=== PATIENT | male | born 1955 | race Caucasian/White ===

== ENCOUNTER → 2019-09-23 07:41 | Outpatient (BNVA) | payer BC, SELFPAY | PROVIDERS: Family Provider Family Medicine; PCP Family Medicine; Visit Provider Urology | DX: Z12.5 Encounter for screening for malignant neoplasm of prostate (principal); N41.9 Inflammatory disease of prostate, unspecified; N41.1 Chronic prostatitis | CPT/HCPCS: 81001 ==

== ENCOUNTER 2020-03-15 07:51 | Outpatient (CLI) | payer OTHER, SELFPAY ==
[2020-03-15 08:30] VITALS: BMI 25.0
--- NOTE | 2020-03-15 08:30 | ECG_ITS ---
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 Interpretive Statements NAME OF STUDY: EXERCISE SESTAMIBI STRESS TEST INDICATION: [Chest Pain, ] Procedure:At the baseline, the blood pressure was 150/76 mmHg with a heart rate of 91 Bpm. The electrocardiogram showed sinus rhythm with . Normal axis. Patient exercised for a total of 7 minutes and 26 seconds. Maximum heart rate was 138 which is 87% of maximum predicted heart rate ,with a blood pressure 199/64 mmHg. The EKG at the peak infusion revealed sinus rhythm with no significant ST-T wave changes. Right bundle branch block was noted at the end of the recovery.. Blood pressure at the end of the recovery phase was 161/70 mmHg with a heart rate of 96 beats per minute. CONCLUSION: 1. No significant EKG changes with the LexiScan infusion. 2. No LexiScan induced chest pain or cardiac arrhythmia. 3. Hypertensive blood pressure response. Normal heart rate response. 4. Myocardial perfusion images will be interpreted separately. Electronically Signed On 03-17-2020 9:35:32 CDT by Anders Dietrich M.D. [id number]
--- NOTE | 2020-03-15 08:30 | NMCV_ITS ---
NM rosales perf SPECT r/s* [id number] Tom Peguero Age: 64 Gender: M : 1955 Exam Date: 03/15/2020 08:30 Ordering Phys: Sony Swift MD Technologist: SHIRLEY Ludwig Exam Location: [facility] Indications: CAD STRESS TEST Please see separate stress test report in [facility] for full findings IMAGE PROTOCOL Rest/Stress 1 Exercise Day Radiopharmaceutical Dose (mCi) Administration Site Administered by Rest: Tc-99m 10.9 IV SHIRLEY Ludwig Sestamibi Stress:Tc-99m 32.7 IV SHIRLEY Turner Sestamibi Rest: 15-Mar-2020 60 Discovery 630 Stress: 15-Mar-2020 30 Discovery 630 Radiopharmaceutical was injected at 85 % maximum heart rate. Images obtained in supine and prone position. SPECT RESULTS Technical Quality: Excellent Raw Data Analysis: Normal Image Corrections: No attenuation or motion correction applied Summed Stress Score: 0 Summed Rest Score: 0 Summed Difference Score: 0 PERFUSION FINDINGS Fairly uniform myocardial tracer uptake with no significant perfusion abnormalities FUNCTIONAL RESULTS (calculated via Gated SPECT) Stress Image LV EF (%): 57 Stress EDV (mL):54 TID: 0.97 Stress ESV (mL):23 FUNCTIONAL FINDINGS: Segmental wall motion analysis revealing no gross wall motion normalities IMPRESSIONS 1. Unremarkable myocardial perfusion imaging 2. Normal LV ejection fraction 57%. 3. LV wall motion analysis revealing no gross wall motion normalities. 4. Normal LV volume. No significant coronary ischemia, based on the above finding Dr Spencer Blakely MD FACC (Electronically Signed) Final Date: 15 March 2020 12:40 S
[2020-03-15 10:09] VITALS: BP 172/75; PULSE 96
== END 2020-03-15 07:52 | disposition home or self-care (01) ==
PROVIDERS: PCP Family Medicine; Visit Provider Family Medicine
DX: I25.10 Atherosclerotic heart disease of native coronary artery without angina pectoris (principal); R07.9 Chest pain, unspecified
CPT/HCPCS: 78452; 93017; A9500

== ENCOUNTER 2020-06-02 20:02 | Observation (INO) | payer OTHER, SELFPAY ==
[2020-06-02] VITALS (11 sets, daily range): BP systolic 146–182; BP diastolic 85–106; PULSE 64–79; RESP 12–22; TEMP 36.6–36.9; O2SAT 22–98; BMI 25.8
--- NOTE | 2020-06-02 20:05 | ECG_ITS ---
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 Measurements Intervals [place] Rate: 72 P: 51 [place]: 154 QRS: 48 QRSD: 144 T: 42 QT: 404 QTc: 443 Interpretive Statements SINUS RHYTHM RIGHT BUNDLE BRANCH BLOCK [120+ ms QRS DURATION, UPRIGHT V1, 40+ ms S IN I/aVL/V4/V5/V6] Compared to ECG 02/02/2019 21:18:35 Right bundle-branch block now present Sinus bradycardia no longer present Electronically Signed On 06-02-2020 22:33:33 SECOND GRADE TEACHER by Jenny Marie M.D. [id number]
--- NOTE | 2020-06-02 20:05 | XR_ITS ---
WS: [id number] XR chest 1V portable [id number] REASON FOR EXAM: cp FINDINGS: The chest is unchanged compared to previous examination of 02/02/2019. The heart and mediastinum are within normal limits. No active pulmonary parenchymal or pleural disease identified. Calcified granulomatous changes in bot h lungs. No significant abnormality of the bony thorax. XR/XR chest 1V portable [id number] IMPRESSION: No acute chest abnormality.
--- NOTE | 2020-06-02 20:26 | ED_ITS ---
HPI - Chest Pain General: Chief Complaint: Chest Pain Stated Complaint: cp Time Seen by Provider: 06/02/20 20:17 Source: patient Mode of arrival: ambulatory Limitations: no limitations History of Present Illness: HPI narrative: Mr. Peguero is a nice 64-year-old male who comes in complaining of intermittent chest pain for the past 3 days. He describes the pain is severe in the upper center of his chest. Radiates through sometimes to his back. He denies any associated shortness of breath, nausea vomiting or diaphoresis. He does claim even the most minimal exertion will bring his pain on. Currently at this time he is resting and he states he has no pain. Rest does make the pain better he did not try any nitroglycerin as what he has at home has . Patient states that the symptoms feel exactly like when he had a heart attack in the past. Patient had 2 stents placed at that time. Associated symptoms: Deny abdominal pain, diaphoresis, dyspnea, fever(s), nausea, palpitations, syncope or vomiting Review of Systems Const: Denies: fever(s), chills, body aches, fatigue, malaise or diaphoresis Eyes: Denies: change in vision, blurry vision, photophobia, eye discomfort, eye discharge, eye redness or yellow eyes ENMT: Denies: throat pain, odynophagia, hoarseness, swelling of lips/tongue, ear or mastoid pain, ear discharge, change in hearing or nasal discharge Card: Reports: chest pain; Denies: palpitations, irregular heart rhythm, edema, lightheadedness, syncope, pre-syncope, dyspnea on exertion or orthopnea Resp: Denies: dyspnea, productive cough, non-productive cough, wheezing, hemoptysis or chest congestion GI: Denies: abdominal pain, nausea, vomiting, hematemesis, coffee ground emesis, heartburn, diarrhea, constipation, GI cramping, hematochezia or melena : Denies: flank pain, dysuria, urinary frequency, urinary urgency or hematuria Musc: Denies: neck pain, back pain, extremity pain, extremity swelling, joint pain, joint swelling, joint redness, joint warmth or joint stiffness Skin/Breast: Denies: rash, pruritus, erythema, skin pain or skin tenderness Neuro: Denies: headache(s), numbness in extremities, weakness in extremities, sensory changes, lack of coordination, difficulty walking, dizziness, vertigo, confusion, Slurred speech present or seizure-like activity Guilherme/Lymph: Denies: easy bruising, easy bleeding, petechiae, purpura or enlarged lymph nodes All/Imm: Denies: urticaria, throat swelling, tongue swelling, facial swelling or acute wheezing PFSH ED PFSH: Medical History (Updated 06/02/20 @ 23:34 by Saurabh Cuevas MD) Anxiety Arrhythmia CAD (coronary artery disease) Chronic prostatitis GERD (gastroesophageal reflux disease) Hyperlipidemia Hypertension Urinary calculus, unspecified Surgical History H/O heart artery stent H/O laminectomy H/O shoulder surgery Family History Mother , 62 CAD (coronary artery disease) Social History Smoking and tobacco status: never smoked Alcohol intake: never Adopted: No Caregiver/support person: No Lives independently: No Household members: spouse Marital status: Current occupational status: employed History of recent travel: No Current gender identity: Male Physical Exam Const: COMMON NORMALS: no acute distress, patient oriented x3, no limitations and alert GENERAL APPEARANCE: cooperative HENMT: COMMON NORMALS: normocephalic, atraumatic, external ears normal, EAC's normal and Normal external nose present HEAD & SCALP: normal to inspection, normocephalic and atraumatic FACE & SINUS: normal facial exam and face symmetric NOSE: Normal external nose present and Normal nares present EXTERNAL EAR: Yes external ears normal EXTERNAL AUDITORY CANAL: EAC's normal MOUTH: Normal oral and palatal mucosa present, lip normal and tongue normal Eye: COMMON NORMALS: Equal, round and reactive pupils present and conjunctivae normal GENERAL EYE: appearance normal, both eyes and all related structures ALIGNMENT: Yes alignment normal PERIORBITAL: periorbital findings normal EYELID: eyelids normal CONJUNCTIVA: Yes conjunctivae normal SCLERA: sclerae normal PUPIL: Yes Equal, round and reactive pupils present Neck/C-Spine: COMMON NORMALS: full ROM, no lymphadenopathy, supple, no meningeal signs and no JVD GENERAL: Yes normal visual inspection and Yes trachea midline Chest: COMMONS NORMALS: normal inspection of the chest and normal palpation of entire chest wall Resp: COMMON NORMALS: normal respiratory effort, No retractions, No use of accessory muscles and clear to auscultation bilaterally EFFORT & INSPECTION: Yes able to speak in complete sentences and Yes symmetric chest movement AUSCULTATION: clear to auscultation bilaterally, no crackles, no rales, no rhonchi and no wheezes Cardio: COMMON NORMALS: no JVD, regular rate, regular rhythm, S1 normal heart sound present and S2 normal heart sound present RATE: regular rate RHYTHM: regular rhythm HEART SOUNDS: S1 normal heart sound present, S2 normal heart sound present, no click, no gallops, no murmurs and no rubs GI: COMMON NORMALS: Soft to palpation and No hepatosplenomegaly present PALPATION: Yes Soft to palpation, No Tenderness to palpation present (GI), No Guarding due to palpation present (GI), No Rigid due to palpation, Yes No hepatosplenomegaly present, No Hernia present, No Palpable mass present and No Pulsatile mass present : COMMON NORMALS: Yes no CVA tenderness BLADDER/KIDNEY EXAM: Yes no CVA tenderness Back/Pelvis: COMMON NORMALS: no CVA tenderness, thoracic and lumbar spine normal to inspection, no thoracic nor lumbar tenderness and thoraco-lumbar ROM normal Extremity: COMMON NORMALS: normal to inspection, full ROM, capillary refill normal, no joint enlargement, no clubbing, cyanosis or edema and no calf tenderness Neuro: COMMON NORMALS: patient oriented x3, CN's II-XII intact bilaterally, moves all extremities, no focal motor deficits and no sensory deficits noted SENSORIUM/ORIENTATION: Yes alert MENINGEAL SIGNS: Yes no meningeal signs SPEECH: speech normal Psych: COMMON NORMALS: mental status grossly normal, Normal thought process present, cooperative, normal affect, speech normal and activity/motor behavior normal SPEECH: Yes normal speech THOUGHT PROCESS: Normal thought process present Skin: COMMON NORMALS: no rashes or lesions noted, turgor normal, no jaundice, no petechiae and no mottling GENERAL SKIN EXAM: no rashes or lesions noted and turgor normal Course Vital Signs: Vital signs: Vital Signs Temperature 97.9 F 06/02/20 23:45 Pulse Rate 72 06/02/20 23:52 Respiratory Rate 20 H 06/02/20 23:54 Blood Pressure 149/92 06/02/20 23:54 Pulse Oximetry 97 06/02/20 23:24 MDM - Chest Pain MDM Narrative: Medical decision making narrative: Mr. Peguero is a nice 64-year-old male who comes in complaining of chest pain. The chest pain that he has is similar to when he had a heart attack in the past. So far his cardiac enzymes have been negative x2 and his EKG shows a stable right bundle branch block. Patient is pain-free after half a milligram of Dilaudid. He had declined nitroglycerin as he had adverse reaction to it in the past. CTA is negative. I have reviewed the case in full with Dr. Cuevas who agrees to come and evaluate the patient and admit for further cardiac evaluation. Lab Data: Attestation: I reviewed the patient's lab results. Labs: Lab Results 06/02/20 06/02/20 06/02/20 Range/Units 20:35 20:35 20:35 WBC 5.5 (4.0-10.0) 10^3/ uL RBC 5.21 (4.1-5.3) 10^6/u L Hgb 15.3 (11.7-16.6) g/dL Hct 46.0 (42.0-52.0) % MCV 88.3 (80-94) fL MCH 29.4 (28.0-34.0) pg MCHC 33.3 (30.0-36.0) g/dL RDW 13.5 (12.1-15.1) % Plt Count 140 (130-400) 10^3/c mm MPV 9.2 (7.4-10.4) fL Neut % (Auto) 66.9 % Lymph % (Auto) 23.0 % Weakley % (Auto) 7.3 % Eos % (Auto) 2.0 % Baso % (Auto) 0.4 % Neut # (Auto) 3.67 (1.8-7.7) 10^3/u L Lymph # (Auto) 1.3 (0.8-4.8) 10^3/u L Weakley # (Auto) 0.4 (0.2-0.9) 10^3/u L Eos # (Auto) 0.1 (0.0-0.8) 10^3/u L Baso # (Auto) 0.0 (0.0-0.1) 10^3/u L Nucleated RBC % (a uto) 0 % Nucleated RBCs # 0.0 /100WBC PT 13.10 (12.1-14.9) SECO NDS INR 0.96 (0.8-1.2) Sodium 139 (136-145) mmol/L Potassium 3.5 (3.5-5.1) mmol/L Chloride 104 (98-107) mmol/L Carbon Dioxide 25 (22-29) mmol/L Anion Gap 13.5 (5-19) BUN 20 (8-23) mg/dL Creatinine 0.9 (0.7-1.2) mg/dL GFR Calculation 85.5 L (90-130) mL/min Glucose 152 H (65-115) mg/dL Calculated Osmolal ity 294 (285-295) mOsm/k g Calcium 9.6 (8.5-10.5) mg/dL Total Bilirubin 1.4 H (0.15-1.2) mg/dL AST 21 (0-40) U/L ALT 26 (0-41) U/L Alkaline Phosphata se 87 (40-130) IU/L Troponin T Baselin e (0-15) ng/L Troponin T 120 Min fabian (0-15) ng/L Delta Troponin T (0-10) ABS# Total Protein 6.8 (6.6-8.7) g/dL Albumin 4.6 (3.5-5.2) g/dL Globulin 2.2 (1.3-4.6) g/dL 06/02/20 06/02/20 Range/Units 20:35 22:00 WBC (4.0-10.0) 10^3/ uL RBC (4.1-5.3) 10^6/u L Hgb (11.7-16.6) g/dL Hct (42.0-52.0) % MCV (80-94) fL MCH (28.0-34.0) pg MCHC (30.0-36.0) g/dL RDW (12.1-15.1) % Plt Count (130-400) 10^3/c mm MPV (7.4-10.4) fL Neut % (Auto) % Lymph % (Auto) % Weakley % (Auto) % Eos % (Auto) % Baso % (Auto) % Neut # (Auto) (1.8-7.7) 10^3/u L Lymph # (Auto) (0.8-4.8) 10^3/u L Weakley # (Auto) (0.2-0.9) 10^3/u L Eos # (Auto) (0.0-0.8) 10^3/u L Baso # (Auto) (0.0-0.1) 10^3/u L Nucleated RBC % (a uto) % Nucleated RBCs # /100WBC PT (12.1-14.9) SECO NDS INR (0.8-1.2) Sodium (136-145) mmol/L Potassium (3.5-5.1) mmol/L Chloride (98-107) mmol/L Carbon Dioxide (22-29) mmol/L Anion Gap (5-19) BUN (8-23) mg/dL Creatinine (0.7-1.2) mg/dL GFR Calculation (90-130) mL/min Glucose (65-115) mg/dL Calculated Osmolal ity (285-295) mOsm/k g Calcium (8.5-10.5) mg/dL Total Bilirubin (0.15-1.2) mg/dL AST (0-40) U/L ALT (0-41) U/L Alkaline Phosphata se (40-130) IU/L Troponin T Baselin e 6 (0-15) ng/L Troponin T 120 Min fabian 6.61 (0-15) ng/L Delta Troponin T 0.61 (0-10) ABS# Total Protein (6.6-8.7) g/dL Albumin (3.5-5.2) g/dL Globulin (1.3-4.6) g/dL Imaging Data^: CXR: Attestation: I personally reviewed and interpreted this imaging study as follows: My impression: No acute cardiopulmonary findings. CT Chest: Radiologist's impression: [address] [address] [address] Scan Report Signed Patient: Tom Peguero Unit #: [id number] : 1955 Age/Sex: 64 / M ADM Date: 06/02/20 Loc: ER Room/Bed: Attending Dr: Ordering Provider/Ordering MD: Kat Wakefield DO Date of Service: 06/02/20 Procedure(s): CT angio chest PE protcl [id number] Accession Number(s): [id number] Report Number: [id number] PROCEDURE INFORMATION: Exam: CT Angiography Chest With Contrast Exam date and time: 06/02/2020 10:03 PM Age: 64 years old Clinical indication: Pain; Shortness of breath; Chest pressure; Prior surgery; Surgery type: Stents; Additional info: Chest pain TECHNIQUE: Imaging protocol: Computed tomographic angiography of the chest with intravenous contrast. 3D rendering (Not supervised by radiologist): MIP and/or 3D reconstructed images were created by the technologist. Radiation optimization: All CT scans at this facility use at least one of these dose optimization techniques: automated exposure control; mA and/or kV adjustment per patient size (includes targeted exams where dose is matched to clinical indication); or iterative reconstruction. Contrast material: OMNI 350; Contrast volume: 93 ml; Contrast route: INTRAVENOUS (IV); COMPARISON: CT chest w con* [id number] 09/20/2018 10:22 AM RADIATION DOSE METRICS: Total DLP (mGy-cm): 667.36 FINDINGS: Pulmonary arteries: Pulmonary arteries are well opacified. Pulmonary arteries are normal in caliber. No filling defects are demonstrated. No evidence of pulmonary embolism. Aorta: Atherosclerosis of the thoracic aorta. No aneurysm or dissection. Lungs: Mild dependent atelectasis at the lung bases. Additional atelectasis noted in the lingula and left lower lobe. No consolidative pulmonary infiltrate noted. Pleural space: No pneumothorax. No pleural effusion. Heart: Mild cardiomegaly is noted. No pericardial effusion. Lymph nodes: No pathologically enlarged lymph nodes are demonstrated. Liver: Calcified granulomas are seen in the liver. Spleen: Calcified granulomas are noted in the spleen. Kidneys and ureters: Bilateral simple appearing renal cysts measuring up to 8 cm in diameter noted. Bones/joints: Unremarkable. No acute fracture. Soft tissues: Unremarkable. CT/CT angio chest PE protcl [id number] IMPRESSION: 1. No evidence of pulmonary embolism. 2. No evidence of aortic dissection. 3. Mild cardiomegaly is noted. 4. Mild dependent atelectasis at the lung bases. Additional atelectasis noted in the lingula and left lower lobe. No consolidative pulmonary infiltrate noted. 5. Changes of old granulomatous disease are identified. COMMENTS: Consistent with the [place] [employer]'s Incidental Findings Committee white paper (J Am Kirk Radiol 2018): Any incidental renal lesion less than 1 cm or classified as too small to characterize, or any incidental cystic renal lesion characterized as simple-appearing, is likely benign. No follow-up imaging is recommended for these lesions per consensus recommendations based on imaging criteria. Radiation Dose CTDIVOL = (mGy): DLP = 667.36 (mGy-cm) Dictated By: Link Buckner MD Signed By: Link Buckner MD Signed Date/Time: 06/02/202240 DD/ 39 EKG Data^: EKG 1: Attestation: I personally reviewed and interpreted this EKG as follows: EKG interpretation date: 06/02/20 EKG interpretation time: 20:20 Interpretation: Normal sinus rhythm at 72 beats a minute, right bundle branch block, normal axis, nonspecific ST and T wave changes. EKG 2: Attestation: I personally reviewed and interpreted this EKG as follows: EKG interpretation date: 06/02/20 EKG interpretation time: 21:49 Discharge Plan Discharge Patient Disposition: Placed in Observation Admit Provider: Saurabh Cuevas Clinical Impression: Chest pain Qualifiers: Chest pain type: precordial pain Qualified Code(s): R07.2 - Precordial pain Condition: Stable Referrals: Sony Swift MD [Primary Care Provider] - Discharge Date/Time: 06/02/20 23:30 Coding Level of Care Code ED Renewable Energy Project Manager for Chg Fwd Exam Comprehensive
[2020-06-02] MEDS: aspirin 81 mg Chew Tablet 324 MG PO (20:50)
[2020-06-02 21:06] LABS: Basophils % 0.4 %; Eosinophils # 0.1 10^3/uL (0.0-0.8); Hemoglobin 15.3 g/dL (11.7-16.6); Lymphocytes # 1.3 10^3/uL (0.8-4.8); Mean Corpuscular HGB Conc 33.3 g/dL (30.0-36.0); Mean Corpuscular Hemoglobin 29.4 pg (28.0-34.0); Mean Corpuscular Volume 88.3 fL (80-94); Mean Platelet Volume 9.2 fL (7.4-10.4); Monocytes # 0.4 10^3/uL (0.2-0.9); Monocytes % 7.3 %; Neutrophils # 3.67 10^3/uL (1.8-7.7); Neutrophils % 66.9 %; Nucleated Red Blood Cells % 0 %; Platelet Count 140 10^3/cmm (130-400); Red Blood Count 5.21 10^6/uL (4.1-5.3); Red Cell Distribution Width 13.5 % (12.1-15.1); White Blood Count 5.5 10^3/uL (4.0-10.0)
[2020-06-02] MEDS: ondansetron 2 mg/ML SDV 2 mL 4 MG IVP (21:17)
[2020-06-02] MEDS: HYDROmorphone 1 mg/mL INJ 1 mL 0.5 MG IVP (21:18)
[2020-06-02 21:28] LABS: Alanine Aminotransferase 26 U/L (0-41); Albumin Level 4.6 g/dL (3.5-5.2); Alkaline Phosphatase 87 IU/L (40-130); Anion Gap 13.5 (5-19); Aspartate Amino Transferase 21 U/L (0-40); Blood Urea Nitrogen 20 mg/dL (8-23); Calcium 9.6 mg/dL (8.5-10.5); Carbon Dioxide 25 mmol/L (22-29); Chloride 104 mmol/L (98-107); Globulin 2.2 g/dL (1.3-4.6); Glomerular Filtration Rate 85.5 mL/min (90-130); Glucose 152 mg/dL (65-115); Osmolality Calculated 294 mOsm/kg (285-295); Potassium 3.5 mmol/L (3.5-5.1); Sodium 139 mmol/L (136-145); Total Bilirubin 1.4 mg/dL (0.15-1.2); Total Protein 6.8 g/dL (6.6-8.7); Troponin(5th) Baseline 6 ng/L (0-15)
[2020-06-02 21:35] LABS: INR 0.96 (0.8-1.2)
--- NOTE | 2020-06-02 21:45 | CTR_ITS ---
PROCEDURE INFORMATION: Exam: CT Angiography Chest With Contrast Exam date and time: 06/02/2020 10:03 PM Age: 64 years old Clinical indication: Pain; Shortness of breath; Chest pressure; Prior surgery; Surgery type: Stents; Additional info: Chest pain TECHNIQUE: Imaging protocol: Computed tomographic angiography of the chest with intravenous contrast. 3D rendering (Not supervised by radiologist): MIP and/or 3D reconstructed images were created by the technologist. Radiation optimization: All CT scans at this facility use at least one of these dose optimization techniques: automated exposure control; mA and/or kV adjustment per patient size (includes targeted exams where dose is matched to clinical indication); or iterative reconstruction. Contrast material: OMNI 350; Contrast volume: 93 ml; Contrast route: INTRAVENOUS (IV); COMPARISON: CT chest w con* [id number] 09/20/2018 10:22 AM RADIATION DOSE METRICS: Total DLP (mGy-cm): 667.36 FINDINGS: Pulmonary arteries: Pulmonary arteries are well opacified. Pulmonary arteries are normal in caliber. No filling defects are demonstrated. No evidence of pulmonary embolism. Aorta: Atherosclerosis of the thoracic aorta. No aneurysm or dissection. Lungs: Mild dependent atelectasis at the lung bases. Additional atelectasis noted in the lingula and left lower lobe. No consolidative pulmonary infiltrate noted. Pleural space: No pneumothorax. No pleural effusion. Heart: Mild cardiomegaly is noted. No pericardial effusion. Lymph nodes: No pathologically enlarged lymph nodes are demonstrated. Liver: Calcified granulomas are seen in the liver. Spleen: Calcified granulomas are noted in the spleen. Kidneys and ureters: Bilateral simple appearing renal cysts measuring up to 8 cm in diameter noted. Bones/joints: Unremarkable. No acute fracture. Soft tissues: Unremarkable. CT/CT angio chest PE protcl [id number] IMPRESSION: 1. No evidence of pulmonary embolism. 2. No evidence of aortic dissection. 3. Mild cardiomegaly is noted. 4. Mild dependent atelectasis at the lung bases. Additional atelectasis noted in the lingula and left lower lobe. No consolidative pulmonary infiltrate noted. 5. Changes of old granulomatous disease are identified. COMMENTS: Consistent with the [place] [employer]'s Incidental Findings Committee white paper (J Am Kirk Radiol 2018): Any incidental renal lesion less than 1 cm or classified as too small to characterize, or any incidental cystic renal lesion characterized as simple-appearing, is likely benign. No follow-up imaging is recommended for these lesions per consensus recommendations based on imaging criteria. Radiation Dose CTDIVOL = (mGy): DLP = 667.36 (mGy-cm)
--- NOTE | 2020-06-02 22:05 | ECG_ITS ---
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 Measurements Intervals [place] Rate: 71 P: 49 [place]: 157 QRS: 18 QRSD: 135 T: 31 QT: 404 QTc: 441 Interpretive Statements SINUS RHYTHM RIGHT BUNDLE BRANCH BLOCK [120+ ms QRS DURATION, UPRIGHT V1, 40+ ms S IN I/aVL/V4/V5/V6] Compared to ECG 06/02/2020 20:20:23 No significant changes Electronically Signed On 06-02-2020 22:39:11 SEAFOOD SPECIALIST by Jenny Marie M.D. [id number]
[2020-06-02] MEDS: iohexol 350 mg/mL 100 mL Btl IV (22:27)
[2020-06-02 22:45] LABS: Troponin 5 2HR 6.61 ng/L (0-15); Troponin 5 2HR Delta 0.61 ABS# (0-10)
--- NOTE | 2020-06-02 23:28 | PC.NURSE ---
pt reports last time he was given NITRO his BP dropped and he was coded
--- NOTE | 2020-06-02 23:33 | P.HP_ITS ---
Providers/Chief Complaint Admitting Physician: Saurabh Cuevas MD Primary Care Provider: Sony Swift MD Chief Complaint: cp History of Present Illness Tom Peguero is a 64 year old male with a past medical history of CAD status post stenting to obtuse marginal, LAD, in 2018 on aspirin, Plavix, not taking statin due to GI side effects, hypertension, hyperlipidemia, GERD who presents [facility] due to complaints of chest pain. Patient states on Sunday, he was moving a piece of light furniture, when he started to notice substernal chest pain, sharp, pressure-like, squeezing-like chest pain, some radiating to his back, associate with shortness of breath, no lightheadedness, dizziness, no nausea, no vomiting, lasting about 30 minutes, improving with rest. On Sunday, he tells me that he was walking to his truck in the morning, when he noticed similar type of chest pain, improving with rest, associated shortness of breath, Lasting a few minutes. And then again on Sunday evening, when he was walking from his truck, similar episodes of chest pain, thus he decided to come to the emergency room. He tells me that he has had similar characteristic chest pain when he had his stent placed to his obtuse marginal artery. Patient's pain resolved by the time he arrived to the emergency room, EKG right bundle branch block chronic, no acute ST-T wave weir es, baseline troponin was 6, and of 120-minute troponin was 6.61, delta of 0.6, CT angiogram of the chest did not show any pulmonary emboli or aortic dissection Review of Systems Const: Denies: fever(s), chills, fatigue or malaise Eyes: Denies: change in vision or blurry vision ENMT: Denies: nasal congestion Card: Reports: chest pain; Denies: edema, syncope or pre-syncope Resp: Reports: dyspnea; Denies: productive cough, non-productive cough or wheezing GI: Denies: abdominal pain, nausea, vomiting, hematemesis, diarrhea, constipation, hematochezia or melena : Denies: flank pain, difficulty urinating, dysuria or urinary frequency Musc: Denies: neck pain or back pain Skin/Breast: Denies: rash Neuro: Denies: headache(s), dizziness or vertigo Psych: Denies: anxiety or depression Endo: Denies: polyuria or polydipsia Medications/Allergies Home Medications Medication Instructions Recorded Confirmed Last Taken Type clopidogrel 75 mg tablet 75 mg PO DAILY #90 tab 11/07/19 06/02/20 06/02/20 Rx Metoprolol Tab 25 mg PO DAILY 06/02/20 06/02/20 Unknown History aspirin 81 mg PO DAILY 06/02/20 06/02/20 06/02/20 History ibuprofen 400 - 600 mg PO PRN 06/02/20 06/02/20 Unknown History multivitamin [Multiple Vitamins] 1 tab PO DAILY 06/02/20 06/02/20 Unknown His tory Allergies Allergy/AdvReac Type Severity Reaction Status Date / Time atorvastatin Allergy NA Verified 06/02/20 23:39 morphine Allergy NA Verified 06/02/20 23:39 nitroglycerin Allergy ADR/ALGY-Hy Verified 06/02/20 23:41 potension simvastatin Allergy NA Verified 06/02/20 23:39 PFSH Acute PFSH: Medical History Anxiety Arrhythmia CAD (coronary artery disease) Chronic prostatitis GERD (gastroesophageal reflux disease) Hyperlipidemia Hypertension Urinary calculus, unspecified Surgical History H/O heart artery stent H/O laminectomy H/O shoulder surgery Family History Mother , 62 CAD (coronary artery disease) Social History Smoking and tobacco status: never smoked Alcohol intake: never Adopted: No Caregiver/support person: No Lives independently: No Household members: spouse Marital status: Current occupational status: employed History of recent travel: No Current gender identity: Male Vitals/I&O/Wt Last Vital Signs Temp 98.5 F 06/02/20 20:15 Pulse 76 06/02/20 23:10 Resp 18 06/02/20 23:10 BP 155/85 06/02/20 23:10 Pulse Ox 98 06/02/20 23:10 Weight last 48 hrs Weight 77.111 kg Physical Exam Const: COMMON NORMALS: no acute distress and patient oriented x3 HENMT: COMMON NORMALS: normocephalic HEAD & SCALP: normocephalic Neck/C-Spine: COMMON NORMALS: no JVD Resp: COMMON NORMALS: normal respiratory effort, No retractions, No use of accessory muscles and clear to auscultation bilaterally AUSCULTATION: clear to auscultation bilaterally Cardio: COMMON NORMALS: no JVD, regular rate, regular rhythm, S1 normal heart sound present and S2 normal heart sound present RATE: regular rate RHYTHM: regular rhythm HEART SOUNDS: S1 normal heart sound present and S2 normal heart sound present GI: COMMON NORMALS: Normal to inspection, nondistended, normoactive bowel sounds present, Soft to palpation, non-tender, No hepatosplenomegaly present, no masses and no bruits PALPATION: Yes Soft to palpation and Yes No hepatosplenomegaly present Extremity: COMMON NORMALS: capillary refill normal, no clubbing, cyanosis or edema, no calf tenderness and no pedal edema Neuro: COMMON NORMALS: patient oriented x3 Psych: COMMON NORMALS: mental status grossly normal Data : 06/02/20 20:35 06/02/20 20:35 A&P Assessment and plan (1) Chest pain: -Chest pain does sound cardiac in etiology -History of CAD status post stenting to obtuse marginal and LAD -Is compliant with aspirin and Plavix -Has not been taking a statin due to GI side effects -Stress test March 15, 2020 showed EF 57%, wall motion revealing no gross wall motion abnormalities, no significant coronary ischemia on the stress test PLAN: -Admit to cardiac stepdown unit -Aspirin, statin, nitro, Plavix, beta-connor -Serial EKGs, serial troponins -Monitor for chest pain -Telemetry monitoring -Nitro as needed, monitor blood pressures and evaluate with nitroglycerin as patient tells me that he went into cardiac arrest when he was given too much nitroglycerin -Order cardiac echocardiogram Status: Acute Qualifiers: Chest pain type: precordial pain Qualified Code(s): R07.2 - Precordial pain (2) CAD (coronary artery disease): Status: Acute Qualifiers: Coronary Disease-Associated Artery/Lesion type: [place] artery [place] vs. transplanted heart: [place] heart Associated angina: with stable angina Qualified Code(s): I25.118 - Atherosclerotic heart disease of [place] coronary artery with other forms of angina pectoris (3) Hypertension: Status: Acute Qualifiers: Hypertension type: essential hypertension Qualified Code(s): I10 - Essential (primary) hypertension (4) Hyperlipidemia: Status: Acute Qualifiers: Hyperlipidemia type: mixed hyperlipidemia Qualified Code(s): E78.2 - Mixed hyperlipidemia (5) GERD (gastroesophageal reflux disease): Status: Acute Attestations Medical Necessity Statement*: Patient requires hospitalization, outpatient with observation, for chest pain Coding Level of Care Code Acute 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 transplanted heart: [place] heart Associated angina: with stable angina Hypertension I10 Hypertension type: essential hypertension Hyperlipidemia E78.2 Hyperlipidemia type: mixed hyperlipidemia GERD (gastroesophageal reflux disease) K21.9
[2020-06-03] VITALS (18 sets, daily range): BP systolic 99–158; BP diastolic 43–101; PULSE 64–85; RESP 11–19; TEMP 36.5–37; O2SAT 94–99
[2020-06-03] MEDS: sodium chloride 0.9% 1,000 ML 100 ML IV (00:34)
[2020-06-03] MEDS: enoxaparin 40 mg/0.4 mL Syringe SUBCUT (00:38)
--- NOTE | 2020-06-03 01:01 | PC.NURSE ---
Patient arrived to the floor from the ED after report was received via phone. Patient is alert and oriented and ambulatory. Patient denies pain or any other complaints. VSS on room air. SR on monitor. Patient has been oriented to his room and has call light within reach. Will monitor.
--- NOTE | 2020-06-03 02:05 | ECG_ITS ---
[facility] Test Date: 2020-06-03 Pat Name: Tom Peguero Department: Room: 107 Gender: Male Ear Specialist: : 1955 Requested By: Jessica Morrison Order Number: [id number] Reading MD: FOREST BROWN Measurements Intervals [place] Rate: 63 P: 48 RI: 161 QRS: 46 QRSD: 89 T: 34 QT: 386 QTc: 396 Interpretive Statements SINUS RHYTHM NONSPECIFIC T-WAVE ABNORMALITY Compared to ECG 06/02/2020 21:49:25 T-wave abnormality now present Right bundle-branch block no longer present Electronically Signed On 06-04-2020 19:35:19 GLASS PROCESSING WORKER by FOREST BROWN [id number]
[2020-06-03 03:00] LABS: Basophils % 0.5 %; Eosinophils # 0.1 10^3/uL (0.0-0.8); Eosinophils % 2.1 %; Hematocrit 44.8 % (42.0-52.0); Hemoglobin 14.7 g/dL (11.7-16.6); Lymphocytes # 1.7 10^3/uL (0.8-4.8); Lymphocytes % 27.6 %; Mean Corpuscular HGB Conc 32.8 g/dL (30.0-36.0); Mean Corpuscular Hemoglobin 29.3 pg (28.0-34.0); Mean Corpuscular Volume 89.2 fL (80-94); Mean Platelet Volume 9.3 fL (7.4-10.4); Monocytes # 0.5 10^3/uL (0.2-0.9); Monocytes % 8.2 %; Neutrophils # 3.73 10^3/uL (1.8-7.7); Neutrophils % 61.3 %; Nucleated Red Blood Cells % 0 %; Platelet Count 139 10^3/cmm (130-400); Red Blood Count 5.02 10^6/uL (4.1-5.3); Red Cell Distribution Width 13.4 % (12.1-15.1); White Blood Count 6.1 10^3/uL (4.0-10.0)
[2020-06-03 03:22] LABS: Alanine Aminotransferase 23 U/L (0-41); Albumin Level 4.3 g/dL (3.5-5.2); Alkaline Phosphatase 79 IU/L (40-130); Anion Gap 12.7 (5-19); Aspartate Amino Transferase 18 U/L (0-40); Blood Urea Nitrogen 18 mg/dL (8-23); Calcium 9.1 mg/dL (8.5-10.5); Carbon Dioxide 26 mmol/L (22-29); Chloride 104 mmol/L (98-107); Globulin 2.2 g/dL (1.3-4.6); Glomerular Filtration Rate 75.7 mL/min (90-130); Glucose 94 mg/dL (65-115); Osmolality Calculated 290 mOsm/kg (285-295); Potassium 3.7 mmol/L (3.5-5.1); Sodium 139 mmol/L (136-145); Total Bilirubin 1.2 mg/dL (0.15-1.2); Total Protein 6.5 g/dL (6.6-8.7)
[2020-06-03 03:23] LABS: Troponin 5 6HR 8.13 ng/L (0-15); Troponin 5 6HR Delta 2.13 ng/L (0-12)
[2020-06-03 05:50] LABS: Cholesterol 195 mg/dL (0-200); HDL Cholesterol 30 mg/dL (60-100); LDL Cholesterol Calculated 135 mg/dL (50-129); Triglycerides 151 mg/dL (0-150)
[2020-06-03 05:59] LABS: Magnesium 2.3 mg/dL (1.7-2.3); Phosphorus 3.6 mg/dL (2.5-4.5); Thyroid Stimulating Hormone 4.42 uIU/mL (0.27-4.20)
[2020-06-03 06:31] LABS: Estmated Average Glucose 111; Hemoglobin A1C 5.5 % (4.0-6.0)
--- NOTE | 2020-06-03 07:46 | PM.CONSULT ---
Providers/Reason For Consult Consulting Physican/Specialty*: Anders Dietrich MD/cardiology Reason for Consult*: Chest pain Requesting Physcian: Dr Cuevas Attending Physician: Saurabh Cuevas MD Primary Care Provider: Sony Swift MD History of Present Illness History of Present Illness Tom Peguero is a 64 year old male who sees Dr. Blakely in the office with past medical history of coronary artery disease status post PCI of LAD and OM in 2018, hypertension and hyperlipidemia presented to the hospital with chest pain. According to patient he had first episode of chest pain on Sunday(3 days ago) when he was moving light furniture. This was substernal, pressure-like burning and was severe. It lasted for about 15 to 20 minutes. He did not seek medical attention at that time. Over the subsequent 2 days he had at least 6-7 more episodes of chest pain. He does not notice radiation. He takes Plavix. No bleeding problems. Of note patient had a stress test done in February 2020 that showed no ischemia and EF was normal on that. His troponin was negative without significant delta. EKG does not show acute ischemic changes. Review of Systems Narrative: CONSTITUTIONAL: No fever chills weight loss or gain or night sweats. [] HEENT: Normocephalic, atraumatic.[] RESPIRATORY: No cough, sputum, hemoptysis or wheezing.[] CARDIOVASCULAR: No shortness of breath, reports chest pain, no PND, orthopnea, lower extremity edema, presyncope or syncope. [] GI: no nausea vomiting diarrhea. [] TRACK EQUIPMENT OPERATOR: No numbness, tingling, weakness or loss of function in any part of the body. [] MUSCULOSKELETAL: No knee or joint pain or rashes. [] Meds/Allergies Home Medications and Allergies Home Medications Medication Instructions Recorded Confirmed Last Taken Type clopidogrel 75 mg tablet 75 mg PO DAILY #90 tab 11/07/19 06/02/20 06/02/20 Rx Metoprolol Tab 25 mg PO DAILY 06/02/20 06/02/20 Unknown History aspirin 81 mg PO DAILY 06/02/20 06/02/20 06/02/20 History ibuprofen 400 - 600 mg PO PRN 06/02/20 06/02/20 Unknown History multivitamin [Multiple Vitamins] 1 tab PO DAILY 06/02/20 06/02/20 Unknown History Allergies Allergy/AdvReac Type Severity Reaction Status Date / Time atorvastatin Allergy NA Verified 06/02/20 23:39 morphine Allergy NA Verified 06/02/20 23:39 nitroglycerin Allergy ADR/ALGY-Hy Verified 06/02/20 23:41 potension simvastatin Allergy NA Verified 06/02/20 23:39 Current Medications Current Medications Generic Name Dose Route Start Last Admin Trade Name Freq PRN Reason Stop Dose Admin Enoxaparin Sodium 40 mg 06/03/20 00:30 06/03/20 00:38 Lovenox SUBCUT 40 mg Q24H ALEJANDRA Administration Sodium Chloride 1,000 mls @ 100 mls/hr 06/02/20 23:24 06/03/20 00:34 Sodium Chloride 0.9% IV 100 mls/hr .Q10H ALEJANDRA Administration PFSH Acute PFSH: Medical History Anxiety Arrhythmia CAD (coronary artery disease) Chronic prostatitis GERD (gastroesophageal reflux disease) Hyperlipidemia Hypertension Urinary calculus, unspecified Surgical History H/O heart artery stent H/O laminectomy H/O shoulder surgery Family History Mother , 62 CAD (coronary artery disease) Social History Smoking and tobacco status: never smoked Alcohol intake: never Adopted: No Caregiver/support person: No Lives independently: No Household members: spouse Marital status: Current occupational status: employed History of recent travel: No Current gender identity: Male Vitals/I&O/Wt Last Vital Signs Temp 98.6 F 06/03/20 04:00 Pulse 85 06/03/20 04:00 Resp 16 06/03/20 04:00 BP 129/72 06/03/20 04:00 Pulse Ox 94 06/03/20 04:00 06/02/20 06/03/20 06/03/20 22:59 06:59 14:59 Intake Total 200 / 200 Balance 200 / 200 Weight last 48 hrs Weight 170 lb Physical Exam Narrative: EXAM NARRATIVE: GENERAL: Patient is alert, awake and oriented x3. [] NECK: No jugular vein distension. [] HEENT: No cyanosis. No icterus. No pallor. [] HEART: Regular S1 and S2. No murmur, rub or gallop. [] LUNGS: Clear to auscultate bilaterally. [] ABDOMEN: Soft, nontender and nondistended. Positive bowel sounds. No guarding, rebound or tenderness. [] CENTRAL NERVOUS SYSTEM: Grossly nonfocal. [] EXTREMITIES: Lower extremities with no edema bilaterally. Pulses palpable in the lower extremities, both dorsalis pedis and posterior tibial. [] A&P Assessment and plan (1) Unstable angina: Status: Acute (2) CAD (coronary artery disease): Status: Acute Qualifiers: Coronary Disease-Associated Artery/Lesion type: [place] artery [place] vs. transplanted heart: [place] heart Associated angina: with stable angina Qualified Code(s): I25.118 - Atherosclerotic heart disease of [place] coronary artery with other forms of angina pectoris (3) Hypertension: Status: Acute Qualifiers: Hypertension type: essential hypertension Qualified Code(s): I10 - Essential (primary) hypertension (4) Hyperlipidemia: Status: Acute Qualifiers: Hyperlipidemia type: mixed hyperlipidemia Qualified Code(s): E78.2 - Mixed hyperlipidemia Patient symptoms are concerning for unstable angina. Given his significant coronary artery disease with PCI's in the past, we will proceed with coronary angiography. I have discussed in detail the risks and benefits of the procedure. Risks including bleeding, infection, abnormal heart rhythm, kidney function worsening, heart attack, stroke or have been described. Patient understands the risks and benefits and wants to proceed with the procedure. Continue aspirin and Plavix. Order echocardiogram. Thank you for involving us with the care of this patient. Please call with questions Coding Level of Care Code Acute Relief Charge Nurse for [facility] Diagnoses Unstable angina I20.0 CAD (coronary artery disease) I25.118 Coronary Disease-Associated Artery/Lesion type: [place] artery [place] vs. transplanted heart: [place] heart Associated angina: with stable angina Hypertension I10 Hypertension type: essential hypertension Hyperlipidemia E78.2 Hyperlipidemia type: mixed hyperlipidemia
--- NOTE | 2020-06-03 08:12 | XACV_ITS ---
Exam Room: [facility] Ht: 173 cm Wt: 77 kg BSA: 1.94 m2 Gender: Male : 1955 Any Known Allergies: Other Exam Priority: Routine Procedure(s): Procedure Description: Diagnostic procedure Procedure Description: Left Heart Catheterization Procedure Description: Coronary angiography Procedure Description: Percutaneous coronary intervention of proximal LAD. Diagnostic Cath Status: Urgent Diagnostic Findings * LM has luminal irregularities. * CX has luminal irregularities. Gives rise to an OM branch which has a prior stent which is patent.. * RCA has a proximal stent which is patent. It has 10 to 20% in-stent restenosis in proximal segment. RCA has diffuse luminal irregularities however no significant stenosis is present.. * Proximal Left Anterior Descending Coronary Artery: Severe 90% stenosis, DENILSON: 3 flow. There is a patent stent in mid LAD. LAD gives rise to the medium sized diagonal branch which is free of significant disease.. * Coronary angiography shows right dominance. PCI Status: Urgent PCI Indication: New Onset Angina <= 2 months Interventional Findings * We engaged left main artery with XB 3.0 guide catheter. A run-through guidewire was used to cross the lesion and was placed in distal LAD. We used a 2.5 x 12 mm semicompliant balloon to predilate the proximal LAD stenosis. This was followed by placement of a 3.0 x 15 mm resolute Aida drug-eluting stent. At this time final angiogram was performed that showed excellent stent expansion, DENILSON-3 flow and no residual stenosis. Guidewire and guide catheter was removed. Radial sheath was removed and TR band was placed. Patient left the Target Developer in a stable condition. * Proximal Left Anterior Descending Coronary Artery: 90% stenosis treated with AB TREK 2.50X12 RX BALLOON and MDT R AIDA 3.0X15 REYMUNDO. 0% residual stenosis, DENILSON: 3 flow. Conclusions 1. There is severe coronary artery disease with one vessel disease. 2. Proximal Left Anterior Descending Coronary Artery was treated with Balloon and Drug Eluting Stent. Recommendations * Continue aspirin and Plavix for at least 1 year. * High intensity statin therapy. * Beta-connor. * Follow-up with cardiology clinic in 4 weeks. Interventional RX Recommendation: PCI w/o planned CABG Diagnostic RX Recommendation: PCI w/o planned CABG Anticoagulation: Heparin Clinical Evaluation EBL: 5mL-10mL Procedural Details Procedure Consent Obtained. Admit Source: Out Patient. Pre-Procedure Time Out. Identified patient by full name and date of as verbalized by the patient/guarantor. Does the consent match the physician's order: Yes. Accurate & Complete Informed Consent: Yes. Inpatient/Outpatient History & Physical on Chart: Yes. If H&P is completed, is and addenduem needed: Yes; If yes, is the addendum complete: Yes. Visualize and Verify Site with Patient/Guarantor: N/A. Relevant Radiology Images available: N/A. Pre-op teaching completed and patient verbalized understanding. The risks, benefits, and alternatives of sedation and/or procedure were discussed by physician. The patient agrees to continue. Procedure started. Correct patient, site and procedure confirmed by cath team. PERRLA. Strong, equal hand continuous improvement manager bilaterally. Lungs clear x 5 lobes. IV Site on Arrival: 20 gauge in the right anticubital. Oxygen started at 2liters/min via nasal canula. bilateral groins was prepped with chloroprep then draped in the usual sterile fashion. right radial was prepped with chloroprep then draped in the usual sterile fashion. Physician notified. Baseline sample Acquired. HR: 77 BPM. Physician arrived. Physician scrubbed in. Immediate Pre-Procedure Time Out. Correct Patient: Yes; Correct Procedure: Yes; Correct Site: Yes; Correct Patient Position: Yes; Correct Supplies: Yes; Dried Flammable Prep: No; Blood Products Available: N/A;. Lidocaine 1% infiltrated to the right radial. Arterial access obtained. A 5 [place] TIG catheter in over wire. Multiple views taken of left coronary artery. Catheter redirected to the RCA. Multiple views taken of right coronary artery. Catheter out. 6 [place] XB 3.5 guide catheter was inserted over the wire. guide out. 6 [place] XB 3 guide catheter was inserted over the wire. ACT drawn. Results 365 seconds. Therapeutic limits - pre-heparin administration 90-150 seconds and monitoring heparin during a vascular procedure >250 seconds. Runthrough guidewire was advanced through the guide catheter to lesion in the mid LAD. Inflation number : 1 A AB TREK 2.50X12 RX BALLOON was prepped and advanced across the Prox LAD , then inflated to 12 MAKAYLA for 0:24 seconds. Balloon out. Inflation Number : 2 A MANDIE Landers AIDA 3.0X15 REYMUNDO -Lot Number# [id number] exp: 02-10-2022 was prepped and advanced across the Prox LAD. The stent was deployed at 14 MAKAYLA for 0:25 seconds. Stent balloon out over wire. checking results. Guide catheter out. Wire out. ACT drawn. Results 225 seconds. Therapeutic limits - pre-heparin administration 90-150 seconds and monitoring heparin during a vascular procedure >250 seconds. TR band placed. Hemostasis obtained. Post Procedure: Pulses reassessed and unchanged. PERRLA. Strong, equal hand continuous improvement manager bilaterally. No VTE prophylaxis required. Medication's Wasted: Lidocaine 1% = 18 mL. Medication's Wasted: Nitro = 49.8 mg. Medication's Wasted: Other = versed 1 mg. Medication's Wasted: Heparin = 1000 units. Total IV fluids: 75 mL. Contrast type used: Omnipaque 300 mgI/mL, 500 mL bottle. Contrast Material : Omnipaque 145 ml. Complications: none. Estimated blood loss: 5mL-10mL. A TR Band was successful obtaining hemostatsis at the Right Radial artery insertion site. [facility] Clinical Fraility Score: 3: Managing Well. Target Developer Indications: unstable angina. Chest Pain Symptom Assessment: Typical Angina Symptoms. Cardiovascular Instability: No,. PCI Indication: UnStable Angina. Post-op diagnosis: severe Prox LAD stenosis. Procedure completed. Patient transferred by wheelchair to 1st floor. Vital chart was stopped. Access Site Site: Right Radial artery Sheath Size: 6 Fr Hemostasis Method: TR Band Hemostasis Success: Successful Procedure Medications Start: 10:02 AM Stop: 10:02 AM Medication: Versed Amount: 1 mg Start: 10:02 AM Stop: 10:02 AM Medication: Fentanyl Amount: 50 mcg Route: I.V. Start: 10:06 AM Stop: 10:06 AM Medication: Versed Amount: 1 mg Route: I.V. Start: 10:06 AM Stop: 10:06 AM Medication: Fentanyl Amount: 50 mcg Route: I.V. Start: 10:09 AM Stop: 10:09 AM Medication: Heparin Amount: 5000 units Route: I.V. Start: 10:21 AM Stop: 10:21 AM Medication: Heparin Amount: 3000 units Route: I.V. Start: 10:23 AM Stop: 10:23 AM Medication: Versed Amount: 1 mg Route: I.V. Start: 10:47 AM Stop: 10:47 AM Medication: Nitrogylcerin Amount: 200 mcg Route: I.A. Start: 10:03 AM Stop: 10:03 AM Medication: Nitrogylcerin Amount: 200 mcg Route: I.A. Start: 10:50 AM Stop: 10:50 AM Medication: Plavix Amount: 300 mg Route: P.O. Start: 10:54 AM Stop: 10:54 AM Medication: Heparin Amount: 2000 units Route: I.V. I, the attending physician, have reviewed and verified all procedure medications. Yes, all medications given per verbal order History/Risk Factors Hypertension: Yes Dyslipidemia: Yes Myocardial Infarction ([place]): Yes Tobacco Use: Never Report Signatures Finalized by Anders Dietrich MD on 06/06/2020 05:38 PM
--- NOTE | 2020-06-03 08:33 | ECG_ITS ---
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: : 1955 Requested By: Anders Dietrich Order Number: [id number] Kiley MD: FOREST BROWN Measurements Intervals [place] Rate: 76 P: 38 PA: 152 QRS: 9 QRSD: 137 T: 3 QT: 399 QTc: 450 Interpretive Statements SINUS RHYTHM RIGHT BUNDLE BRANCH BLOCK [120+ ms QRS DURATION, UPRIGHT V1, 40+ ms S IN I/aVL/V4/V5/V6] Compared to ECG 06/03/2020 03:32:22 Right bundle-branch block now present T-wave abnormality no longer present Electronically Signed On 06-04-2020 19:35:07 BUSINESS ASSISTANT by FOREST BROWN [id number]
[2020-06-03] MEDS: pantoprazole DR 40 mg Tablet PO (08:34)
[2020-06-03] MEDS: diphenhydrAMINE 50 mg Capsule PO (08:34)
[2020-06-03] MEDS: sodium chloride 0.9% 1,000 ML 50 ML IV (08:34)
[2020-06-03] MEDS: multivitamin therapeutic Tablet 1 TAB PO (08:34)
[2020-06-03] MEDS: clopidogrel 75 mg Tablet PO (08:34)
[2020-06-03] MEDS: aspirin 81 mg EC Tablet PO (08:34)
--- NOTE | 2020-06-03 09:59 | W.PM.OPSUD ---
Surgery/Procedure H&P Update DATE OF PROCEDURE: June 03, 2020 DATE H&P PERFORMED: 06/03/20 H&P UPDATE INFORMATION: I have reviewed H&P completed within last 30 days, I have examined patient prior to procedure and No changes to prior documentation PREOP DIAGNOSIS: Unstable angina PRIMARY INDICATION FOR PROCEDURE: Unstable angina PLANNED PROCEDURE: Operation Date: 06/07/20 10:30 Proposed Procedures p Left Cardiac Catheterization 83554 R07.9(Left) - Anders Diertich M.D PATIENT REASSESSED PRIOR TO SEDATION, WITH NO CHANGE NOTED: Yes PHYSICAL EXAM: alert, oriented x 3 and clear to auscultation bilaterally AIRWAY EVAL/ANESTHESIA PLAN: normal airway, see other exam findings, ASA II, Risks, benefits & alternatives of sedation and/or procedure discussed and Patient agrees to continue as planned
--- NOTE | 2020-06-03 11:10 | PC.CHAP ---
Pastoral Care Encounter/Spiritual Assessment Type of Contact [] Declined clearance diver visit [] Patient/Family/Request visit [] Outpatient visit [] Follow-up visit [] Physician referral [] Code/Alert [x] Routine visit [] Staff referral [] Actively dying [] Patient sleeping [] Family support [] [] Out of room [] Palliative care [] [xx] Receiving care in room [] Pre-surgical visit [] Trauma [] Long length of stay [] ICU visit [] Other: Relational/Emotional Strength [] Patient feels connected with others/family/visitors/staff [] Distress [] Loneliness/isolation [] Abandonment Spirituality of Patient [x] Person of Christin [] Attends Yazidism of their Christin [x] Believes in Prayer [] Reads Bible or Zoroastrianism materials [] There are Spiritual issues to be addressed [employer] Safety Program Coordinator Interventions [x] Prayer [x] Active listening [x] Non-anxious presence [x] Spiritual/emotional support [] Crisis/trauma care [x] Spiritual counseling [] Bereavement support [] Provided bereavement packet [] Provided Bible/devotional materials [] Provided toy/stuffed animal, coloring book to patient or family member [] Provided Communion [] Anointing/Jackson [] Salvation [x] Completed spiritual assessment [] Other: Impact on Illness or Injury [] Angry [] Fearful [x] Anxious [] Often cries [] Exhaustion [] Unable to work [] Unable to attend buddhism [] Unable to walk/stand [] Unable to read [] Unable to drive [] Unable to eat/drink [] Unable to sleep [] Unable to be with family [] Patient intubated [] Other: Summary He is doing fine has a good attitude doesn't know he will go home Time spent with patient 10 mins
--- NOTE | 2020-06-03 11:18 | PC.NURSE ---
pt back from cardiac cath lab technologist via wheelchair. transferred to bed. right wrist no hematoma noted, slight displacement above tr band. vitals set up. pt stated that wrist was hurting. will continue to monitor.
--- NOTE | 2020-06-03 11:52 | PC.NURSE ---
dr notified at this time about right fore arm swelling and being hard.
[2020-06-03] MEDS: fentaNYL 50 mcg/mL INJ 2mL 25 MCG IVP ×4 (12:18→14:27)
--- NOTE | 2020-06-03 12:50 | P.EN_ITS ---
Event Note Event Note: I was called by nursing staff an hour post procedure (PCI of proximal LAD) that patient's forearm is swelling and is hard with sensation changes in the hand. I assessed the patient. He has a large hematoma in the forearm. He has significant pain the forearm and hand has started to get numb. He can wiggle the fingers. Pulse ox on the hand is normal. There is concern for compartment syndrome. I have discussed with the orthopedic oncall team but because of concern of arterial injury they donot feel comfortable performing the procedure if needed. I also discussed with Dr Oglesby from [facility], he thinks that he can help with arterial procedure but because need for evacuation of hematoma and possible compartment syndrome, orthopedic team will be best equipped to perform the procedure, however he can assist if needed. We have spoken with the hand surgery team at [facility] team and they are on diversion because hospital is full. I am trying to reach our othropedic team again.
--- NOTE | 2020-06-03 13:33 | PM.TDS ---
Transfer Summary Providers Date of Admission: 06/02/20 22:52 Date of Discharge: 06/03/20 Attending Provider at Admission: Saurabh Cuevas MD Attending Provider at Transfer: Zhane Alexander MD Primary Care Provider: Sony Swift MD Anticipated Date of Transfer: Anticipated date of transfer: 06/03/20 Receiving Facility & Provider: Receiving Provider: [Dr. Pete, orthopedic surgery] Receiving facility: [[facility]] Diagnoses at Discharge Discharge Diagnosis (1) Unstable angina: Status: Acute (2) CAD (coronary artery disease): Status: Acute Qualifiers: Coronary Disease-Associated Artery/Lesion type: [place] artery [place] vs. transplanted heart: northern che[place] heart Associated angina: with stable angina Qualified Code(s): I25.118 - Atherosclerotic heart disease of northern che[place] coronary artery with other forms of angina pectoris (3) Hypertension: Status: Acute Qualifiers: Hypertension type: essential hypertension Qualified Code(s): I10 - Essential (primary) hypertension (4) Hyperlipidemia: Status: Acute Qualifiers: Hyperlipidemia type: mixed hyperlipidemia Qualified Code(s): E78.2 - Mixed hyperlipidemia (5) Compartment syndrome of right hand: Status: Acute Reason for Visit Reason for Visit: cp Hospital Course Discharge Summary: Tom Peguero is a 64 year old male who sees Dr. Blakely in the office with past medical history of coronary artery disease status post PCI of LAD and OM in 2017, hypertension and hyperlipidemia presented to the hospital with chest pain. According to patient he had first episode of chest pain on Sunday(3 days ago) when he was moving light furniture. This was substernal, pressure-like burning and was severe. It lasted for about 15 to 20 minutes. Over the subsequent 2 days he had at least 6-7 more episodes of chest pain. He does not notice radiation. He takes Plavix. No bleeding problems. Of note, patient had a stress test done in February 2020 that showed no ischemia and EF was normal on that. Due to symptoms concerning for unstable angina, he was taken for an angiogram this morning and underwent PCI of proximal LAD for 90% stenosis via radial approach. He was loaded with 300mg Plavix and ASA prior to procedure. previously placed RCA stent and distal LAD stent was patent. Approximately an hour after the procedure patient's forearm started to swell, was noted to be hard, he has been unable to move his fingers and currently has loss of sensation in the right hand. Overall concern for acute compartment syndrome. Per discussion with basketball referee Dr. Dietrich, patient would need to be transferred urgently at this time under specialty care of hand surgery for compartment syndrome, evacuation of hematoma and possible vascular repair. They have discussed the case with hand surgeon Dr. Pete at [facility] in [place] and patient will be transferred there urgently. Physical Exam Narrative: EXAM NARRATIVE: GENERAL: Awake, alert, oriented, in pain at this time HEENT: Normocephalic, atraumatic, PERRLA. [] CHEST: Clear to auscultation bilaterally. [] CVS: S1, S2 normal. No murmur, rubs, gallops. Peripheral pulses palpable. [] ABDOMEN: Soft, nontender. Nondistended. Bowel sounds heard. [] NEUROVASCULAR: Awake, alert. Power 5/5 all extremities. Unable to feel sensation over right hand, minimal finger movement EXTREMITIES: Edema over right forearm, pressure bandage in place [] TS Data Data Completed and Pending: Completed Studies During Hospitalization Category Date Time Status CT angio chest PE protcl [id number] Stat Cat Scan 06/02/20 21:45 Completed XR chest 1V susan ble [id number] Stat Exams 06/02/20 20:05 Completed Pending at discharge Category Date Time Status MARKET DEVELOPMENT DIRECTOR request for service Routin e Exams 06/03/20 08:12 Ordered D Dimer Stat Lab 06/02/20 20:35 Results Magnesium AM LABS Lab 06/04/20 04:00 Ordered Magnesium AM LABS Lab 06/05/20 04:00 Ordered Phosphorus AM LAB S Lab 06/04/20 04:00 Ordered Phosphorus AM LAB S Lab 06/05/20 04:00 Ordered Prothrombin Time INR Stat Lab 06/02/20 20:35 Results Labs from last 24 hours 06/03/20 06/03/20 06/03/20 01:56 01:56 01:56 WBC RBC Hgb Hct MCV MCH MCHC RDW Plt Count MPV Neut % (Auto) Lymph % (Auto) [place] % (Auto) Eos % (Auto) Baso % (Auto) Neut # (Auto) Lymph # (Auto) [place] # (Auto) Eos # (Auto) Baso # (Auto) Nucleated RBC % (a uto) Nucleated RBCs # PT INR D-Dimer Sodium Potassium Chloride Carbon Dioxide Anion Gap BUN Creatinine GFR Calculation Glucose Estimat Average Gl ucose 111 Hemoglobin A1c 5.5 Calculated Osmolal ity Calcium Phosphorus 3.6 Magnesium 2.3 Total Bilirubin AST ALT Alkaline Phosphata se Troponin T Baselin e Troponin T 120 Min fabian Delta Troponin T Troponin T Hi Sens 6Hr Troponin T Hi Sens 6Hr Delta Total Protein Albumin Globulin Triglycerides 151 H Cholesterol 195 LDL Cholesterol, C alc 135 H HDL Cholesterol 30 L LDL/HDL Ratio 4.50 H Cholesterol/HDL Ra kem 6.50 H TSH 4.42 H 06/03/20 06/03/20 06/03/20 01:56 01:56 01:56 WBC 6.1 RBC 5.02 Hgb 14.7 Hct 44.8 MCV 89.2 MCH 29.3 MCHC 32.8 RDW 13.4 Plt Count 139 MPV 9.3 Neut % (Auto) 61.3 Lymph % (Auto) 27.6 [place] % (Auto) 8.2 Eos % (Auto) 2.1 Baso % (Auto) 0.5 Neut # (Auto) 3.73 Lymph # (Auto) 1.7 [place] # (Auto) 0.5 Eos # (Auto) 0.1 Baso # (Auto) 0.0 Nucleated RBC % (a uto) 0 Nucleated RBCs # 0.0 PT INR D-Dimer Sodium 139 Potassium 3.7 Chloride 104 Carbon Dioxide 26 Anion Gap 12.7 BUN 18 Creatinine 1.0 GFR Calculation 75.7 L Glucose 94 Estimat Average Gl ucose Hemoglobin A1c Calculated Osmolal ity 290 Calcium 9.1 Phosphorus Magnesium Total Bilirubin 1.2 AST 18 ALT 23 Alkaline Phosphata se 79 Troponin T Baselin e Troponin T 120 Min fabian Delta Troponin T Troponin T Hi Sens 6Hr 8.13 Troponin T Hi Sens 6Hr Delta 2.13 Total Protein 6.5 L Albumin 4.3 Globulin 2.2 Triglycerides Cholesterol LDL Cholesterol, C alc HDL Cholesterol LDL/HDL Ratio Cholesterol/HDL Ra kem TSH 06/02/20 06/02/20 06/02/20 22:00 20:35 20:35 WBC RBC Hgb Hct MCV MCH MCHC RDW Plt Count MPV Neut % (Auto) Lymph % (Auto) [place] % (Auto) Eos % (Auto) Baso % (Auto) Neut # (Auto) Lymph # (Auto) [place] # (Auto) Eos # (Auto) Baso # (Auto) Nucleated RBC % (a uto) Nucleated RBCs # PT INR D-Dimer Sodium 139 Potassium 3.5 Chloride 104 Carbon Dioxide 25 Anion Gap 13.5 BUN 20 Creatinine 0.9 GFR Calculation 85.5 L Glucose 152 H Estimat Average Gl ucose Hemoglobin A1c Calculated Osmolal ity 294 Calcium 9.6 Phosphorus Magnesium Total Bilirubin 1.4 H AST 21 ALT 26 Alkaline Phosphata se 87 Troponin T Baselin e 6 Troponin T 120 Min fabian 6.61 Delta Troponin T 0.61 Troponin T Hi Sens 6Hr Troponin T Hi Sens 6Hr Delta Total Protein 6.8 Albumin 4.6 Globulin 2.2 Triglycerides Cholesterol LDL Cholesterol, C alc HDL Cholesterol LDL/HDL Ratio Cholesterol/HDL Ra kem TSH 06/02/20 06/02/20 20:35 20:35 WBC 5.5 RBC 5.21 Hgb 15.3 Hct 46.0 MCV 88.3 MCH 29.4 MCHC 33.3 RDW 13.5 Plt Count 140 MPV 9.2 Neut % (Auto) 66.9 Lymph % (Auto) 23.0 [place] % (Auto) 7.3 Eos % (Auto) 2.0 Baso % (Auto) 0.4 Neut # (Auto) 3.67 Lymph # (Auto) 1.3 [place] # (Auto) 0.4 Eos # (Auto) 0.1 Baso # (Auto) 0.0 Nucleated RBC % (a uto) 0 Nucleated RBCs # 0.0 PT 13.10 INR 0.96 D-Dimer Pending Sodium Potassium Chloride Carbon Dioxide Anion Gap BUN Creatinine GFR Calculation Glucose Estimat Average Gl ucose Hemoglobin A1c Calculated Osmolal ity Calcium Phosphorus Magnesium Total Bilirubin AST ALT Alkaline Phosphata se Troponin T Baselin e Troponin T 120 Min fabian Delta Troponin T Troponin T Hi Sens 6Hr Troponin T Hi Sens 6Hr Delta Total Protein Albumin Globulin Triglycerides Cholesterol LDL Cholesterol, C alc HDL Cholesterol LDL/HDL Ratio Cholesterol/HDL Ra kem TSH Vitals: Last Vital Signs Temp 97.7 F 06/03/20 11:06 Pulse 81 06/03/20 11:06 Resp 11 L 06/03/20 13:12 BP 120/76 06/03/20 11:06 Pulse Ox 96 06/03/20 12:18 TS Medications Medications Home Medications clopidogrel 75 mg tablet 75 mg PO DAILY #90 tab 11/07/19 [Rx Confirmed 06/02/20] aspirin 81 mg PO DAILY 06/02/20 [History Confirmed 06/02/20] ibuprofen 400 - 600 mg PO PRN 06/02/20 [History Confirmed 06/02/20] multivitamin [Multiple Vitamins] 1 tab PO DAILY 06/02/20 [History Confirmed 06/02/20] isosorbide mononitrate 30 mg PO DAILY 06/03/20 [History Confirmed 06/03/20] lisinopril 10 mg PO BID 06/03/20 [History Confirmed 06/03/20] Active Medications Acetaminophen (Tylenol) 650 mg PO Q6H PRN PRN Reason: Mild/Mod Pain Or Temp >/= 101 Al Hydrox/Mg Hydrox/Simethicone (Maalox) 30 ml PO Q15M PRN PRN Reason: INDIGESTION Alprazolam (Xanax) 0.25 mg PO TID PRN PRN Reason: ANXIETY Aspirin (Aspirin Ec) 81 mg PO DAILY [facility] Last Admin: 06/03/20 08:34 Dose: 81 mg Documented by: Atorvastatin Calcium (Lipitor) 40 mg PO BEDTIME [facility] Atropine Sulfate (Atropine) 0.5 mg IVP PRN PRN PRN Reason: Symptomatic bradycardia Clopidogrel Bisulfate (Plavix) 75 mg PO DAILY [facility] Last Admin: 06/03/20 08:34 Dose: 75 mg Documented by: Enoxaparin Sodium (Lovenox) 40 mg SUBCUT Q24H [facility] Last Admin: 06/03/20 00:38 Dose: 40 mg Documented by: Fentanyl (Sublimaze) 50 mcg IVP PRN PRN PRN Reason: Prior to sheath removal Fentanyl (Sublimaze) 25 mcg IVP Q2H PRN PRN Reason: SEVERE PAIN Last Admin: 06/03/20 13:12 Dose: 25 mcg Documented by: Sodium Chloride (Sodium Chloride 0.9%) 1,000 mls @ 100 mls/hr IV .Q10H [facility] Last Infusion: 06/03/20 08:35 Dose: 0 mls/hr Documented by: Sodium Chloride (Sodium Chloride 0.9%) 1,000 mls @ 50 mls/hr IV .Q20H ONE Stop: 06/04/20 03:56 Last Admin: 06/03/20 08:34 Dose: 50 mls/hr Documented by: Lisinopril (Prinivil) 10 mg PO BID [facility] Magnesium Hydroxide (Milk Of Magnesia) 30 ml PO DAILY PRN PRN Reason: CONSTIPATION Morphine Sulfate (Morphine) 2 mg IVP Q4H PRN PRN Reason: SEVERE PAIN Multivitamins Therapeutic (Multivitamin Tab) 1 tab PO DAILY [facility] Last Admin: 06/03/20 08:34 Dose: 1 tab Documented by: Naloxone HCl (Narcan) 0.1 mg IVP Q2M PRN PRN Reason: RESPIRATORY RATE < 8/MIN Nitroglycerin (Nitrostat) 0.4 mg SUBLINGUAL Q5M PRN PRN Reason: CHEST PAIN Ondansetron HCl (Zofran) 4 mg IVP Q6H PRN PRN Reason: NAUSEA AND VOMITING Pantoprazole Sodium (Protonix) 40 mg PO DAILY [facility] Last Admin: 06/03/20 08:34 Dose: 40 mg Documented by: Temazepam (Restoril) 15 mg PO BEDTIME PRN PRN Reason: INSOMNIA Discharge Plan Discharge Patient Disposition: Xfer Other Condition: Stable Prescriptions: No Action clopidogrel [Plavix] 75 mg tablet 75 mg PO DAILY Qty: 90 RF: 3 Multiple Vitamins Tablet 1 tab PO DAILY RF: 0 aspirin 81 mg Tablet,Delayed Release (Dr/Ec) 81 mg PO DAILY RF: 0 ibuprofen 200 mg Tablet 400 - 600 mg PO PRN RF: 0 lisinopril 10 mg Tablet 10 mg PO BID RF: 0 isosorbide mononitrate 30 mg Tablet Extended Release 24 Hr 30 mg PO DAILY RF: 0 Referrals: Sony Swift MD [Primary Care Provider] - Patient Instructions: Left Heart Catheterization (DC) Transfer Attestations Time Spent in Transfer Care*: greater than 30 min Status at Transfer: Cognitive status at transfer: cognitively intact, Behavioral status at transfer: cooperative, Overall status at transfer: patient is not back to baseline Quality Metrics Clinical Quality Measures: During this hospital stay, did patient experience: None Coding Level of Care Code Acute Fagoter for g Fwd Diagnoses Unstable angina I20.0 CAD (coronary artery disease) I25.118 Coronary Disease-Associated Artery/Lesion type: [place] artery [place] vs. transplanted heart: [place] heart Associated angina: with stable angina Hypertension I10 Hypertension type: essential hypertension Hyperlipidemia E78.2 Hyperlipidemia type: mixed hyperlipidemia Compartment syndrome of right hand T79.A11A
--- NOTE | 2020-06-03 13:42 | PC.NURSE ---
pt belongings r in a bag wallet is in one of his shoes witch is in the bag
[2020-06-03] MEDS: ondansetron 2 mg/ML SDV 2 mL 4 MG IVP (14:11)
[2020-06-03 14:42] LABS: Glucose Point of Care 108 mg/dL (70-110)
[2020-06-03 14:46] LABS: SARS Covid-2 Antigen Negative (Negative)
--- NOTE | 2020-06-03 15:00 | PC.NURSE ---
DISCHARGE QUESTIONS ANSWERED NO DUE TO PT BEING TRANSFERRED TO ANOTHER FACILITY.
[2020-06-03 15:09] LABS: D Dimer 0.39 ug/mIFEU (0-0.59)
--- NOTE | 2020-06-03 15:14 | PC.NURSE ---
this nurse called to bedside to look at patient IV. Patient reports pain to right forearm. Right forearm is hard to palpitation. Radial pulse palpable 2+. Right forearm measures 31 cm, left 28 cm. Patient reports tingling to thumb and first digit of right hand. Dr. Dietrich called to bedside by this nurse at 1152. Karlo reported to bedside. Placed SAPNA wrap to right forearm, leave TR band at this time. Radial pulse palpable. Patient fist is contracted unable to move fingers at this time 1200. Verbal order received to administer 25 mcg fentanyl one time, IVP. RBVO. Verbal order to continue monitoring neurovascular status closely, notify provider for loss of pulse or worsening of symptoms. Pain uncontrolled, additional doses of fentanyl administered per order from Dr. Dietrich, see MAR. Dr. Dietrich to consult traffic control specialist for possible fasciotomy, keep patient NPO at this time. RBVO. Lunch tray removed from room untouched. Dr. Pete at [facility] [place] accepted patient, waiting for bed assignment. Family notified. Dr. Dietrich notified by telephone at 1354 that patient had become diaphoretic and pale. BP 90s systolic, bradycardic HR 40s-50s. Radial pulse no longer dopplerable. Physician reported to bedside, SAPNA wrap and TR band removed by physician. Physician could then doppler radial pulse. 1417 Patient nauseas, telephone order received from Dr. Dietrich for TONI barcenas, see MAR. Hot Cell Technician at [facility] [place] notified nurse, rapid covid has to be performed prior to transportation. Swab obtained at 1419. Nurse to call Clerk [employer] with results. Patient loaded in air evac along with personal belongings at 1500. Stable at this time. Report called to nurse at [facility] [place].
== END 2020-06-03 15:00 | disposition other institution (70) ==
LOC: ER 22:59 → CSU 23:03
PROVIDERS: Emergency Medicine; Internal Medicine; Admitting Provider Family Medicine; Emergency Provider Emergency Medicine; PCP Family Medicine; Visit Provider Student in an Organized Health Care Education/Training Program
DX: I25.118 Atherosclerotic heart disease of native coronary artery with other forms of angina pectoris (principal); I10 Essential (primary) hypertension; E78.2 Mixed hyperlipidemia; K21.9 Gastro-esophageal reflux disease without esophagitis; T79.A11A Traumatic compartment syndrome of right upper extremity, initial encounter; Z79.82 Long term (current) use of aspirin; F41.9 Anxiety disorder, unspecified; Z95.5 Presence of coronary angioplasty implant and graft
CPT/HCPCS: 12345; 36415; 36416; 71045; 71275; 80053; 80061; 82962; 83036; 83735; 84100; 84443; 84484; 85025; 85347; 85378; 85610; 87426; 93005; 93454; 96360; 96361; 96372; 96374; 96375; 99283; 99285; C1725; C1769; C1874; C1887; C1894; C9600; G0378; J1170; J1644; J1650; J2250; J2405; J3010; J3490; J7030; Q0163; Q9967

== ENCOUNTER → 2020-06-11 11:44 | Outpatient (BNVA) | payer OTHER, SELFPAY | PROVIDERS: PCP Family Medicine; Visit Provider Internal Medicine Cardiovascular Disease | DX: I25.118 Atherosclerotic heart disease of native coronary artery with other forms of angina pectoris (principal) | CPT/HCPCS: 80048 ==

== ENCOUNTER → 2020-09-23 08:04 | Outpatient (BNVA) | payer MEDICARE, SELFPAY | PROVIDERS: PCP Family Medicine; Visit Provider Urology | DX: N41.1 Chronic prostatitis (principal) | CPT/HCPCS: 81003 ==

== ENCOUNTER 2020-11-17 08:01 | Outpatient (CLI) | payer MEDICARE, SELFPAY ==
--- NOTE | 2020-11-17 08:19 | FL_ITS ---
WS: [id number] ESOPHAGRAM WITH FLUOROSCOPY HISTORY: OTHER MUSCLE SPASM, PAIN IN THROAT COMPARISON: 08/08/2017 FLUOROSCOPY TIME: 2.3 minutes. Esophagus and swallowing function: Patient swallowed the barium mixture without difficulty. No strict ures or mucosal abnormalities are identified. Mild intermittent cricopharyngeal spasm noted. Osteophy salvador from C6-7 encroachment upon the posterior cervical esophagus but did not appear to be causing any significant delay in swallowing. Mild distal esophageal narrowing. Barium tablet was mildly delayed at the GE junction for several minutes. There is mild distal esophageal narrowing which is new since 2018. Gastroesophageal reflux: None. Hiatal hernia: Small reducible hiatal hernia. FL/FL barium swallow [id number] IMPRESSION: 1. Very mild cricopharyngeal spasm. 2. Small cervical osteophytes at C6-7 causing mild encroachment upon the poste rior cervical esophagus. 3. Mild narrowing of the distal esophagus. Mild esophageal stricture is new si nce 2018 and did cause a slight delay of the barium tablet emptying into the st omach.
== END 2020-11-17 08:02 | disposition home or self-care (01) ==
PROVIDERS: PCP Family Medicine; Visit Provider Otolaryngology
DX: M62.838 Other muscle spasm (principal); R07.0 Pain in throat; M25.78 Osteophyte, vertebrae
CPT/HCPCS: 74220

== ENCOUNTER 2021-03-25 10:43 | Outpatient (CLI) | payer OTHER, SELFPAY ==
--- NOTE | 2021-03-25 10:45 | XR_ITS ---
WS: [id number] Exam: XR KUB [id number] Date/Time of Exam: 03/25/2021 10:45 AM Reason For Exam: stones No bowel obstruction or free air. No calcifications noted in the region of the kidneys. A soft tissue mass superimposes the lateral left kidney and apparently represents a known large left renal cyst. O rgan margins are otherwise normal in appearance. Nonspecific pelvic calcifications. Regional bony str uctures are intact. XR/XR KUB [id number] IMPRESSION: 1. No calcifications noted in the region of the kidneys. 2. Prominent soft tissue mass superimposes the left renal silhouette and appare ntly represents a known large left renal cyst.
== END 2021-03-25 10:44 | disposition home or self-care (01) ==
LOC: RAD 10:47
PROVIDERS: PCP Family Medicine; Visit Provider Urology
DX: N20.9 Urinary calculus, unspecified (principal)
CPT/HCPCS: 74018; 81003

== ENCOUNTER 2021-03-29 20:52 | Emergency (ER) | payer OTHER, SELFPAY ==
[2021-03-29 21:00] VITALS: BP 121/77; PULSE 82; RESP 18; TEMP 36.7; O2SAT 99; BMI 24.3
--- NOTE | 2021-03-29 21:16 | ED_ITS ---
HPI - Animal Bite General: Chief Complaint: Animal Bite Stated Complaint: Multi Dog Bites Time Seen by Provider: 03/29/21 21:08 History of Present Illness: HPI narrative: Mr. Peguero is a 65-year-old gentleman without pertinent past medical history presents to the emergency department due to dog bite. He was reportedly walking when he had 2 unknown dogs attacked him. He was bit on the right buttock and left calf. He immediately had pain and the dog's ran off. They did not appear to have collars and he does not know where they went. Law enforcement is currently searching for them. He is up-to-date on his tetanus. He currently has moderate intensity pain at the bite sites. He otherwise denies significant changes in health. Pain is worse with palpation but does not go with rest. As he came right to the emergency department there are no other specific exacerbating, provoking, alleviating factors that he identifies. Review of Systems General: Reports: 10 or more systems reviewed and unremarkable except in HPI and below Narrative: CONSTITUTIONAL: denies fever, fatigue, weakness EYES - denies pain, denies loss of vision NOSE - denies congestion or rhinorrhea. THROAT - denies sore throat or di fficulty swallowing. CARDIOVASCULAR - denies chest pain and palpitations RESPIRATORY - denies shortness of breath and cough GASTROINTESTINAL - denies abdominal pain, no nausea vomiting, no changes in bowel habits GENITOURINARY - denies dysuria or urinary frequency MUSCULOSKELETAL-see HPI SKIN - denies rashes. See HPI NEUROLOGIC - denies focal weakness or sensory changes HEMATOLOGIC/LYMPHATIC - denies easy bruising or lymphadenopathy. [facility] ED PFSH: Medical History Anxiety Arrhythmia Atherosclerotic heart disease of [place] coronary artery with other forms of angina pectoris EKG from 07/05/2020 EKG revealed bradycardia with a rate of [address]-T change Atherosclerotic heart disease of [place] coronary artery with unstable angina pectoris Atypical chest pain CAD (coronary artery disease) Chronic prostatitis GERD (gastroesophageal reflux disease) Hyperlipidemia Hypertension Urinary calculus, unspecified Surgical History H/O heart artery stent H/O laminectomy H/O shoulder surgery Family History Mother , 62 CAD (coronary artery disease) Social History Smoking and tobacco status: never smoked Alcohol intake: never Adopted: No Caregiver/support person: No Lives independently: No Household members: spouse Marital status: Current occupational status: retired History of recent travel: No Current gender identity: Male Physical Exam Narrative: EXAM NARRATIVE: GENERAL/CONSTITUTIONAL - well-appearing. No acute distress. Discomfort due to pain Eyes - PERRL, no conjunctival injection ENMT - Atraumatic external nose and ears. Moist mucous membranes NECK - supple. trachea midline CARDIOVASCULAR - regular rate and rhythm. Peripheral pulses 2+ and equal RESPIRATORY -clear to auscultation bilaterally. No retractions or accessory muscle use. ABDOMEN/GI - Nontender/Nondistended. No tenderness to percussion or evidence of peritonitis MSK?see images SKIN - Warm, Dry NEURO - alert and appropriately oriented. strength and sensation intact. Moves all extremities equally. PSYCH - Appropriate mood and affect Back/Pelvis: BACK IMAGE (MALE): 1. 2 linear lacerations with mild puncture component Extremity: EXTREMITY IMAGE (BACK): 1. Area of skin abrasion and laceration without definite deep puncture Course ED course: - Patient was seen and evaluated by me at bedside -Vital signs obtained. Wounds clean - Initial evaluation notable for 2 bite sites as noted - Imaging notable for no retained radiopaque foreign body or underlying bony abnormality -Discussed risks and benefits of rabies vaccine. Patient wishes to proceed with vaccine and immunoglobulin - Upon serial reexamination after treatment the patient was improved - Based on patient history, evaluation, labs, and imaging as interpreted the most likely cause of the patient's condition is dog bite - The results of ED evaluation were discussed with the patient including prescriptions and/or symptomatic cares (if applicable) including appropriate and responsible use, followup plan, and return precautions. The patient verbalized understanding and felt safe for discharge. - Patient discharged in satisfactory condition. Vital Signs: Vital signs: Vital Signs Temperature 98.1 F 03/29/21 21:00 Pulse Rate 82 03/29/21 21:00 Respiratory Rate 18 03/29/21 21:00 Blood Pressure 121/77 03/29/21 21:00 Pulse Oximetry 99 03/29/21 21:00 MDM - Animal Bite Medical Records: Attestation: I reviewed the patient's medical records. Lab Data: Attestation: I reviewed the patient's lab results. Discharge Plan Discharge Patient Disposition: Home Clinical Impression: Dog bite of calf, Dog bite of buttock Condition: Stable Prescriptions: New Augmentin 875-125 mg tablet 1 tab PO BID Qty: 20 RF: 0 No Action metoprolol succinate 25 mg tablet extended release 24 hr 25 mg PO DAILY RF: 0 clopidogrel [Plavix] 75 mg tablet 75 mg PO DAILY Qty: 90 RF: 3 nitroglycerin 0.4 mg tablet, sublingual 0.4 mg sublingual Q5M PRN (Reason: chest pain) 30 Days Qty: 30 RF: 3 Multiple Vitamins Tablet 1 tab PO DAILY RF: 0 Discharge Orders: Discharge ED (Routine); Ordered 03/29/21 Ordered By: Nino Paz Referrals: Sony Swift MD [Primary Care Provider] - Discharge Diet: Usual diet Discharge Activity: Resume usual activity Patient Instructions: Rabies Vaccine (Injection), Rabies Immune Globulin (Injection), Animal Bite (ED) Activity Restrictions/Additional Instructions: Thank you for visiting the emergency department. You were seen and evaluated for dog bites. These were cleaned at bedside. You will be given a prescription for antibiotics. Day of exposure is considered day 0. You need to return to the ED for repeat vaccines on day 3, 7, and 14. Please return to the emergency department for signs of infection, uncontrolled pain, or anything else that you are concerned about and feel needs emergency department evaluation. Coding Level of Care Code ED Radio Engineer for Levi Daniel
--- NOTE | 2021-03-29 21:27 | XRR_ITS ---
PROCEDURE INFORMATION: Exam: XR Left Tibia and Fibula Exam date and time: 03/29/2021 9:27 PM Age: 65 years old Clinical indication: Injury or trauma; Other: Dog bite to left calf; Puncture; Lower leg; Foreign body involvement not specified; Additional info: Dog bite, ? foreign body TECHNIQUE: Imaging protocol: XR Left tibia and fibula. Views: 2 views. COMPARISON: No relevant prior studies available. FINDINGS: Bones/joints: Normal. Soft tissues: Normal. XR/XR tibia fibula LT 2V [id number] IMPRESSION: No acute findings.
--- NOTE | 2021-03-29 21:27 | XRR_ITS ---
PROCEDURE INFORMATION: Exam: XR Pelvis Exam date and time: 03/29/2021 9:27 PM Age: 65 years old Clinical indication: Injury or trauma; Other: Dog bite to right buttock; Blunt trauma (contusions or hematomas); Pelvic region; Additional info: Ap and lateral, dog bite R buttock, ? foreign body TECHNIQUE: Imaging protocol: XR pelvis. Views: 1 or 2 view. COMPARISON: CT abdomen pelvis w con* [id number] 02/05/2017 10:07 AM FINDINGS: Bones/joints: Unremarkable. No acute fracture. Soft tissues: Unremarkable. No opaque foreign body is identified XR/XR pelvis 1-2V* [id number] IMPRESSION: No acute findings.
[2021-03-29] MEDS: rabies vaccine 2.5 unit SDV IM (23:27)
[2021-03-29] MEDS: amoxicillin-clav 875-125 mg Tablet 1 TAB PO (23:27)
[2021-03-29] MEDS: rabies IG 300 unit/mL SDV 1 mL 725.75 UNIT INFILTRATI (23:37)
== END 2021-03-30 00:01 | disposition home or self-care (01) ==
PROVIDERS: Emergency Provider Emergency Medicine; PCP Family Medicine
DX: S31.815A Open bite of right buttock, initial encounter (principal); S81.852A Open bite, left lower leg, initial encounter; W54.0XXA Bitten by dog, initial encounter; Z79.02 Long term (current) use of antithrombotics/antiplatelets; I25.10 Atherosclerotic heart disease of native coronary artery without angina pectoris; E78.5 Hyperlipidemia, unspecified; I10 Essential (primary) hypertension; Z23 Encounter for immunization; Z29.14 Encounter for prophylactic rabies immune globulin; Z20.3 Contact with and (suspected) exposure to rabies
CPT/HCPCS: 72170; 73590; 90375; 90471; 90675; 96372; 99283

== ENCOUNTER 2021-04-15 02:19 | Emergency (ER) | payer OTHER, SELFPAY ==
[2021-04-15 02:25] VITALS: BP 162/97; PULSE 79; RESP 16; TEMP 36.3; O2SAT 98; BMI 25.0
--- NOTE | 2021-04-15 02:34 | USCV_ITS ---
Tom Peguero Age: 65 Gender: M : 1955 Exam Date: 04/15/2021 03:16 Ordering Phys: Jessica Morrison MD Technologist: Exam Location: [facility] [place]_ Indication: LT LEG PAIN BEHIND THE KNEE HISTORY: Lower extremity pain. PROCEDURES: Venous duplex imaging was performed in only the left lower extremity. The following venous structures were evaluated: common femoral vein, profunda vein, proximal portion of the greater saphenous vein, superficial femoral vein, and the popliteal vein. In addition, the posterior tibial and peroneal trunk were evaluated. FINDINGS: Normal 2-D Doppler and augmentation and compressibility throughout the lower extremity venous structures. Additional imaging through the proximal calf veins also reveals no thrombus. Limited evaluation of the greater saphenous vein is patent with no thrombus. Complex ovoid mass measuring 3.4 X 1.4 in the left popliteal fossa. CONCLUSIONS No DVT left lower extremity. Left popliteal fossa Cleveland's cyst. Dr. Darya Horta DO (Electronically Signed) Final Date: 15 April 2021 08:03 S
--- NOTE | 2021-04-15 02:36 | ED_ITS ---
HPI - Extremity Problem General: Chief complaint: Extremity Problem,Nontraumatic Stated complaint: L Knot on back of Knee- Painfull Time Seen by Provider: 04/15/21 02:23 Source: patient Mode of arrival: ambulatory Limitations: no limitations History of Present Illness: HPI Narrative: -year-old male states he has been having pain in his left lower leg over the last week. He states that he started having some increased pain behind the back of his knee to the popliteal region states that tonight he noticed a lump back there. He is concerned of a possible DVT. He denies any chest pain or shortness of breath. He states that he did have an injury from a dog bite 2 weeks ago to the left lower leg. Associated symptoms: Deny chest pain, fever(s) or rash Review of Systems Const: Denies: fever(s), chills, body aches or change in appetite Eyes: Denies: blurry vision or eye discomfort ENMT: Denies: throat pain or dental pain Card: Denies: chest pain Resp: Denies: dyspnea GI: Denies: abdominal pain, nausea, vomiting or diarrhea : Denies: dysuria Musc: Reports: extremity pain Skin/Breast: Denies: rash Neuro: Denies: headache(s) Psych: Denies: depression Guilherme/Lymph: Denies: easy bruising All/Imm: Denies: urticaria PFSH ED PFSH: Medical History Anxiety Arrhythmia Atherosclerotic heart disease of [place] coronary artery with other forms of angina pectoris EKG from 07/05/2020 EKG revealed bradycardia with a rate of [address]. [address]-T change Atherosclerotic heart disease of [place] coronary artery with unstable angina pectoris Atypical chest pain CAD (coronary artery disease) Chronic prostatitis GERD (gastroesophageal reflux disease) Hyperlipidemia Hypertension Urinary calculus, unspecified Surgical History H/O heart artery stent H/O laminectomy H/O shoulder surgery Family History Mother , 62 CAD (coronary artery disease) Social History Alcohol intake: never Adopted: No Caregiver/support person: No Lives independently: No Household members: spouse Marital status: Current occupational status: retired History of recent travel: No Current gender identity: Male Physical Exam Const: COMMON NORMALS: no acute distress, patient oriented x3 and healthy appearing HENMT: COMMON NORMALS: normocephalic and atraumatic HEAD & SCALP: normocephalic and atraumatic Eye: COMMON NORMALS: Equal, round and reactive pupils present and EOMs intact bilaterally PUPIL: Yes Equal, round and reactive pupils present Neck/C-Spine: COMMON NORMALS: full ROM and supple Chest: COMMONS NORMALS: normal inspection of the chest and normal palpation of entire chest wall Resp: COMMON NORMALS: normal respiratory effort, No retractions, No use of accessory muscles and clear to auscultation bilaterally AUSCULTATION: clear to auscultation bilaterally Cardio: COMMON NORMALS: regular rate, regular rhythm and No murmurs present (Cardio) RATE: regular rate RHYTHM: regular rhythm GI: COMMON NORMALS: Normal to inspection, nondistended, normoactive bowel sounds present, Soft to palpation, non-tender and no masses PALPATION: Yes Soft to palpation Extremity: COMMON NORMALS: normal to inspection and full ROM NARRATIVE EXTREMITY EXAM: Healing dog bite to left lower calf tenderness to posterior knee. Neuro: COMMON NORMALS: patient oriented x3, moves all extremities and no focal motor deficits Psych: COMMON NORMALS: mental status grossly normal, Normal thought process present and cooperative THOUGHT PROCESS: Normal thought process present Skin: COMMON NORMALS: no rashes or lesions noted and no wounds GENERAL SKIN EXAM: no rashes or lesions noted Course Vital Signs: Vital signs: Vital Signs Temperature 97.3 F L 04/15/21 02:25 Pulse Rate 79 04/15/21 02:25 Respiratory Rate 16 04/15/21 02:25 Blood Pressure 162/97 04/15/21 02:25 Pulse Oximetry 98 04/15/21 02:25 MDM - Extremity (Nontraumatic) MDM Narrative: Medical decision making narrative: Presents with a Cleveland's cyst. Ultrasound was otherwise negative. He is well-appearing here and stable for discharge. He is to follow-up with PCP and return if worsening. Imaging Data^: US Vascular: Attestation: I personally reviewed and interpreted this imaging study as follows: Radiologist's impression: bakers cyst Discharge Plan Discharge Patient Disposition: Home Clinical Impression: Cleveland's cyst of knee Qualifiers: Laterality: left Qualified Code(s): M71.22 - Synovial cyst of popliteal space [Cleveland], left knee Condition: Stable Prescriptions: No Action metoprolol succinate 25 mg tablet extended release 24 hr 25 mg PO DAILY RF: 0 clopidogrel [Plavix] 75 mg tablet 75 mg PO DAILY Qty: 90 RF: 3 nitroglycerin 0.4 mg tablet, sublingual 0.4 mg sublingual Q5M PRN (Reason: chest pain) 30 Days Qty: 30 RF: 3 Multiple Vitamins Tablet 1 tab PO DAILY RF: 0 Discharge Orders: Discharge ED (Routine); Ordered 04/15/21 Ordered By: Jessica Morrison Referrals: Sony Swift MD [Primary Care Provider] - 1-3 days Discharge Diet: Advance as tolerated Discharge Activity: Resume usual activity Patient Instructions: Cleveland's Cyst (ED) Coding Level of Care Code ED Director Pharmacology for Chg Fwd Exam Comprehensive
[2021-04-15 03:34] VITALS: BP 136/70; PULSE 74; RESP 20; O2SAT 97
== END 2021-04-15 03:30 | disposition home or self-care (01) ==
PROVIDERS: Emergency Provider Emergency Medicine; PCP Family Medicine
DX: M71.22 Synovial cyst of popliteal space [Baker], left knee (principal); Z79.02 Long term (current) use of antithrombotics/antiplatelets; I25.10 Atherosclerotic heart disease of native coronary artery without angina pectoris; E78.5 Hyperlipidemia, unspecified; I10 Essential (primary) hypertension
CPT/HCPCS: 93971; 99282

== ENCOUNTER 2021-05-05 12:49 | Emergency (ER) | payer OTHER, SELFPAY ==
[2021-05-05 13:12] VITALS: BP 158/80; PULSE 61; RESP 16; TEMP 36.6; O2SAT 100
--- NOTE | 2021-05-05 13:39 | ED_ITS ---
HPI - Back Pain/Injury General: Chief Complaint: Back Pain/Injury Stated Complaint: Lower back pain Time Seen by Provider: 05/05/21 13:21 Source: patient Mode of arrival: ambulatory Limitations: no limitations History of Present Illness: HPI Narrative: Patient is a 65-year-old male who presents to ED today with a complaint of bilateral flank/back pain that began approximately 2 weeks ago. Patient tells me he has a history of kidney stones and states he initially was concerned his pain could be secondary to this. He states he has seen Dr. Casarez previously for similar discomfort. He states he had had an x-ray which did not visualize any stones. Patient does not have any alleviating or worsening factors to his discomfort. He is not complaining of any urinary symptoms. No fevers/chills. He states he sometimes has pain to the midline of his back as well. No radicular symptoms. Associated symptoms: Deny abdominal pain, chills, difficulty walking, dysuria, fatigue, fever(s), hematuria or urinary urgency Review of Systems Const: Denies: fever(s), chills, body aches, fatigue or malaise Card: Denies: chest pain Resp: Denies: dyspnea GI: Denies: abdominal pain : Reports: flank pain; Denies: difficulty urinating, dysuria, urinary frequency, urinary urgency, urina ry hesitancy, hematuria, genital pain, testicular pain, testicular mass or scrotal swelling Musc: Reports: back pain; Denies: neck pain, extremity pain or joint pain Skin/Breast: Denies: rash Neuro: Denies: headache(s), numbness in extremities, weakness in extremities, sensory changes, difficulty walking or dizziness [facility] ED PFSH: Medical History Anxiety Arrhythmia Atherosclerotic heart disease of [place] coronary artery with other forms of angina pectoris EKG from 07/05/2020 EKG revealed bradycardia with a rate of [address]. 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 pectoris Atypical chest pain CAD (coronary artery disease) Chronic prostatitis GERD (gastroesophageal reflux disease) Hyperlipidemia Hypertension Urinary calculus, unspecified Surgical History H/O heart artery stent H/O laminectomy H/O shoulder surgery Family History Mother , 62 CAD (coronary artery disease) Social History Alcohol intake: never Adopted: No Caregiver/support person: No Lives independently: No Household members: spouse Marital status: Current occupational status: retired History of recent travel: No Current gender identity: Male Physical Exam Const: COMMON NORMALS: no acute distress, average body habitus, patient oriented x3, no limitations, healthy appearing, alert and well nourished GENERAL APPEARANCE: cooperative ORIENTATION/CONSCIOUSNESS: Yes awake, Yes oriented to person, Yes oriented to place and Yes oriented to time GI: COMMON NORMALS: Normal to inspection, nondistended, normoactive bowel sounds present, Soft to palpation, non-tender, No hepatosplenomegaly present and no masses PALPATION: Yes Soft to palpation and Yes No hepatosplenomegaly present Back/Pelvis: BACK IMAGE (MALE): 1. 2. complains of pain but is not reproducible on exam at this time Extremity: COMMON NORMALS: normal to inspection and full ROM GENERAL: Yes normal exam except as noted Neuro: COMMON NORMALS: patient oriented x3, moves all extremities, no focal motor deficits, no sensory deficits noted and gait normal SENSORIUM/ORIENTATION: Yes alert, Yes oriented to person, Yes oriented to place and Yes oriented to time Skin: COMMON NORMALS: no rashes or lesions noted GENERAL SKIN EXAM: no rashes or lesions noted TRAUMA: no lacerations or abrasions Course Vital Signs: Vital signs: Vital Signs Temperature 97.9 F 05/05/21 13:12 Pulse Rate 78 05/05/21 14:29 Respiratory Rate 15 05/05/21 14:29 Blood Pressure 117/56 05/05/21 14:29 Pulse Oximetry 98 05/05/21 14:29 MDM - Back Pain/Injury MDM Narrative: Medical decision making narrative: Patient clinically appears in no acute distress. His vital signs are stable. He has minor bilateral flank pain that is not easily producible on exam. He has had this similar pain approximately 2 months ago when he saw Dr. Casarez. His labs at this time are unremarkable. His urine is completely normal. I have a low suspicion that this would be secondary to nephro/ureterolithiasis. I suspect this is secondary to musculoskeletal. Recommend treatment with anti-inflammatories and ice/heat and follow-up with PCP Dr. Swift. Lab Data: Attestation: I reviewed the patient's lab results. Labs: Lab Results 05/05/21 05/05/21 05/05/21 14:25 14:48 14:48 WBC 8.1 10^3/uL 10^3/ uL (4.0-10.0) RBC 5.71 10^6/uL H 10 ^6/uL (4.1-5.3) Hgb 16.7 g/dL H g/dL (11.7-16.6) Hct 51.4 % % (42.0-52.0) MCV 90.0 fl fl (80-94) MCH 29.2 pg pg (28.0-34.0) MCHC 32.5 g/dL g/dL (30.0-36.0) RDW 13.2 % % (12.1-15.1) Plt Count 155 10^3/cmm 10^3 /cmm (130-400) MPV 9.3 fL fL (7.4-10.4) Neut % (Auto) 81.2 % % Lymph % (Auto) 12.3 % % [place] % (Auto) 5.4 % % Eos % (Auto) 0.5 % % Baso % (Auto) 0.2 % % Neut # (Auto) 6.59 10^3/uL 10^3 /uL (1.8-7.7) Lymph # (Auto) 1.0 10^3/uL 10^3/ uL (0.8-4.8) [place] # (Auto) 0.4 10^3/uL 10^3/ uL (0.2-0.9) Eos # (Auto) 0.0 10^3/uL 10^3/ uL (0.0-0.8) Baso # (Auto) 0.0 10^3/uL 10^3/ uL (0.0-0.1) Nucleated RBC % (a uto) 0 % % Nucleated RBCs # 0.0 /100WBC /100W BC Sodium 137 mmol/L mmol/L (136-145) Potassium 4.5 mmol/L mmol/L (3.5-5.1) Chloride 101 mmol/L mmol/L (98-107) Carbon Dioxide 26 mmol/L mmol/L (22-29) Anion Gap 14.5 (5-19) BUN 19 mg/dL mg/dL (8-23) Creatinine 1.0 mg/dL mg/dL (0.7-1.2) GFR Calculation 75.5 mL/min L mL/ min (90-130) Glucose 74 mg/dL mg/dL (65-115) Calculated Osmolal ity 285 mOsm/kg mOsm/ kg (285-295) Calcium 10.2 mg/dL mg/dL (8.5-10.5) Total Bilirubin 2.4 mg/dL H mg/dL (0.15-1.2) AST 20 U/L U/L (0-40) ALT 20 U/L U/L (0-41) Alkaline Phosphata se 66 IU/L IU/L (40-130) Total Protein 8.1 g/dL g/dL (6.6-8.7) Albumin 5.0 g/dL g/dL (3.5-5.2) Globulin 3.1 g/dL g/dL (1.3-4.6) Urine Color Straw (Yellow) Urine Appearance Clear (CLEAR) Urine pH 6.5 (5-7) Ur Specific Gravit y 1.010 (1.005-1.030) Urine Protein Neg (Negative) Urine Glucose (UA) Norm (Normal) Urine Ketones Negative (Negative) Urine Blood Neg (Negative) Urine Nitrate Negative (Negative) Urine Bilirubin Neg (Negative) Urine Urobilinogen Norm mg/dL mg/dL (Negative) Ur Leukocyte Vicki ase Negative (Negative) Discharge Plan Discharge Patient Disposition: Home Clinical Impression: Back pain of thoracolumbar region Condition: Stable Prescriptions: No Action nitroglycerin 0.4 mg tablet, sublingual 0.4 mg sublingual Q5M PRN (Reason: chest pain) 30 Days Qty: 30 RF: 3 alprazolam 0.25 mg tablet 0.25 mg PO TID PRN (Reason: Anxiety) RF: 0 ibuprofen 200 mg Tablet 600 mg PO Q4H PRN (Reason: Pain) RF: 0 metoprolol tartrate 25 mg tablet 25 mg PO QAM RF: 0 Plavix 75 mg tablet 75 mg PO QAM RF: 0 multivitamin [Daily Multi-Vitamin] Tablet 1 tab PO QAM RF: 0 Discharge Orders: Discharge ED (Routine); Ordered 05/05/21 Ordered By: Ira Corado Referrals: Sony Swift MD [Primary Care Provider] - Coding Level of Care Code ED Supervisor Cigar Making Machine for Chg Fwd Exam Detailed
--- NOTE | 2021-05-05 13:57 | PC.PHAR ---
pt states he takes care of his own medications-pt states he takes metoprolol tartrate 25mg qam ext med history shows last filled on 02/04/21 90d/s for 25 mg bid-notes are made in the pharmacy comments
[2021-05-05 14:29] VITALS: BP 117/56; PULSE 78; RESP 15; O2SAT 98
[2021-05-05 14:38] LABS: Add Urine Microscopic? NO; Charge for UA Resulting for Rev
[2021-05-05 14:40] LABS: Bilirubin Urine Neg (Negative); Blood Urine Neg (Negative); Glucose Urine UA Norm (Normal); Ketones Urine Negative (Negative); Nitrate Urine Negative (Negative); Protein Urine Neg (Negative); Urine Appearance Clear (CLEAR); Urine Color Straw (Yellow); pH Urine 6.5 (5-7)
[2021-05-05 14:41] LABS: Leukocyte Esterase Urine Negative (Negative); Urobilinogen Urine Norm (Negative)
[2021-05-05 14:55] LABS: Basophils % 0.2 %; Eosinophils % 0.5 %; Hematocrit 51.4 % (42.0-52.0); Hemoglobin 16.7 g/dL (11.7-16.6); Lymphocytes % 12.3 %; Mean Corpuscular HGB Conc 32.5 g/dL (30.0-36.0); Mean Corpuscular Hemoglobin 29.2 pg (28.0-34.0); Mean Platelet Volume 9.3 fL (7.4-10.4); Monocytes # 0.4 10^3/uL (0.2-0.9); Monocytes % 5.4 %; Neutrophils # 6.59 10^3/uL (1.8-7.7); Neutrophils % 81.2 %; Nucleated Red Blood Cells % 0 %; Platelet Count 155 10^3/cmm (130-400); Red Blood Count 5.71 10^6/uL (4.1-5.3); Red Cell Distribution Width 13.2 % (12.1-15.1); White Blood Count 8.1 10^3/uL (4.0-10.0)
[2021-05-05 15:25] LABS: Alanine Aminotransferase 20 U/L (0-41); Alkaline Phosphatase 66 IU/L (40-130); Anion Gap 14.5 (5-19); Aspartate Amino Transferase 20 U/L (0-40); Blood Urea Nitrogen 19 mg/dL (8-23); Calcium 10.2 mg/dL (8.5-10.5); Carbon Dioxide 26 mmol/L (22-29); Chloride 101 mmol/L (98-107); Globulin 3.1 g/dL (1.3-4.6); Glomerular Filtration Rate 75.5 mL/min (90-130); Glucose 74 mg/dL (65-115); Osmolality Calculated 285 mOsm/kg (285-295); Potassium 4.5 mmol/L (3.5-5.1); Sodium 137 mmol/L (136-145); Total Bilirubin 2.4 mg/dL (0.15-1.2); Total Protein 8.1 g/dL (6.6-8.7)
== END 2021-05-05 16:12 | disposition home or self-care (01) ==
PROVIDERS: Emergency Provider Physician Assistant; PCP Family Medicine
DX: M54.6 Pain in thoracic spine (principal); Z79.02 Long term (current) use of antithrombotics/antiplatelets; I25.10 Atherosclerotic heart disease of native coronary artery without angina pectoris; E78.5 Hyperlipidemia, unspecified; I10 Essential (primary) hypertension
CPT/HCPCS: 80053; 81003; 85025; 99282

== ENCOUNTER 2021-05-23 09:27 | Outpatient (CLI) | payer OTHER, SELFPAY ==
--- NOTE | 2021-05-23 09:30 | CT_ITS ---
WS: [id number] CT ABDOMEN AND PELVIS NONCONTRAST HISTORY: BILATERAL FLANK PAIN TECHNIQUE: Imaging performed through the abdomen and pelvis. Coronal and sagittal reformats are submi tted. All CT scans at [facility] use at least one of these dose optimization techniques: auto mated exposure control; mA and/or kV adjustment per patient size (includes targeted exams where dose is matched to clinical indication); or iterative reconstruction. DLP: 815.32 mGy.cm COMPARISON: 02/05/2017 Lower thorax: Lung bases are clear. Visualized heart is normal. No hiatal hernia. Liver: Normal size liver. There are a few scattered low-attenuation lesions which are too small to ch aracterize but stable and probably representing cysts. Granuloma noted throughout the liver. No bile duct dilatation. Gallbladder: Normal gallbladder. Pancreas: Normal size and attenuation. Normal pancreatic duct. No pancreatitis or mass. Spleen: Normal size spleen with granulomata. Adrenal glands: Normal. No mass. Right kidney: No hydronephrosis. Multiple low-attenuation masses are present within the kidney. The l argest is a cyst in the upper pole measuring 6.3 x 6.8 cm. Additional cortical masses which are too s mall to characterize. Additional perinephric stranding with no obstruction. Left kidney: Perinephric stranding with no obstruction. Large cyst in the upper pole measures 6.8 x 8 .3 cm. Aorta: Mild atherosclerosis abdominal aorta with no aneurysm. No free fluid, intraperitoneal air or significant lymphadenopathy. GI tract: Normal appendix. Moderate fecal retention. No obstruction. Abdominal wall: Negative. No hernia. Pelvis: Minimally distended urinary bladder. There is mild bladder wall thickening. Prostate gland is enlarged with central calcifications. Prostate measures 6.1 cm in length x 6.1 x 4.3 cm. No adjacent fat stranding or adenopathy. Osseous structures: Unremarkable. CT/CT kidney stone [id number] IMPRESSION: 1. No renal obstruction or ureteral calcifications. 2. Enlarged prostate gland with central calcifications. Prostate measures 6.1 x 6.1 x 4.3 cm. 3. Bilateral renal cysts. Additional indeterminate lesions within the RIGHT ki dney. 4. Hepatic and splenic granulomata. 5. No ascites. 6. Normal appendix.
== END 2021-05-23 09:28 | disposition home or self-care (01) ==
LOC: RAD 09:29
PROVIDERS: PCP Family Medicine; Visit Provider Urology
DX: N40.0 Benign prostatic hyperplasia without lower urinary tract symptoms (principal); N28.1 Cyst of kidney, acquired; K75.3 Granulomatous hepatitis, not elsewhere classified; L92.8 Other granulomatous disorders of the skin and subcutaneous tissue; R10.9 Unspecified abdominal pain
CPT/HCPCS: 74176; 81003

== ENCOUNTER 2021-10-19 19:38 | Emergency (ER) | payer OTHER, SELFPAY ==
[2021-10-19] VITALS (9 sets, daily range): BP systolic 113–142; BP diastolic 66–84; PULSE 69–93; RESP 14–18; TEMP 36.8; O2SAT 93–97; BMI 24.3
--- NOTE | 2021-10-19 20:02 | W.ED.FEVER ---
HPI - Fever General: Chief Complaint: Fever Stated Complaint: Fever\Kidneys Hurt\Dark Urine Time Seen by Provider: 10/19/21 19:57 History of Present Illness: 66-year-old male patient comes in today with complaints of bilateral flank pain, and fever with chills starting last night. Patient has a history of renal stones, atherosclerotic heart disease, chronic back pain, GERD, hypertension, hyperlipidemia, and chronic prostatitis. Patient reports some nausea and some mild diarrhea. Patient denies any cough or exposure to COVID-19. Patient appears mildly unwell. Patient appears in mild pain. Patient's had surgery on his back and has had stents placed. Stent placement occurred about 1 month ago. Associated symptoms: Reports abdominal pain and flank pain; Deny chest pain Review of Systems General: Reports: 10 or more systems reviewed and unremarkable except in HPI and below Const: Reports: fever(s) Card: Denies: chest pain Resp: Denies: dyspnea, productive cough or non-productive cough GI: Reports: abdominal pain : Reports: flank pain Musc: Reports: back pain PFSH ED PFSH: Medical History Anxiety Arrhythmia Atherosclerotic heart disease of [place] coronary artery with other forms of angina pectoris EKG from 07/05/2020 EKG revealed bradycardia with a rate of [address]. [address]-T change Atherosclerotic heart disease of [place] coronary artery with unstable angina pectoris Atypical chest pain CAD (coronary artery disease) Chronic back pain Chronic prostatitis GERD (gastroesophageal reflux disease) Hyperlipidemia Hypertension Urolithiasis Surgical History H/O heart artery stent H/O laminectomy H/O shoulder surgery Family History Mother , 62 CAD (coronary artery disease) Father No problems noted. Social History Alcohol intake: never Adopted: No Caregiver/support person: No Lives independently: No Household members: spouse Marital status: Current occupational status: retired History of recent travel: No Current gender identity: Male Physical Exam Const: COMMON NORMALS: alert HENMT: COMMON NORMALS: normocephalic HEAD & SCALP: normocephalic Neck/C-Spine: COMMON NORMALS: full ROM and no meningeal signs Resp: COMMON NORMALS: normal respiratory effort and clear to auscultation bilaterally AUSCULTATION: clear to auscultation bilaterally Cardio: COMMON NORMALS: regular rate and regular rhythm RATE: regular rate RHYTHM: regular rhythm GI: AUSCULTATION: Yes normoactive bowel sounds PALPATION: Yes Firmness to palpation present (GI), Yes Tenderness to palpation present (GI) (Mild general), No Guarding due to palpation present (GI) and No Rebound tenderness present : COMMON NORMALS: Yes no CVA tenderness BLADDER/KIDNEY EXAM: Yes no CVA tenderness Back/Pelvis: COMMON NORMALS: no CVA tenderness Extremity: COMMON NORMALS: no pedal edema Neuro: SENSORIUM/ORIENTATION: Yes alert MENINGEAL SIGNS: Yes no meningeal signs Psych: COMMON NORMALS: cooperative Skin: COMMON NORMALS: turgor normal GENERAL SKIN EXAM: turgor normal Course Vital Signs: Vital signs: Vital Signs Temperature 98.3 F 10/19/21 19:47 Pulse Rate 69 10/19/21 23:30 Respiratory Rate 18 10/19/21 23:30 Blood Pressure 117/66 10/19/21 23:30 Pulse Oximetry 95 10/19/21 23:30 MDM - Fever Medical Decision Making 66-year-old male patient comes in today with some abdominal pain radiating to bilateral flanks. Patient reports symptoms started last night with a fever. Patient thought he might have a urinary tract infection. On exam abdomen was tender and slightly firm. Bilateral CVA was negative for tenderness. Bowel sounds are hyperactive. Vital signs were normal. Differential diagnosis includes enteritis, bowel obstruction, renal calculi, urinary tract infection. Laboratory values were unremarkable. Urinalysis was clear. Patient does have a elevation in bilirubin which is chronic for him. CT of the abdomen and pelvis noted enteritis without any signs of obstruction. Reviewed exam with patient recommended treatment with clear fluids until pain improves, patient was given 1 L of IV normal saline, fentanyl and Zofran for pain and nausea. Patient will be continued on some hydrocodone and Zofran to help with pain and nausea. Patient reported understanding of care plan and need for follow-up or return to the ER. Lab Data : 10/19/21 21:03 10/19/21 21:03 Radiology Impressions Abdomen/Pelvis CT 10/19/21 20:06 IMPRESSION: Cannot exclude nonspecific enteritis changes of small bowel with mildly distended fluid-filled appearance. Otherwise, no distinct focal acute inflammatory disease process within abdomen or pelvis identified. COMMENTS: Consistent with the [employer]'s Incidental Findings Committee white paper (J Am Kirk Radiol 2018): Any incidental renal lesion less than 1 cm or classified as too small to characterize, or any incidental cystic renal lesion characterized as simple-appearing, is likely benign. No follow-up imaging is recommended for these lesions per consensus recommendations based on imaging criteria. Laboratory Results WBC 6.9 10^3/uL (4.0-10.0) 10/19/21 21:03 RBC 4.95 10^6/uL (4.1-5.3) 10/19/21 21:03 Hgb 14.9 g/dL (11.7-16.6) 10/19/21 21:03 Hct 43.7 % (42.0-52.0) 10/19/21 21:03 MCV 88.3 fl (80-94) 10/19/21 21:03 MCH 30.1 pg (28.0-34.0) 10/19/21 21:03 MCHC 34.1 g/dL (30.0-36.0) 10/19/21 21:03 RDW 14.3 % (12.1-15.1) 10/19/21 21:03 Plt Count 125 10^3/cmm (130-400) L 10/19/21 21:03 MPV 9.3 fL (7.4-10.4) 10/19/21 21:03 Neut % (Auto) 83.7 % 10/19/21 21:03 Lymph % (Auto) 7.5 % 10/19/21 21:03 [place] % (Auto) 7.8 % 10/19/21 21:03 Eos % (Auto) 0.6 % 10/19/21 21:03 Baso % (Auto) 0.3 % 10/19/21 21:03 Neut # (Auto) 5.80 10^3/uL (1.8-7.7) 10/19/21 21:03 Lymph # (Auto) 0.5 10^3/uL (0.8-4.8) L 10/19/21 21:03 [place] # (Auto) 0.5 10^3/uL (0.2-0.9) 10/19/21 21:03 Eos # (Auto) 0.0 10^3/uL (0.0-0.8) 10/19/21 21:03 Baso # (Auto) 0.0 10^3/uL (0.0-0.1) 10/19/21 21:03 Nucleated RBC % (auto) 0 % 10/19/21 21:03 Nucleated RBCs # 0.0 /100WBC 10/19/21 21:03 Sodium 139 mmol/L (136-145) 10/19/21 21:03 Potassium 3.8 mmol/L (3.5-5.1) 10/19/21 21:03 Chloride 103 mmol/L (98-107) 10/19/21 21:03 Carbon Dioxide 24 mmol/L (22-29) 10/19/21 21:03 Anion Gap 15.8 (5-19) 10/19/21 21:03 BUN 18 mg/dL (8-23) 10/19/21 21:03 Creatinine 1.0 mg/dL (0.7-1.2) 10/19/21 21:03 GFR Calculation 75.2 mL/min (90-130) L 10/19/21 21:03 Glucose 101 mg/dL (65-115) 10/19/21 21:03 Calculated Osmolality 290 mOsm/kg (285-295) 10/19/21 21:03 Lactic Acid 1.0 mmol/L (0.5-2.2) 10/19/21 21:03 Calcium 9.6 mg/dL (8.5-10.5) 10/19/21 21:03 Total Bilirubin 3.6 mg/dL (0.15-1.2) H 10/19/21 21:03 AST 21 U/L (0-40) 10/19/21 21:03 ALT 26 U/L (0-41) 10/19/21 21:03 Alkaline Phosphatase 64 IU/L (40-130) 10/19/21 21:03 Total Protein 7.3 g/dL (6.6-8.7) 10/19/21 21:03 Albumin 4.9 g/dL (3.5-5.2) 10/19/21 21:03 Globulin 2.4 g/dL (1.3-4.6) 10/19/21 21:03 Lipase 20 U/L (13-60) 10/19/21 21:03 Urine Color Yellow (Yellow) 10/19/21 23:08 Urine Appearance Clear (CLEAR) 10/19/21 23:08 Urine pH 7 (5-7) 10/19/21 23:08 Ur Specific [place] 1.015 (1.005-1.030) 10/19/21 23:08 Urine Protein Neg (Negative) 10/19/21 23:08 Urine Glucose (UA) Norm (Normal) 10/19/21 23:08 Urine Ketones 1+ (Negative) H 10/19/21 23:08 Urine Blood Neg (Negative) 10/19/21 23:08 Urine Nitrate Negative (Negative) 10/19/21 23:08 Urine Bilirubin Neg (Negative) 10/19/21 23:08 Urine Urobilinogen 1 mg/dL (Negative) H 10/19/21 23:08 Ur Leukocyte Esterase Negative (Negative) 10/19/21 23:08 Discharge Plan Discharge Patient Disposition: Home Clinical Impression: Enteritis Abdominal pain Qualifiers: Abdominal location: generalized Qualified Code(s): R10.84 - Generalized abdominal pain Condition: Stable Prescriptions: New hydrocodone-acetaminophen 5-325 mg tablet 1 tab PO Q8H PRN (Reason: pain (scale score 7-10)) Qty: 6 0RF ondansetron 4 mg tablet,disintegrating 4 mg PO Q8H PRN (Reason: nausea and vomiting) Qty: 7 0RF No Action nitroglycerin 0.4 mg tablet, sublingual 0.4 mg sublingual Q5M PRN (Reason: chest pain) 30 Days Qty: 30 3RF Rx Instructions: until response; do not exceed 3 doses per episode alprazolam 0.25 mg tablet 0.25 mg PO TID PRN (Reason: Anxiety) 0RF ibuprofen 200 mg Tablet 600 mg PO Q4H PRN (Reason: Pain) 0RF metoprolol tartrate 25 mg tablet 25 mg PO BID 0RF clopidogrel [Plavix] 75 mg tablet 75 mg PO QAM 0RF multivitamin [Daily Multi-Vitamin] Tablet 1 tab PO QAM 0RF rosuvastatin 40 mg tablet 40 mg PO DAILY 0RF isosorbide mononitrate 30 mg tablet extended release 24 hr 30 mg PO DAILY PRN (Reason: Blood Pressure) 0RF aspirin 81 mg tablet,delayed release (DR/EC) 81 mg PO DAILY 0RF Discharge Orders: Discharge ED (Routine); Ordered 10/19/21 Ordered By: Niraj Vaughn Referrals: Sony Swift MD [Primary Care Provider] - Discharge Diet: Advance as tolerated Discharge Activity: Increase activity as tolerated Patient Instructions: Abdominal Pain (ED), Enteritis (ED), Opioid Safety Activity Restrictions/Additional Instructions: Home and rest. Drink plenty of water and fluids. Use ondansetron as needed for nausea or vomiting. Use acetaminophen to control pain. Use hydrocodone for severe pain. Follow-up with primary care in 2 days for recheck. Return to ER for worsening symptoms, blood in vomit or stool, or new concerns. Coding Level of Care Code ED Commercial Correspondent for Chg Fwd Exam Comprehensive
--- NOTE | 2021-10-19 20:06 | CTR_ITS ---
PROCEDURE INFORMATION: Exam: CT Abdomen And Pelvis With Contrast Exam date and time: 10/19/2021 10:10 PM Age: 66 years old Clinical indication: Fever and nausea; Abdominal pain; Prior surgery; Surgery type: Laminectomy. Coronary stent. ; Patient HX: C/O bilateral flank pain with nausea and fever. ; Additional info: Abd pain, fever TECHNIQUE: Imaging protocol: Computed tomography of the abdomen and pelvis with contrast. Radiation optimization: All CT scans at this facility use at least one of these dose optimization techniques: automated exposure control; mA and/or kV adjustment per patient size (includes targeted exams where dose is matched to clinical indication); or iterative reconstruction. Contrast material: OMNI 300; Contrast volume: 95 ml; Contrast route: INTRAVENOUS (IV); COMPARISON: CT abdomen pelvis w con* [id number] 02/05/2017 10:07 AM RADIATION DOSE METRICS: Total DLP (mGy-cm): 1557.68 FINDINGS: Liver: Scattered tiny low-attenuation liver lesions are stable from comparison imaging but otherwise too small fully characterize. Gallbladder and bile ducts: Normal. No calcified stones. No ductal dilation. Pancreas: Normal. No ductal dilation. Spleen: Calcified splenic granulomas. Adrenal glands: Normal. No mass. Kidneys and ureters: Multiple simple bilateral renal cortical cysts. No dedicated imaging follow-up recommended. Negative for hydronephrosis. Negative for perinephric inflammatory change. Negative for renal stones. Symmetric parenchyma enhancement. Stomach and bowel: Several mildly distended small bowel loops in the mid abdomen with air-fluid levels. No inflammatory wall thickening. No transition point to suggest obstruction. No mesenteric inflammation. Appendix: No evidence of appendicitis. Intraperitoneal space: See Stomach and bowel finding. Vasculature: Unremarkable. No abdominal aortic aneurysm. Lymph nodes: Unremarkable. No enlarged lymph nodes. Urinary bladder: Unremarkable as visualized. Reproductive: Moderate prostatomegaly. Bones/joints: Unremarkable. No acute fracture. Soft tissues: Small fat containing right inguinal hernia. CT/CT abdomen pelvis w con* [id number] IMPRESSION: Cannot exclude nonspecific enteritis changes of small bowel with mildly distended fluid-filled appearance. Otherwise, no distinct focal acute inflammatory disease process within abdomen or pelvis identified. COMMENTS: Consistent with the [employer]'s Incidental Findings Committee white paper (J Am Kirk Radiol 2018): Any incidental renal lesion less than 1 cm or classified as too small to characterize, or any incidental cystic renal lesion characterized as simple-appearing, is likely benign. No follow-up imaging is recommended for these lesions per consensus recommendations based on imaging criteria.
[2021-10-19 21:17] LABS: Basophils % 0.3 %; Eosinophils % 0.6 %; Hematocrit 43.7 % (42.0-52.0); Hemoglobin 14.9 g/dL (11.7-16.6); Lymphocytes # 0.5 10^3/uL (0.8-4.8); Lymphocytes % 7.5 %; Mean Corpuscular HGB Conc 34.1 g/dL (30.0-36.0); Mean Corpuscular Hemoglobin 30.1 pg (28.0-34.0); Mean Corpuscular Volume 88.3 fl (80-94); Mean Platelet Volume 9.3 fL (7.4-10.4); Monocytes # 0.5 10^3/uL (0.2-0.9); Monocytes % 7.8 %; Neutrophils % 83.7 %; Nucleated Red Blood Cells % 0 %; Platelet Count 125 10^3/cmm (130-400); Red Blood Count 4.95 10^6/uL (4.1-5.3); Red Cell Distribution Width 14.3 % (12.1-15.1); White Blood Count 6.9 10^3/uL (4.0-10.0)
[2021-10-19] MEDS: ondansetron 2 mg/ML SDV 2 mL 4 MG IVP (21:21)
[2021-10-19] MEDS: fentaNYL 50 mcg/mL INJ 2mL IVP (21:23)
[2021-10-19 21:49] LABS: Alanine Aminotransferase 26 U/L (0-41); Albumin Level 4.9 g/dL (3.5-5.2); Alkaline Phosphatase 64 IU/L (40-130); Anion Gap 15.8 (5-19); Aspartate Amino Transferase 21 U/L (0-40); Blood Urea Nitrogen 18 mg/dL (8-23); Calcium 9.6 mg/dL (8.5-10.5); Carbon Dioxide 24 mmol/L (22-29); Chloride 103 mmol/L (98-107); Globulin 2.4 g/dL (1.3-4.6); Glomerular Filtration Rate 75.2 mL/min (90-130); Glucose 101 mg/dL (65-115); Lipase 20 U/L (13-60); Osmolality Calculated 290 mOsm/kg (285-295); Potassium 3.8 mmol/L (3.5-5.1); Sodium 139 mmol/L (136-145); Total Bilirubin 3.6 mg/dL (0.15-1.2); Total Protein 7.3 g/dL (6.6-8.7)
[2021-10-19] MEDS: iohexol 300 mg/mL 100 mL Btl IV (22:10)
[2021-10-19 23:11] LABS: Add Urine Microscopic? NO; Charge for UA Resulting for Rev
[2021-10-19] MEDS: sodium chloride 0.9% 1,000 ML 999 ML IV (23:12)
[2021-10-19 23:33] LABS: Bilirubin Urine Neg (Negative); Blood Urine Neg (Negative); Glucose Urine UA Norm (Normal); Ketones Urine 1+ (Negative); Leukocyte Esterase Urine Negative (Negative); Nitrate Urine Negative (Negative); Protein Urine Neg (Negative); Specific Gravity, Urine 1.015 (1.005-1.030); Urine Appearance Clear (CLEAR); Urine Color Yellow (Yellow); Urobilinogen Urine 1 mg/dL (Negative); pH Urine 7 (5-7)
[2021-10-20 00:12] VITALS: BP 117/64; PULSE 68; RESP 18; O2SAT 98
== END 2021-10-20 00:12 | disposition home or self-care (01) ==
PROVIDERS: Emergency Provider Nurse Practitioner Family; PCP Family Medicine
DX: K52.9 Noninfective gastroenteritis and colitis, unspecified (principal); Z79.02 Long term (current) use of antithrombotics/antiplatelets; Z79.82 Long term (current) use of aspirin; I25.10 Atherosclerotic heart disease of native coronary artery without angina pectoris; E78.5 Hyperlipidemia, unspecified; I10 Essential (primary) hypertension
CPT/HCPCS: 74177; 80053; 81003; 83605; 83690; 85025; 87040; 96361; 96374; 96375; 99284; J2405; J3010; J7030; Q9967

== ENCOUNTER 2022-03-29 11:25 | Outpatient (CLI) | payer OTHER, SELFPAY ==
--- NOTE | 2022-03-29 11:30 | FL_ITS ---
WS: [id number] Exam: FL barium swallow [id number] Date/Time of Exam: 03/29/2022 11:33 AM Reason For Exam: DIFFICULTY SWALLWOING Fluoroscopy time: 2.8 minutes # of spot films: 94 Swallowing function at the level of oropharynx was normal. No sign of intrinsic esophageal mass or st ricture. There is mild extrinsic compression along the posterior margin of the cervical esophagus sec ondary to bone spurring of the lower endplate of C6 in the upper plate of C7. This causes mild narro wing. Esophageal motility was normal. No hiatal hernia or gastroesophageal reflux. No aspiration or p enetration was observed. FL/FL barium swallow [id number] IMPRESSION: 1. Mild extrinsic compression along the posterior cervical esophagus secondary to anterior bone spurs along C6 and C7 which causes mild luminal narrowing of t he esophagus. 2. No intrinsic esophageal mass or stricture noted otherwise. Normal esophageal motility.
== END 2022-03-29 11:26 | disposition home or self-care (01) ==
LOC: RAD 11:28
PROVIDERS: PCP Family Medicine; Visit Provider Family Medicine
DX: R13.10 Dysphagia, unspecified (principal)
CPT/HCPCS: 74220

== ENCOUNTER 2022-03-31 07:58 | Outpatient (CLI) | payer OTHER, SELFPAY ==
--- NOTE | 2022-03-31 08:09 | XR_ITS ---
WS: [id number] Exam: XR KUB [id number] Date/Time of Exam: 03/31/2022 8:09 AM Reason For Exam: STONES Comparison 03/25/2021. No bowel obstruction or free air. Large amount retained contrast in the colon. The appendix fills. No sign of organ enlargement. Mild lumbar scoliosis with left convexity. XR/XR KUB [id number] IMPRESSION: 1. No acute abdominal finding. Residual barium in the large bowel.
== END 2022-03-31 07:59 | disposition home or self-care (01) ==
LOC: RAD 08:01
PROVIDERS: PCP Family Medicine; Visit Provider Urology
DX: N20.9 Urinary calculus, unspecified (principal)
CPT/HCPCS: 74018; 81003

== ENCOUNTER → 2022-04-19 10:17 | Outpatient (BNVA) | payer OTHER, SELFPAY | PROVIDERS: PCP Family Medicine; Visit Provider Family Medicine | DX: E78.5 Hyperlipidemia, unspecified (principal); I10 Essential (primary) hypertension | CPT/HCPCS: 80061 ==

== ENCOUNTER 2022-08-14 14:13 | Outpatient (CLI) | payer MEDICARE, OTHER, SELFPAY | END 2022-08-14 14:14 | disposition home or self-care (01) | LOC: LAB 14:20 | PROVIDERS: PCP Family Medicine; Visit Provider Urology | DX: Z12.5 Encounter for screening for malignant neoplasm of prostate (principal) | CPT/HCPCS: 36415; 84153 ==

== ENCOUNTER 2022-08-24 09:36 | Outpatient (CLI) | payer MEDICARE, OTHER, SELFPAY ==
--- NOTE | 2022-08-24 09:52 | XR_ITS ---
WS: [id number] Exam: XR KUB [id number] Date/Time of Exam: 08/24/2022 9:58 AM Reason For Exam: STONES Comparison 03/31/2022. No bowel obstruction or free air. A large circular soft tissue mass seen in the left abdomen apparent ly represents a large known left renal cyst. No sign of organ enlargement otherwise. Mild levoscolios is of the lumbar spine. Nonspecific left pelvic calcifications. XR/XR KUB [id number] IMPRESSION: 1. No acute abdominal process noted. 2. Large circular soft tissue density noted in the left abdomen and apparently represents a large known left renal cyst.
== END 2022-08-24 09:37 | disposition home or self-care (01) ==
LOC: RAD 09:44
PROVIDERS: PCP Family Medicine; Visit Provider Urology
DX: N20.9 Urinary calculus, unspecified (principal); N41.1 Chronic prostatitis
CPT/HCPCS: 51798; 74018; 81003; 99213

== ENCOUNTER → 2022-09-20 15:07 | Outpatient (BNVA) | payer MEDICARE, OTHER, SELFPAY | PROVIDERS: PCP Family Medicine; Visit Provider Surgery | DX: K40.90 Unilateral inguinal hernia, without obstruction or gangrene, not specified as recurrent (principal) | CPT/HCPCS: 99203 ==

== ENCOUNTER 2022-10-23 06:59 | Day surgery (SDC) | payer MEDICARE, OTHER, SELFPAY ==
[2022-10-20 08:49] VITALS: BMI 25.0
[2022-10-23] VITALS (15 sets, daily range): BP systolic 120–150; BP diastolic 60–90; PULSE 55–73; RESP 12–20; TEMP 36.2–36.7; O2SAT 94–100
[2022-10-23] MEDS: sodium chloride 0.9% 1,000 ML 30 ML IV (07:18)
--- NOTE | 2022-10-23 07:58 | P.HP_ITS ---
Providers/Chief Complaint Primary Care Provider: Sony Swift MD Chief Complaint: K40.90 History of Present Illness Tom Peguero is a 67 year old male with a right inguinal hernia. Medications/Allergies Home Medications Medication Instructions Recorded Confirmed Last Taken Type multivitamin (Daily Multi-Vitamin 1 tab PO QAM 06/02/20 10/20/22 10/22/22 History tablet) nitroglycerin 0.4 mg sublingual 0.4 mg sublingual Q5M PRN chest 11/02/20 10/23/22 Unknown Rx tablet pain 30 days #30 tabs alprazolam 0.25 mg tablet 0.25 mg PO TID PRN Anxiety 05/05/21 10/23/22 10/21/22 History clopidogrel 75 mg tablet (Plavix) 75 mg PO QAM 05/05/21 10/20/22 10/17/22 History aspirin 81 mg tablet,delayed 81 mg PO DAILY 10/19/21 10/20/22 10/20/22 History release rosuvastatin 40 mg tablet 40 mg PO DAILY 10/19/21 10/20/22 10/21/22 History isosorbide mononitrate 30 mg 30 mg PO DAILY Blood Pressure #30 02/23/22 10/20/22 10/22/22 Rx tablet,extended release 24 hr tabs metoprolol tartrate 25 mg tablet 25 mg PO BID #180 tabs 06/14/22 10/20/22 10/23/22 Rx Allergies Allergy/AdvReac Type Severity Reaction Status Date / Time atorvastatin Allergy NA Verified 10/23/22 07:10 simvastatin Allergy NA Verified 10/23/22 07:10 PFSH Acute PFSH: Medical History Anxiety Arrhythmia Atherosclerotic heart disease of [place] coronary artery with other forms of angina pectoris EKG from 07/05/2020 EKG revealed bradycardia with a rate of [address]. [address]-T change Atherosclerotic heart disease of [place] coronary artery with unstable angina pec toris Atypical chest pain CAD (coronary artery disease) Chronic back pain Chronic prostatitis Depression GERD (gastroesophageal reflux disease) Hyperlipidemia Hypertension Urolithiasis Surgical History H/O heart artery stent total of 5 stents H/O laminectomy H/O shoulder surgery History of esophagogastroduodenoscopy (EGD) Hx of colonoscopy Family History Mother , 62 CAD (coronary artery disease) Father , at age 91 No problems noted. Social History Smoking and tobacco status: never smoked Alcohol intake: never Adopted: No Caregiver/support person: No Lives independently: No Household members: spouse Marital status: Current occupational status: retired Current gender identity: Male Vitals/I&O/Wt Last Vital Signs Temp 97.1 F L 10/23/22 07:12 Pulse 72 10/23/22 07:12 Resp 18 10/23/22 07:12 BP 150/90 10/23/22 07:12 Pulse Ox 97 10/23/22 07:12 O2 Del Method 10/23/22 07:19 A&P Assessment and plan (1) Right inguinal hernia: Plan Laparoscopic right inguinal hernia repair with mesh The risks and benefits of the procedure, including but not limited to, bleeding, infection, mesh infection requiring mesh excision antibiotic therapy and repeat surgery, damage surrounding structures, orchiectomy, conversion to an open procedure, scar, numbness, pain, and/or recurrence were explained to the patient.? Patient is understanding of the risks and wishes to proceed. Attestations Medical Necessity Statement*: HOME Coding Level of Care Code Acute Code for Chg Fwd Diagnoses Right inguinal hernia K40.90
[2022-10-23] MEDS: ceFAZolin 2,000 MG in sodium chloride 0.9% (plus) 50 ML 100 MG IV (08:04)
[2022-10-23] MEDS: lidocaine-epi 2% 20 mL INJ 6 ML INJECTION (08:52)
--- NOTE | 2022-10-23 09:00 | P.ANESASSM_ITS ---
Pre-Anesthetic Assessment Height/Weight: Height 1.73 m Weight 74.843 kg Temp Pulse Resp BP Pulse Ox O2 Del Method 97.1 F L 72 18 150/90 97 10/23/22 07:12 10/23/22 07:12 10/23/22 07:12 10/23/22 07:12 10/23/22 07:12 10/23/22 07:19 Preop Diagnosis: Right inguinal hernia Operation Date: 10/23/22 08:25 Proposed Procedures p lap right inguinal hernia w mesh [id number], K40.90(Right) - Maico Hinds DO Familial anesthetic complications: none Was Beta Tani taken within 24 hours: Yes Was Clonidine taken within 24 hours: N/A Last intake: Intake Last Liquid Date 10/22/22 Last Liquid Time 19:00 Last Solid Date 10/22/22 Last Solid Time 12:00 Social No alcohol and No tobacco Exam alert, oriented x 3, clear to auscultation bilaterally and regular rate & rhythm Airway Submandibular: within normal limits Cervical ROM: within normal limits Mallampati: Class II Dentition: full CV/HEM Coronary Artery Disease (stent) and Hypertension GI Gastroesophageal Reflux Disease Metabolic Hyperlipidemia Neuropsych Anxiety and Depression Anesthetic Plan ASA status: 2 Anesthesia: General Medications/Allergies Home Medications Medication Instructions Recorded Confirmed Last Taken Type multivitamin (Daily Multi-Vitamin 1 tab PO QAM 06/02/20 10/20/22 10/22/22 History tablet) nitroglycerin 0.4 mg sublingual 0.4 mg sublingual Q5M PRN chest 11/02/20 10/23/22 Unknown Rx tablet pain 30 days #30 tabs alprazolam 0.25 mg tablet 0.25 mg PO TID PRN Anxiety 05/05/21 10/23/22 10/21/22 History clopidogrel 75 mg tablet (Plavix) 75 mg PO QAM 05/05/21 10/20/22 10/17/22 History aspirin 81 mg tablet,delayed 81 mg PO DAILY 10/19/21 10/20/22 10/20/22 History release rosuvastatin 40 mg tablet 40 mg PO DAILY 10/19/21 10/20/22 10/21/22 History isosorbide mononitrate 30 mg 30 mg PO DAILY Blood Pressure #30 02/23/22 10/20/22 10/22/22 Rx tablet,extended release 24 hr tabs metoprolol tartrate 25 mg tablet 25 mg PO BID #180 tabs 06/14/22 10/20/22 10/23/22 Rx Allergies Allergy/AdvReac Type Severity Reaction Status Date / Time atorvastatin Allergy NA Verified 10/23/22 07:10 simvastatin Allergy NA Verified 10/23/22 07:10 Current Medications Generic Name Dose Route Start Last Admin Trade Name Freq PRN Reason Stop Dose Admin Sodium Chloride 1,000 mls @ 30 mls/hr 10/23/22 07:15 10/23/22 07:18 Sodium Chloride 0.9% IV 10/24/22 07:14 30 mls/hr .Q24H ALEJANDRA Administration PFSH Anesthesia Medical History Anxiety Arrhythmia Atherosclerotic heart disease of [place] coronary artery with other forms of angina pectoris EKG from 07/05/2020 EKG revealed bradycardia with a rate of [address]. [address]-T change Atherosclerotic heart disease of [place] coronary artery with unstable angina pectoris Atypical chest pain CAD (coronary artery disease) Chronic back pain Chronic prostatitis Depression GERD (gastroesophageal reflux disease) Hyperlipidemia Hypertension Urolithiasis Surgical History H/O heart artery stent total of 5 stents H/O laminectomy H/O shoulder surgery History of esophagogastroduodenoscopy (EGD) Hx of colonoscopy Family History Mother , 62 CAD (coronary artery disease) Father , at age 91 No problems noted. Social History Smoking and tobacco status: never smoked Alcohol intake: never Adopted: No Caregiver/support person: No Lives independently: No Household members: spouse Marital status: Current occupational status: retired Current gender identity: Male Data Anesthesia Cardiac Studies: Sestamibi Stress Test (Cardiology) 03/15
--- NOTE | 2022-10-23 09:01 | PM.OP ---
Operative Report Date of procedure: October 23, 2022 Pre-op diagnosis: Preop Diagnosis Right inguinal hernia Post-op diagnosis: other (Indirect right inguinal hernia) Procedure done: Laparoscopic repair of right inguinal hernia with mesh Implants: Extra-large right 3D max Bard mesh Specimens removed/disposition: None Surgeon: Dr. Maico Hinds DO Anesthesia: General Estimated blood loss (mL): 5 Complications: None apparent Brief History: This very pleasant 67-year-old gentleman who presented to my office with a right inguinal hernia. Laparoscopic repair with mesh was indicated. The risks and benefits were explained and documented. Procedure: Patient was wheeled into the operative room and placed on the OR table in a supine position. Abdomen was inspected prepped and draped in usual sterile fashion. Time-out was performed and all present were in agreement. A 15 blade scalpel was used to make 1.2 centimeter incision infraumbilically. Combination of sharp and blunt dissection was performed down to the anterior rectus sheath which was opened sharply. The dissecting balloon was then inserted into the space of Retzius and blown up. We put the camera into the port and identified that we were in the correct space. I then placed 2 5 millimeter trocars suprapubically in the midline. I then used endokitners to bluntly dissect in the space of Retzius out laterally. An indirect inguinal hernia was identified on the right. Blunt dissection was performed to dissect down the hernia sac until the vas deferens dove medially. An extra-large right inguinal mesh was then placed into the space of Retzius. The mesh was unrolled and tacked once medially at the pubic bone. The mesh laid out nicely over the spermatic cord. There was a small hole in the peritoneum of the hernia sac which was closed with the clip stencil cutter machine. I watched the hernia sac remained in place as insufflation was removed. Incisions were closed with 4-0 Monocryl in a subcuticular interrupted fashion. Skin glue was applied. Patient tolerated the procedure well.
[2022-10-23] MEDS: ondansetron 2 mg/ML SDV 2 mL 4 MG IVP ×3 (09:22→10:32)
[2022-10-23] MEDS: HYDROmorphone 1 mg/mL INJ 1 mL 0.25 MG IVP (09:32)
[2022-10-23] MEDS: fentaNYL 50 mcg/mL INJ 2mL IVP (09:47)
[2022-10-23] MEDS: scopolamine 1.5 Patch 1 PATCH TRANSDERMA (10:20)
[2022-10-23] MEDS: TRAMadol 50 mg Tablet 100 MG PO (10:31)
--- NOTE | 2022-10-23 15:50 | ANE.PACU2 ---
Inpatient post-anesthesia follow up: Airway intact: Yes Vital signs: Temperature 97.3 F Pulse Rate 65 Respiratory Rate 18 Blood Pressure 120/60 Pulse Oximetry 97 Oxygen Delivery Me thod Room Air Oxygen Flow Rate 6 Fraction of Inspir ed Oxygen Hydration adequate: Yes Nausea and vomiting: No Pain level: 3 Mental status: Baseline
== END 2022-10-23 11:45 | disposition home or self-care (01) ==
PROVIDERS: PCP Family Medicine; Visit Provider Surgery
PROC: (CPT 49650; principal; 2022-10-23 08:15)
DX: K40.90 Unilateral inguinal hernia, without obstruction or gangrene, not specified as recurrent (principal); I25.10 Atherosclerotic heart disease of native coronary artery without angina pectoris; Z95.5 Presence of coronary angioplasty implant and graft; I10 Essential (primary) hypertension; K21.9 Gastro-esophageal reflux disease without esophagitis; E78.5 Hyperlipidemia, unspecified; F41.9 Anxiety disorder, unspecified; F32.A Depression, unspecified; Z79.82 Long term (current) use of aspirin
CPT/HCPCS: 49650; 51702; 96374; 96375; 99284; A4216; C1781; J0690; J1100; J1170; J2250; J2370; J2405; J2704; J2710; J2765; J3010; J3490; J7030

== ENCOUNTER 2022-10-23 14:24 | Emergency (ER) | payer MEDICARE, OTHER, SELFPAY ==
[2022-10-23 14:35] VITALS: RESP 16
--- NOTE | 2022-10-23 15:39 | ED_ITS ---
HPI - Abdominal Pain General: Chief Complaint: Urogenital-Male Stated Complaint: surg this morn/cant urinate Time Seen by Provider: 10/23/22 15:17 Source: patient Mode of arrival: ambulatory Limitations: no limitations History of Present Illness: Patient is a 67-year-old male presents to ED today with a complaint of abdominal pain and acute urinary retention. Patient underwent right inguinal hernia repair by Dr. Hinds earlier this morning. He states he was discharged the same day. He states he never was required to urinate post surgery prior to discharge from the hospital. He states when he got home he realized he could not urinate on his own. He states last urination was somewhere around 9 AM this morning. He states he was prescribed tramadol for his pain and does not feel like this is controlling his discomfort. MD elicited complaint: abdominal pain and other (urinary retention) Pertinent past history: none Onset (ago): hour(s) Pain Consistency: constant Location: Groin Severity: severe Quality: sharp Radiation: none Migration to: no migration Exacerbating factors: movement Relieving factors: nothing Associated Symptoms: Reports nausea; Denies chills, dysuria, fever(s) and vomiting Review of Systems Const: Denies: fever(s), chills, body aches, fatigue or malaise Card: Denies: chest pain Resp: Denies: dyspnea GI: Reports: abdominal pain and nausea; Denies: vomiting : Reports: difficulty urinating (urinary retention); Denies: flank pain, dysuria, urinary frequency, urinary urgency or urinary hesitancy Musc: Denies: neck pain, back pain, extremity pain or joint pain Skin/Breast: Denies: rash Neuro: Denies: headache(s), numbness in extremities, weakness in extremities or sensory changes [facility] ED PFSH: Medical History Anxiety Arrhythmia Atherosclerotic heart disease of [place] coronary artery with other forms of angina pectoris EKG from 07/05/2020 EKG revealed bradycardia with a rate of [address]-T change Atherosclerotic heart disease of [place] coronary artery with unstable angina pectoris Atypical chest pain CAD (coronary artery disease) Chronic back pain Chronic prostatitis Depression GERD (gastroesophageal reflux disease) Hyperlipidemia Hypertension Urolithiasis Surgical History H/O heart artery stent total of 5 stents H/O laminectomy H/O shoulder surgery History of esophagogastroduodenoscopy (EGD) Hx of colonoscopy Family History Mother , 62 CAD (coronary artery disease) Father , at age 91 No problems noted. Social History Smoking and tobacco status: never smoked Alcohol intake: never Adopted: No Caregiver/support person: No Lives independently: No Household members: spouse Marital status: Current occupational status: retired Current gender identity: Male Physical Exam Const: COMMON NORMALS: no acute distress, average body habitus, patient oriented x3, no limitations, healthy appearing, alert and well nourished GENERAL APPEARANCE: cooperative ORIENTATION/CONSCIOUSNESS: Yes awake, Yes oriented to person, Yes oriented to place and Yes oriented to time Resp: COMMON NORMALS: normal respiratory effort and clear to auscultation bilaterally AUSCULTATION: clear to auscultation bilaterally Cardio: COMMON NORMALS: regular rate and regular rhythm RATE: regular rate RHYTHM: regular rhythm GI: INSPECTION: Yes incision (trocar incisions) PALPATION: Yes Other GI palpation findings present (tenderness over R inguinal hernia site) : OTHER: 800ml urine out with de souza insertion; no blood Neuro: COMMON NORMALS: patient oriented x3 SENSORIUM/ORIENTATION: Yes alert, Yes oriented to person, Yes oriented to place and Yes oriented to time Course Consultations: Consultation #1: Dr. Hinds-does not recommend any intervention/imaging from our end other than treating pain and leaving in a De Souza for the next 24-48 hours Vital Signs: Vital signs: Vital Signs Temperature 97.9 F 10/23/22 17:28 Pulse Rate 77 10/23/22 17:28 Respiratory Rate 14 10/23/22 17:28 Blood Pressure 113/67 10/23/22 17:28 Pulse Oximetry 95 10/23/22 17:28 Oxygen Delivery Me thod 10/23/22 17:28 MDM - Abdominal Pain Medical Decision Making Patient here with abdominal pain related to his recent right inguinal hernia surgery that was performed by Dr. Hinds earlier this morning as well as acute urinary retention. De Souza was placed by RN and 800 mL of urine was immediately evacuated from his bladder. Patient states he does feel better in regards to this but was still having pain around the surgical site. I spoke to patient's surgeon stated there was no need for labs/imaging at this point. I was able to treat his pain/nausea successfully here. He states he has Hydrocodone left over at home that he can take if the Tramadol does not control his discomfort. His urinary retention secondary from surgery/anesthesia/opiate use should be self- limiting and resolve over the next 24 to 48 hours. I recommend he follow-up with his primary care provider so they can remove De Souza. If they cannot do this then patient can return to the emergency department for this service. He will need voiding trial following removal. Discharge Plan Discharge Patient Disposition: Home Clinical Impression: Acute urinary retention, Postoperative abdominal pain Condition: Stable Prescriptions: New ondansetron 4 mg tablet,disintegrating 4 mg PO Q8H PRN (Reason: nausea and vomiting) Qty: 14 0RF No Action isosorbide mononitrate 30 mg tablet extended release 24 hr 30 mg PO DAILY Qty: 30 11RF nitroglycerin 0.4 mg tablet, sublingual 0.4 mg sublingual Q5M PRN (Reason: chest pain) 30 Days Qty: 30 3RF Rx Instructions: until response; do not exceed 3 doses per episode metoprolol tartrate 25 mg tablet 25 mg PO BID Qty: 180 3RF alprazolam 0.25 mg tablet 0.25 mg PO TID PRN (Reason: Anxiety) clopidogrel [Plavix] 75 mg tablet 75 mg PO QAM Hold Instructions: Resume on 10/26/22. multivitamin [Daily Multi-Vitamin] Tablet 1 tab PO QAM rosuvastatin 40 mg tablet 40 mg PO DAILY aspirin 81 mg tablet,delayed release (DR/EC) 81 mg PO DAILY DOK 100 mg capsule 100 mg PO BID Qty: 14 0RF tramadol 50 mg tablet 100 mg PO Q6H PRN (Reason: pain) Qty: 40 0RF Rx Instructions: May take one tab at a time Discharge Orders: Discharge ED (Routine); Ordered 10/23/22 Ordered By: Ira Corado Referrals: Sony Swift MD [Primary Care Provider] - Patient Instructions: Abdominal Pain (ED), Opioid Safety, Pain Management Activity Restrictions/Additional Instructions: As you have mentioned you have some leftover hydrocodone at home that you feel comfortable taking. You may take 1 tablet every 4-6 hours as needed for pain. I have given you a prescription for nausea medication. You need to follow-up with Dr. Swift's office in the next 24 to 48 hours so they can remove De Souza catheter. If they are unable to do this you may return to the emergency department for this service. After removal you will need to prove that you can void/urinate on your own. 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
[2022-10-23] MEDS: HYDROmorphone 1 mg/mL INJ 1 mL 0.4 MG IVP ×2 (16:19→17:10)
[2022-10-23] MEDS: ondansetron 2 mg/ML SDV 2 mL 4 MG IVP (16:19)
[2022-10-23] MEDS: metoclopramide 5 mg/mL SDV 2 mL 10 MG IVP (16:50)
[2022-10-23 17:10] VITALS: RESP 15
[2022-10-23 17:28] VITALS: BP 113/67; PULSE 77; RESP 14; TEMP 36.6; O2SAT 95
== END 2022-10-23 17:26 | disposition home or self-care (01) ==
PROVIDERS: Emergency Provider Physician Assistant; PCP Family Medicine
DX: R33.9 Retention of urine, unspecified (principal); G89.18 Other acute postprocedural pain; R10.9 Unspecified abdominal pain; Z79.82 Long term (current) use of aspirin; Z79.02 Long term (current) use of antithrombotics/antiplatelets; I25.10 Atherosclerotic heart disease of native coronary artery without angina pectoris; E78.5 Hyperlipidemia, unspecified; I10 Essential (primary) hypertension
CPT/HCPCS: 51702; 96374; 96375; 99284; J1170; J2405; J2765

== ENCOUNTER 2022-10-24 13:32 | Inpatient (IN) | payer MEDICARE, OTHER, SELFPAY ==
[2022-10-24 13:50] VITALS: BP 140/72; PULSE 63; RESP 16; TEMP 36.2; O2SAT 96; BMI 25.0
[2022-10-24 14:27] VITALS: BP 136/71; PULSE 66; O2SAT 98
--- NOTE | 2022-10-24 14:36 | W.ED.ABDPA2 ---
HPI - Abdominal Pain General: Chief Complaint: Abdominal Pain Stated Complaint: ABD PAIN Time Seen by Provider: 10/24/22 14:03 Source: patient and family Mode of arrival: ambulatory Limitations: no limitations History of Present Illness: Gentleman returns to the emergency department because of increasing abdominal pain over the past 12 hours. He had a outpatient laparoscopic right inguinal hernia repair yesterday. He did have postoperative urinary retention had a Dubose catheter placed last evening but today he is here because he had increasing pain abdominal distention. He states that he has not had a bowel movement today. He states his Dubose catheter appears to be working. He has had some oral intake but he is hesitant to do any significant oral intake because he thinks it will make him more distended. He denies any concomitant chest pain, shortness of breath fevers etc. He is taking his usual medications today to include his Plavix. MD elicited complaint: abdominal pain Location: Diffuse Severity: moderate Quality: cramping and fullness Context: recent surgery/procedure Associated Symptoms: Denies chills, dysuria, fever(s) and syncope Review of Systems Const: Denies: fever(s) or chills ENMT: Denies: throat pain or odynophagia Card: Denies: chest pain, palpitations, irregular heart rhythm, lightheadedness, syncope or pre-syncope Resp: Denies: dyspnea, productive cough or non-productive cough GI: Reports: abdominal pain : Reports: difficulty urinating (Dubose placed); Denies: flank pain, dysuria or urinary frequency Musc: Denies: neck pain, back pain, extremity pain or extremity swelling Skin/Breast: Denies: rash Neuro: Denies: headache(s), numbness in extremities or weakness in extremities PFSH ED PFSH: Medical History Anxiety Arrhythmia Atherosclerotic heart disease of [place] coronary artery with other forms of angina pectoris EKG from 07/05/2020 EKG revealed bradycardia with a rate of [address]. [address]-T change Atherosclerotic heart disease of [place] coronary artery with unstable angina pectoris Atypical chest pain CAD (coronary artery disease) Chronic back pain Chronic prostatitis Depression GERD (gastroesophageal reflux disease) Hyperlipidemia Hypertension Urolithiasis Surgical History H/O heart artery stent total of 5 stents H/O laminectomy H/O shoulder surgery History of esophagogastroduodenoscopy (EGD) Hx of colonoscopy Family History Mother , 62 CAD (coronary artery disease) Father , at age 91 No problems noted. Social History Smoking and tobacco status: never smoked Alcohol intake: never Adopted: No Caregiver/support person: No Lives independently: No Household members: spouse Marital status: Current occupational status: retired Current gender identity: Male Physical Exam Narrative: EXAM NARRATIVE: But appears to be slightly uncomfortable. He answers questions appropriately. Const: COMMON NORMALS: average body habitus, patient oriented x3 and alert HENMT: COMMON NORMALS: normocephalic, Normal nasal mucous membranes and turbinates present, moist oral mucous membranes and oropharynx normal HEAD & SCALP: normocephalic NOSE: Normal nasal mucous membranes and turbinates present Eye: COMMON NORMALS: Equal, round and reactive pupils present and EOMs intact bilaterally PUPIL: Yes Equal, round and reactive pupils present Neck/C-Spine: COMMON NORMALS: full ROM and no lymphadenopathy Chest: COMMONS NORMALS: normal inspection of the chest Resp: COMMON NORMALS: normal respiratory effort, No use of accessory muscles and clear to auscultation bilaterally EFFORT & INSPECTION: Yes able to speak in complete sentences AUSCULTATION: clear to auscultation bilaterally Cardio: COMMON NORMALS: regular rate, regular rhythm, No murmurs present (Cardio) and Peripheral pulses 2+ throughout RATE: regular rate RHYTHM: regular rhythm PERIPHERAL PULSES: Peripheral pulses 2+ throughout GI: OTHER: His abdominal examination reveals distention of the abdomen with generalized tenderness to touch. He has laparoscopic surgical scars in usual locations without any evidence of drainage. He has expected small amounts of ecchymosis around each of those incision sites. Bowel sounds are intermittent. Voluntary guarding but no rebound. Is a a Dubose in situ draining clear urine. : COMMON NORMALS: Yes no CVA tenderness BLADDER/KIDNEY EXAM: Yes catheter in place and Yes no CVA tenderness Back/Pelvis: COMMON NORMALS: no CVA tenderness, thoracic and lumbar spine normal to inspection and straight leg raise negative bilaterally Extremity: COMMON NORMALS: normal to inspection, full ROM, no calf tenderness and no pedal edema Neuro: COMMON NORMALS: patient oriented x3, moves all extremities and no focal motor deficits SENSORIUM/ORIENTATION: Yes alert Psych: COMMON NORMALS: mental status grossly normal Skin: COMMON NORMALS: no rashes or lesions noted GENERAL SKIN EXAM: no rashes or lesions noted Course Reevaluation(s): Reevaluation #1: Patient remained stable. I discussed current findings and recommendations for overnight observation with n.p.o., hydration etc. He voiced understanding and agreed to proceed. Time: 17:23 Consultations: Consultation #1: Discussed with Dr. Hinds informed him of the patient's presence and my plan to go ahead and work him up for possible intra-abdominal process. Time: 14:43 Consultation #2: Discussed with Dr. Hinds again and reviewed CT scan report. He agrees to place the patient in observation status and reevaluate. [facility] Time: 17:23 Vital Signs: Vital signs: Vital Signs Temperature 97.1 F L 10/24/22 13:50 Pulse Rate 78 10/24/22 17:00 Respiratory Rate 16 10/24/22 13:50 Blood Pressure 134/66 10/24/22 17:00 Pulse Oximetry 92 10/24/22 17:00 Oxygen Delivery Me thod 10/24/22 13:50 MDM - Abdominal Pain Medical Decision Making This patient 24 hours postop from a laparoscopic inguinal hernia repair with mesh placement. His initial evaluation in the emergency department was within several hours postoperative Moisés and required catheter placement because of urinary retention. Subsequently he developed increasing abdominal distention and discomfort and the feelings of fullness without fever etc. His evaluation in the emergency department revealed findings of abdominal distention and discomfort and tenderness to palpation with some voluntary guarding. Subsequent imaging also revealed proximal small bowel dilatation fluid-filled stomach and other findings suggestive of possible small bowel obstruction. Attending surgeon was consulted and discussed current findings and he agreed to place the patient in the hospital for further evaluation, bowel rest, IV hydration etc. Differential Diagnosis Likely small bowel obstruction Medical Records I reviewed the patient's medical records. Lab Data I reviewed the patient's lab results. 10/24/22 15:00 10/24/22 15:00 Labs/Radiology: Radiology Impressions Abdomen/Pelvis CT 10/24/22 14:45 IMPRESSION: Small bowel is dilated with collapsed small bowel loops in the right pelvis. Definite transition point not seen. Findings are suggestive of at least partial small bowel obstruction. Pneumoperitoneum representing postoperative changes. COMMENTS: Consistent with the [place]'s Incidental Findings Committee white paper (J Am Kirk Radiol 2018): Any incidental renal lesion less than 1 cm or classified as too small to characterize, or any incidental cystic renal lesion characterized as simple-appearing, is likely benign. No follow-up imaging is recommended for these lesions per consensus recommendations based on imaging criteria. Laboratory Results WBC 11.0 10^3/uL (4.0-10.0) H 10/24/22 15:00 RBC 5.30 10^6/uL (4.1-5.3) 10/24/22 15:00 Hgb 15.6 g/dL (11.7-16.6) 10/24/22 15:00 Hct 47.5 % (42.0-52.0) 10/24/22 15:00 MCV 89.6 fl (80-94) 10/24/22 15:00 MCH 29.4 pg (28.0-34.0) 10/24/22 15:00 MCHC 32.8 g/dL (30.0-36.0) 10/24/22 15:00 RDW 13.6 % (12.1-15.1) 10/24/22 15:00 Plt Count 117 10^3/cmm (130-400) L 10/24/22 15:00 MPV 8.9 fL (7.4-10.4) 10/24/22 15:00 Neut % (Auto) 85.2 % 10/24/22 15:00 Lymph % (Auto) 6.3 % 10/24/22 15:00 [place] % (Auto) 7.8 % 10/24/22 15:00 Eos % (Auto) 0.1 % 10/24/22 15:00 Baso % (Auto) 0.3 % 10/24/22 15:00 Neut # (Auto) 9.34 10^3/uL (1.8-7.7) H 10/24/22 15:00 Lymph # (Auto) 0.7 10^3/uL (0.8-4.8) L 10/24/22 15:00 [place] # (Auto) 0.9 10^3/uL (0.2-0.9) 10/24/22 15:00 Eos # (Auto) 0.0 10^3/uL (0.0-0.8) 10/24/22 15:00 Baso # (Auto) 0.0 10^3/uL (0.0-0.1) 10/24/22 15:00 Nucleated RBC % (auto) 0 % 10/24/22 15:00 Nucleated RBCs # 0.0 /100WBC 10/24/22 15:00 Sodium 138 mmol/L (136-145) 10/24/22 15:00 Potassium 4.0 mmol/L (3.5-5.1) 10/24/22 15:00 Chloride 100 mmol/L (98-107) 10/24/22 15:00 Carbon Dioxide 27 mmol/L (22-29) 10/24/22 15:00 Anion Gap 15.0 (5-19) 10/24/22 15:00 BUN 14 mg/dL (8-23) 10/24/22 15:00 Creatinine 1.1 mg/dL (0.7-1.2) 10/24/22 15:00 GFR Calculation 67.2 mL/min (90-130) L 10/24/22 15:00 Glucose 121 mg/dL (65-115) H 10/24/22 15:00 Calculated Osmolality 288 mOsm/kg (285-295) 10/24/22 15:00 Calcium 9.3 mg/dL (8.5-10.5) 10/24/22 15:00 Total Bilirubin 2.8 mg/dL (0.15-1.2) H 10/24/22 15:00 AST 20 U/L (0-40) 10/24/22 15:00 ALT 24 U/L (0-41) 10/24/22 15:00 Alkaline Phosphatase 52 U/L (40-130) 10/24/22 15:00 Total Protein 7.4 g/dL (6.6-8.7) 10/24/22 15:00 Albumin 4.4 g/dL (3.5-5.2) 10/24/22 15:00 Globulin 3.0 g/dL (1.3-4.6) 10/24/22 15:00 Discharge Plan Discharge Patient Disposition: Placed in Observation Clinical Impression: Small bowel obstruction, Acute urinary retention, Postoperative abdominal pain Condition: Stable Prescriptions: No Action isosorbide mononitrate 30 mg tablet extended release 24 hr 30 mg PO DAILY Qty: 30 11RF nitroglycerin 0.4 mg tablet, sublingual 0.4 mg sublingual Q5M PRN (Reason: chest pain) 30 Days Qty: 30 3RF Rx Instructions: until response; do not exceed 3 doses per episode metoprolol tartrate 25 mg tablet 25 mg PO BID Qty: 180 3RF alprazolam 0.25 mg tablet 0.25 mg PO TID PRN (Reason: Anxiety) clopidogrel [Plavix] 75 mg tablet 75 mg PO QAM Hold Instructions: Resume on 10/26/22. multivitamin [Daily Multi-Vitamin] Tablet 1 tab PO QAM rosuvastatin 40 mg tablet 40 mg PO DAILY aspirin 81 mg tablet,delayed release (DR/EC) 81 mg PO DAILY tramadol 50 mg tablet 100 mg PO Q6H PRN (Reason: pain) Qty: 40 0RF Rx Instructions: May take one tab at a time ondansetron 4 mg tablet,disintegrating 4 mg PO Q8H PRN (Reason: nausea and vomiting) Qty: 14 0RF Referrals: Sony Swift MD [Primary Care Provider] - Coding Level of Care Code ED Emergency Department Coordinator for Levi Daniel
--- NOTE | 2022-10-24 14:45 | CTR_ITS ---
PROCEDURE INFORMATION: Exam: CT Abdomen And Pelvis With Contrast Exam date and time: 10/24/2022 4:14 PM Age: 67 years old Clinical indication: Abdominal pain; Generalized; Prior surgery; Surgery date: Post-operative (0-2 days); Surgery type: Hernia repair; Additional info: Post op day1 lap hernia-abd distention pain TECHNIQUE: Imaging protocol: Computed tomography of the abdomen and pelvis with contrast. Contrast material: OMNI 350; Contrast volume: 100 ml; Contrast route: INTRAVENOUS (IV); REPORTING DATA: Count of CT and Cardiac NM exams in prior 12 months: This patient has received 0 known CTs and 0 known cardiac nuclear medicine studies in the 12 months prior to the current study. COMPARISON: CT abdomen pelvis w con* [id number] 10/19/2021 10:10 PM RADIATION DOSE METRICS: Total DLP (mGy-cm): 694.93 FINDINGS: Tubes, catheters and devices: Prostate is enlarged measuring 4.8 x 6.2 cm with Dubose's catheter in place. Liver: Normal. No mass. Gallbladder and bile ducts: Normal. No calcified stones. No ductal dilation. Pancreas: Normal. No ductal dilation. Spleen: Normal. No splenomegaly. Adrenal glands: Normal. No mass. Kidneys and ureters: See Soft tissues finding. Stomach and bowel: Small bowel is dilated. A small segment of collapsed small bowel in the right lower quadrant. A definite transition point is not seen. Appendix: No evidence of appendicitis. Intraperitoneal space: Unremarkable. No free air. No significant fluid collection. Vasculature: Unremarkable. No abdominal aortic aneurysm. Lymph nodes: Unremarkable. No enlarged lymph nodes. Urinary bladder: Unremarkable as visualized. Reproductive: Unremarkable as visualized. Bones/joints: Unremarkable. No acute fracture. Soft tissues: Fluid in the right inguinal canal. Air in the left inguinal canal and bilateral scrotum may represent postsurgical changes. Air in subcutaneous tissues of the anterior abdominal wall. 6.7 cm cyst in the upper pole of the right kidney and 10 cm cyst in the upper pole of left kidney. Other findings: Postoperative changes in the abdomen with foci of air in the abdomen. CT/CT abdomen pelvis w con* [id number] IMPRESSION: Small bowel is dilated with collapsed small bowel loops in the right pelvis. Definite transition point not seen. Findings are suggestive of at least partial small bowel obstruction. Pneumoperitoneum representing postoperative changes. COMMENTS: Consistent with the [employer] [employer]'s Incidental Findings Committee white paper (J Am Kirk Radiol 2018): Any incidental renal lesion less than 1 cm or classified as too small to characterize, or any incidental cystic renal lesion characterized as simple-appearing, is likely benign. No follow-up imaging is recommended for these lesions per consensus recommendations based on imaging criteria.
[2022-10-24] MEDS: sodium chloride 0.9% 500 ML IV (15:11)
[2022-10-24] MEDS: ondansetron 2 mg/ML SDV 2 mL 4 MG IVP ×2 (15:11→17:45)
[2022-10-24 15:17] LABS: Basophils % 0.3 %; Eosinophils % 0.1 %; Hematocrit 47.5 % (42.0-52.0); Hemoglobin 15.6 g/dL (11.7-16.6); Lymphocytes # 0.7 10^3/uL (0.8-4.8); Lymphocytes % 6.3 %; Mean Corpuscular HGB Conc 32.8 g/dL (30.0-36.0); Mean Corpuscular Hemoglobin 29.4 pg (28.0-34.0); Mean Corpuscular Volume 89.6 fl (80-94); Mean Platelet Volume 8.9 fL (7.4-10.4); Monocytes # 0.9 10^3/uL (0.2-0.9); Monocytes % 7.8 %; Neutrophils # 9.34 10^3/uL (1.8-7.7); Neutrophils % 85.2 %; Nucleated Red Blood Cells % 0 %; Platelet Count 117 10^3/cmm (130-400); Red Cell Distribution Width 13.6 % (12.1-15.1)
[2022-10-24 15:33] LABS: Alanine Aminotransferase 24 U/L (0-41); Albumin Level 4.4 g/dL (3.5-5.2); Alkaline Phosphatase 52 U/L (40-130); Aspartate Amino Transferase 20 U/L (0-40); Blood Urea Nitrogen 14 mg/dL (8-23); Calcium 9.3 mg/dL (8.5-10.5); Carbon Dioxide 27 mmol/L (22-29); Chloride 100 mmol/L (98-107); Glomerular Filtration Rate 67.2 mL/min (90-130); Glucose 121 mg/dL (65-115); Osmolality Calculated 288 mOsm/kg (285-295); Sodium 138 mmol/L (136-145); Total Bilirubin 2.8 mg/dL (0.15-1.2); Total Protein 7.4 g/dL (6.6-8.7)
[2022-10-24 16:00] VITALS: BP 131/68; PULSE 60; O2SAT 92
[2022-10-24 16:30] VITALS: BP 147/67; PULSE 72; O2SAT 92
[2022-10-24] MEDS: iohexol 350 mg/mL 500 mL Btl (per mL) IV (16:35)
[2022-10-24 17:00] VITALS: BP 134/66; PULSE 78; O2SAT 92
[2022-10-24] MEDS: sodium chloride 0.9% 1,000 ML 150 ML IV ×2 (17:44→22:02)
[2022-10-24 17:46] VITALS: RESP 16; O2SAT 94
[2022-10-24] MEDS: HYDROmorphone 1 mg/mL INJ 1 mL 0.5 MG IVP (17:46)
--- NOTE | 2022-10-24 19:29 | PC.NURSE ---
Dr. Hinds contacted for orders. Ordered to insert NG tube and place on low intermittent suction. Ordered Dilaudid 1 mg q3hr PRN for pain. Ordered Heparin 5,000 units q12 hours SQ.
[2022-10-24] MEDS: heparin 5,000 unit/mL INJ 1 mL 5000 UNIT SUBCUT (19:53)
--- NOTE | 2022-10-24 20:22 | XRR_ITS ---
PROCEDURE INFORMATION: Exam: XR Abdomen Exam date and time: 10/24/2022 7:37 PM Age: 67 years old Clinical indication: Device placement; Gi device; Nasogastric tube; Additional info: Confirm ng tube placement TECHNIQUE: Imaging protocol: Radiologic exam of the abdomen. Views: Frontal supine view of the abdomen. 1 View. COMPARISON: CT abdomen pelvis w con* [id number] 10/24/2022 4:14 PM FINDINGS: Tubes, catheters and devices: Nasogastric tube with its tip in the region of stomach. Air-filled dilated small bowel loops. Gastrointestinal tract: See Tubes, catheters and devices finding. Bones/joints: Unremarkable. XR/XR abdomen 1V* [id number] IMPRESSION: Dilated air-filled small bowel loops. Findings suggestive of at least partial small-bowel obstruction.
--- NOTE | 2022-10-24 20:30 | PC.NURSE ---
Patient rates abdominal pain 02/05. Patient refusing PRN Dilaudid stating I'm a lightweight and it will make me sick at my stomach.
--- NOTE | 2022-10-24 21:53 | PC.NURSE ---
Patient wanting to pull NG tube out. Patient educated on potential complications of removing NG tube. Patient states I just don't think I can do this. I can't stand it. Patient educated multiple times and verbalized understanding. Patient refusing narcotic medications stating that they make him feel weird and nauseated. Patient states that he takes Xanax at home for anxiety. Dr. Hinds notified. PRN Toradol and Ativan ordered.
[2022-10-24] MEDS: LORazepam 2 mg/mL INJ 1 mL IVP (22:02)
[2022-10-24] MEDS: ketorolac 30 mg/mL INJ IVP (22:02)
[2022-10-25] MEDS: sodium chloride 0.9% 1,000 ML 150 ML IV ×4 (04:39→23:25)
[2022-10-25] MEDS: heparin 5,000 unit/mL INJ 1 mL 5000 UNIT SUBCUT ×2 (08:14→20:36)
[2022-10-25 08:39] VITALS: BP 132/74; PULSE 75; RESP 17; TEMP 36.7; O2SAT 92
[2022-10-25] MEDS: LORazepam 2 mg/mL INJ 1 mL IVP ×2 (11:19→20:44)
[2022-10-25 12:00] VITALS: BP 149/78; PULSE 77; RESP 18; TEMP 36.7; O2SAT 94
--- NOTE | 2022-10-25 15:17 | P.HP_ITS ---
Providers/Chief Complaint Admitting Physician: Maico Hinds DO Primary Care Provider: Sony Swift MD Chief Complaint: ABD PAIN History of Present Illness Tom Peguero is a 67 year old male who underwent a laparoscopic repair of a right inguinal hernia with mesh on 10/25/2022. Postoperatively he was unable to void urine and had a de souza catheter placed in the ER. The next day he developed abdominal distension, nausea and abdominal pain. CT abdomen showed a PSBO withou a definite transition point. HIs pain is diffuse and dull. Nothing makes the pain better or worse. He had an NGT placed and now is symptoms are much improved. He reports that he is passing flatus. Review of Systems General: Reports: 10 or more systems reviewed and unremarkable except in HPI and below Medications/Allergies Home Medications Medication Instructions Recorded Confirmed Last Taken Type multivitamin (Daily Multi-Vitamin 1 tab PO QAM 06/02/20 10/24/22 10/24/22 History tablet) nitroglycerin 0.4 mg sublingual 0.4 mg sublingual Q5M PRN chest 11/02/20 10/24/22 Unknown Rx tablet pain 30 days #30 tabs alprazolam 0.25 mg tablet 0.25 mg PO TID PRN Anxiety 05/05/21 10/24/22 10/21/22 History clopidogrel 75 mg tablet (Plavix) 75 mg PO QAM 05/05/21 10/24/22 10/24/22 History aspirin 81 mg tablet,delayed 81 mg PO DAILY 10/19/21 10/24/22 10/24/22 History release rosuvastatin 40 mg tablet 40 mg PO DAILY 10/19/21 10/24/22 10/24/22 History isosorbide mononitrate 30 mg 30 mg PO DAILY Blood Pressure #30 02/23/22 10/24/22 10/24/22 Rx tablet,extended release 24 hr tabs metoprolol tartrate 25 mg tablet 25 mg PO BID #180 tabs 06/14/22 10/24/22 10/24/22 Rx ondansetron 4 mg disintegrating 4 mg PO Q8H PRN nausea and 10/23/22 10/24/22 Unknown Rx tablet vomiting #14 tabs tramadol 50 mg tablet 100 mg PO Q6H PRN pain #40 tabs 10/23/22 10/24/22 Unknown Rx Allergies Allergy/AdvReac Type Severity Reaction Status Date / Time atorvastatin Allergy NA Verified 10/24/22 14:19 morphine Allergy ADR-Nausea Verified 10/24/22 21:41 simvastatin Allergy NA Verified 10/24/22 14:19 PFSH Acute PFSH: Medical History Anxiety Arrhythmia Atherosclerotic heart disease of [place] coronary artery with other forms of angina pectoris EKG from 07/05/2020 EKG revealed bradycardia with a rate of 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 Social History Smoking and tobacco status: never smoked Alcohol intake: never Adopted: No Caregiver/support person: No Lives independently: No Household members: spouse Marital status: Current occupational status: retired Current gender identity: Male Vitals/I&O/Wt Last Vital Signs Temp 98.5 F 10/25/22 19:36 Pulse 78 10/25/22 19:36 Resp 17 10/25/22 19:36 BP 123/55 10/25/22 19:36 Pulse Ox 91 10/25/22 19:36 O2 Del Method 10/25/22 19:36 10/25/22 10/25/22 10/25/22 06:59 14:59 22:59 Intake Total 1732.5 / 2497.5 960 / 960 1000 / 1960 Output Total 1500 / 1500 800 / 800 Balance 232.5 / 997.5 960 / 960 200 / 1160 Weight last 48 hrs Weight 165 lb Weight 165 lb Physical Exam Narrative: General : Patient is well developed , no acute distres s, oriented x3 Hea d : Normal cephali c, a-traumatic. Ea rs : Pinnae and ex ternal canal are n ormal.? Hearing is normal.? Eyes : P ERRLA,? Sclera and injection are nor mal. No conjunctiv al discharge. Nose : Mucous membrane s are without eryt nicola. Throat : buc blake mucosa is norm al, gums are witho ut significant rec ession or hypertro phy. Lungs : Equal chest rise bilate rally, no use of a ccessory muscles, trachea is midline . Cor : Rate and r hythm are normal. ? Abdomen : Soft, mild D, appr tende r over incisions, no g/r Extremities : No edema, no cy anosis or clubbing , dorsalis pedis p ulses are present bilaterally, non-t marta to palpation of calves.? Upper extremities are n ormal bilaterally. Back : non-tender to palpation, no CVA tenderness. Ne uro : CN II - XII intact, Upper and lower extremities have equal and ful l strength Urinary Catheter Management: De Souza: Cath Placed During This Visit: yes, but has since been removed by the nurse Reason for Continuing Indwelling Catheter: Decision to DC Catheter Date Urinary Catheter Removed: 10/25/22 Time Urinary Catheter Discontinued: 18:15 Data 10/24/22 15:00 10/24/22 15:00 A&P Assessment and plan (1) Partial small bowel obstruction: (2) Acute urinary retention: Plan DC de souza DC NGT Clear liquid diet AM labs Attestations Medical Necessity Statement*: Patient requires at least one more night in the hospital for diet advancement until resolution of bowel obstruction Coding Level of Care Code Acute Code for Chg Fwd Diagnoses Partial small bowel obstruction K56.600 Acute urinary retention R33.8
[2022-10-25 16:00] VITALS: BP 139/70; PULSE 86; RESP 16; TEMP 37.2; O2SAT 91
[2022-10-25 19:36] VITALS: BP 123/55; PULSE 78; RESP 17; TEMP 36.9; O2SAT 91
[2022-10-25 23:52] VITALS: BP 118/68; PULSE 74; RESP 15; TEMP 37; O2SAT 92
[2022-10-26 03:50] VITALS: BP 134/75; PULSE 82; RESP 15; TEMP 36.9; O2SAT 92
--- NOTE | 2022-10-26 03:55 | PC.NURSE ---
Patient voided 275 ml. Post-void bladder scan shows 18 ml.
[2022-10-26 05:11] LABS: Basophils % 0.2 %; Eosinophils # 0.2 10^3/uL (0.0-0.8); Eosinophils % 3.6 %; Hematocrit 38.3 % (42.0-52.0); Hemoglobin 12.3 g/dL (11.7-16.6); Lymphocytes # 0.9 10^3/uL (0.8-4.8); Lymphocytes % 15.8 %; Mean Corpuscular HGB Conc 32.1 g/dL (30.0-36.0); Mean Corpuscular Volume 90.3 fl (80-94); Monocytes # 0.5 10^3/uL (0.2-0.9); Monocytes % 8.6 %; Neutrophils # 3.92 10^3/uL (1.8-7.7); Neutrophils % 71.4 %; Nucleated Red Blood Cells % 0 %; Platelet Count 114 10^3/cmm (130-400); Red Blood Count 4.24 10^6/uL (4.1-5.3); Red Cell Distribution Width 13.6 % (12.1-15.1); White Blood Count 5.5 10^3/uL (4.0-10.0)
[2022-10-26 05:36] LABS: Anion Gap 9.8 (5-19); Blood Urea Nitrogen 12 mg/dL (8-23); Calcium 7.9 mg/dL (8.5-10.5); Carbon Dioxide 25 mmol/L (22-29); Chloride 108 mmol/L (98-107); Glomerular Filtration Rate 84.7 mL/min (90-130); Glucose 102 mg/dL (65-115); Magnesium 2.2 mg/dL (1.7-2.3); Osmolality Calculated 288 mOsm/kg (285-295); Potassium 3.8 mmol/L (3.5-5.1); Sodium 139 mmol/L (136-145)
[2022-10-26 08:00] VITALS: BP 150/76; PULSE 77; RESP 16; TEMP 37; O2SAT 92
[2022-10-26] MEDS: heparin 5,000 unit/mL INJ 1 mL 5000 UNIT SUBCUT ×2 (08:14→20:50)
--- NOTE | 2022-10-26 10:48 | PC.CHAP ---
Pastoral Care Encounter/Spiritual Assessment Type of Contact [] Declined director speech visit [] Patient/Family/Request visit [] Outpatient visit [] Follow-up visit [] Physician referral [] Code/Alert [x] Routine visit [] Staff referral [] Actively dying [] Patient sleeping [] Family support [] [] Out of room [] Palliative care [] [x] Receiving care in room [] Pre-surgical visit [] Trauma [] Long length of stay [] ICU visit [] Other: Relational/Emotional Strength [x] Patient feels connected with others/family/visitors/staff [] Distress [] Loneliness/isolation [] Abandonment Spirituality of Patient [x] Person of Christin [] Attends Faith of their Christin [x] Believes in Prayer [] Reads Bible or Tenriism materials [] There are Spiritual issues to be addressed Cooker Soda Interventions [x] Prayer [x] Active listening [x] Non-anxious presence [x] Spiritual/emotional support [] Crisis/trauma care [x] Spiritual counseling [] Bereavement support [] Provided bereavement packet [] Provided Bible/devotional materials [] Provided toy/stuffed animal, coloring book to patient or family member [] Provided Communion [] Anointing/[place] [] Salvation [x] Completed spiritual assessment [] Other: Impact on Illness or Injury [] Angry [] Fearful [] Anxious [] Often cries [] Exhaustion [] Unable to work [] Unable to attend jehovah's witness [] Unable to walk/stand [] Unable to read [] Unable to drive [] Unable to eat/drink [] Unable to sleep [] Unable to be with family [] Patient intubated [] Other: Summary hurnee surgery had to back and repair lession feeling better has a good attitude well go home some rehab involved Time spent with patient 10 mins
--- NOTE | 2022-10-26 10:53 | PC.CHAP ---
Pastoral Care Encounter/Spiritual Assessment Type of Contact [] Declined tawer visit [] Patient/Family/Request visit [] Outpatient visit [] Follow-up visit [] Physician referral [] Code/Alert [x] Routine visit [] Staff referral [] Actively dying [] Patient sleeping [] Family support [] [] Out of room [] Palliative care [] [x] Receiving care in room [] Pre-surgical visit [] Trauma [] Long length of stay [] ICU visit [] Other: Relational/Emotional Strength [x] Patient feels connected with others/family/visitors/staff [] Distress [] Loneliness/isolation [] Abandonment Spirituality of Patient [x] Person of Christin [] Attends Mormon of their Christin [x] Believes in Prayer [] Reads Bible or Alevism materials [] There are Spiritual issues to be addressed Snuff Maker Interventions [x] Prayer [x] Active listening [x] Non-anxious presence [x] Spiritual/emotional support [] Crisis/trauma care [x] Spiritual counseling [] Bereavement support [] Provided bereavement packet [] Provided Bible/devotional materials [] Provided toy/stuffed animal, coloring book to patient or family member [] Provided Communion [] Anointing/[place] [] Salvation [x] Completed spiritual assessment [] Other: Impact on Illness or Injury [] Angry [] Fearful [] Anxious [] Often cries [] Exhaustion [] Unable to work [] Unable to attend evangelical [] Unable to walk/stand [] Unable to read [] Unable to drive [] Unable to eat/drink [] Unable to sleep [] Unable to be with family [] Patient intubated [] Other: Summary feeling better Time spent with patient 5mins
[2022-10-26 12:00] VITALS: BP 175/82; PULSE 76; RESP 16; TEMP 36.6; O2SAT 92
--- NOTE | 2022-10-26 13:19 | PM.PN ---
Subjective Subjective: Patient seen and examined. He reports he still nauseous. He does drink very little. Voiding his bladder. Reports that he is passing only small amounts of flatus. No bowel movement Vitals/I&O/Wt Last Vital Signs Temp 97.9 F 10/26/22 12:00 Pulse 76 10/26/22 12:00 Resp 16 10/26/22 12:00 BP 175/82 10/26/22 12:00 Pulse Ox 92 10/26/22 12:00 O2 Del Method 10/26/22 12:00 10/25/22 10/26/22 10/26/22 22:59 06:59 14:59 Intake Total 1000 / 1960 827.5 / 2787.5 1475 / 1475 Output Total 800 / 800 275 / 1075 Balance 200 / 1160 552.5 / 1712.5 1475 / 1475 Weight last 48 hrs Weight 165 lb Weight 165 lb Physical Exam Narrative: General: No acute distress, awake alert and oriented x3 Abdomen: Soft, distended, nontender, no guarding rebound or masses Urinary Catheter Management: Dubose: Cath Placed During This Visit: yes, but has since been removed by the nurse Reason for Continuing Indwelling Catheter: Decision to DC Catheter Date Urinary Catheter Removed: 10/25/22 Time Urinary Catheter Discontinued: 18:15 Data 10/26/22 04:47 10/26/22 04:47 A&P Assessment and plan (1) Partial small bowel obstruction: (2) Acute urinary retention: Resolved Plan Clear liquid diet AM labs N.p.o. after midnight If he has not improved by the morning now taken for diagnostic laparoscopy The risks and benefits of the procedure, including but not limited to, bleeding, infection, scar, numbness, pain, damage to surrounding structures, need to convert to an open procedure, were explained to the patient. He is understanding of the risks and wishes to proceed. Attestations Medical Necessity Statement*: Patient requires at least 1 more night in the hospital for treatment of partial small bowel obstruction Coding Level of Care Code Acute Code for Chg Fwd Diagnoses Partial small bowel obstruction K56.600 Acute urinary retention R33.8
[2022-10-26] MEDS: ketorolac 30 mg/mL INJ IVP (13:51)
[2022-10-26 16:00] VITALS: BP 158/77; PULSE 70; RESP 16; TEMP 36.7; O2SAT 95
[2022-10-26] MEDS: sodium chloride 0.9% 1,000 ML 150 ML IV (18:12)
[2022-10-26] MEDS: metoprolol tartrate 25 mg Tablet PO (18:12)
[2022-10-26 20:00] VITALS: BP 165/84; PULSE 61; RESP 19; TEMP 36.7; O2SAT 99
[2022-10-26] MEDS: LORazepam 2 mg/mL INJ 1 mL IVP (20:50)
[2022-10-27] VITALS: BP 166/83; PULSE 64; RESP 19; TEMP 36.9; O2SAT 94
[2022-10-27] MEDS: sodium chloride 0.9% 1,000 ML 150 ML IV ×3 (02:35→13:12)
[2022-10-27 04:00] VITALS: BP 167/80; PULSE 64; RESP 18; TEMP 36.9; O2SAT 91
[2022-10-27 05:08] LABS: Basophils % 0.4 %; Eosinophils # 0.3 10^3/uL (0.0-0.8); Eosinophils % 4.9 %; Hematocrit 40.3 % (42.0-52.0); Hemoglobin 13.1 g/dL (11.7-16.6); Lymphocytes % 18.7 %; Mean Corpuscular HGB Conc 32.5 g/dL (30.0-36.0); Mean Corpuscular Hemoglobin 29.2 pg (28.0-34.0); Mean Corpuscular Volume 89.8 fl (80-94); Mean Platelet Volume 8.8 fL (7.4-10.4); Monocytes # 0.4 10^3/uL (0.2-0.9); Monocytes % 6.8 %; Neutrophils # 3.66 10^3/uL (1.8-7.7); Nucleated Red Blood Cells % 0 %; Platelet Count 116 10^3/cmm (130-400); Red Blood Count 4.49 10^6/uL (4.1-5.3); Red Cell Distribution Width 13.3 % (12.1-15.1); White Blood Count 5.3 10^3/uL (4.0-10.0)
[2022-10-27 05:33] LABS: Anion Gap 11.1 (5-19); Blood Urea Nitrogen 8 mg/dL (8-23); Calcium 8.2 mg/dL (8.5-10.5); Carbon Dioxide 23 mmol/L (22-29); Chloride 113 mmol/L (98-107); Creatinine Clr Calc Pharmacy 92.4182; Glucose 86 mg/dL (65-115); Magnesium 2.1 mg/dL (1.7-2.3); Osmolality Calculated 294 mOsm/kg (285-295); Potassium 4.1 mmol/L (3.5-5.1); Sodium 143 mmol/L (136-145)
--- NOTE | 2022-10-27 07:51 | XR_ITS ---
WS: [id number] Exam: XR acute abdomen series [id number] Date/Time of Exam: 10/27/2022 8:06 AM Reason For Exam: psbo AP portable chest. The lungs are clear and fully expanded. Normal cardiomediastinal silhouette and regional bony element s. Mild plaque atelectasis in the lower left lung zone. Mild subcutaneous emphysema along the lower l ateral left rib cage. XR/XR acute abdomen series [id number] IMPRESSION: 1. No acute cardiopulmonary finding. 2. Mild subcutaneous emphysema along the left lower lateral rib cage. Flat and erect abdomen. Comparison 10/24/2022. Significantly improved small bowel dilatation since the prior study. There are still several mildly dilated small bowel loops in the left abdomen. There is ga s in the colon. No sign of organ enlargement. No free air. Subcutaneous emphyse ma along the upper lateral left abdominal wall and lower left chest wall. Bony structures are intact. IMPRESSION: 1. Significantly less small bowel dilatation is noted on prior study. There is still a small amount of small bowel gas the left abdomen. There is scattered ga s in the colon. This most likely represents adynamic ileus. 2. Subcutaneous emphysema along the lateral left abdominal wall and lower left chest wall.
[2022-10-27 08:00] VITALS: BP 158/87; PULSE 68; RESP 17; TEMP 37; O2SAT 91
[2022-10-27] MEDS: isosorbide mononitrate ER 30 mg Tablet PO (08:12)
[2022-10-27] MEDS: metoprolol tartrate 25 mg Tablet PO ×2 (08:12→17:38)
[2022-10-27] MEDS: magnesium hydroxide 30 mL UDC PO (10:27)
[2022-10-27 11:53] VITALS: BP 137/69; PULSE 59; RESP 16; TEMP 36.9; O2SAT 92
[2022-10-27 16:00] VITALS: BP 130/65; PULSE 59; RESP 16; TEMP 36.9; O2SAT 92
--- NOTE | 2022-10-27 16:39 | P.DS_ITS ---
Discharge Providers Date of Admission: 10/25/22 20:26 Date of Discharge: October 27, 2022 Attending Provider at Admission: Maico Hinds DO Attending Provider at Discharge: Maico Hinds DO Primary Care Provider: Sony Swift MD Diagnoses at Discharge Discharge Diagnosis (1) Partial small bowel obstruction: Status: Acute (2) Acute urinary retention: Status: Acute Reason for Visit Reason for Visit: ABD PAIN Hospital Course Hospital Course This is a very pleasant 67-year-old gentleman who recently underwent a laparoscopic repair of a right inguinal hernia with mesh. Repair was done totally extraperitoneal. Postoperatively he had urinary retention and required a Dubose catheter be placed. On postop day 1 he developed abdominal distention and nausea. The ER physician determined he needed to be admitted. An NG tube was placed for approximately [address] was questionable for partial small bowel obstruction without transition point. He was tolerating regular diet and having bowel movements prior to discharge without any further procedures. Physical Exam Narrative: General : Patient is well developed , no acute distress, oriented x3 Head : Normal cephalic, a-traumatic. Ears : Pinnae and external canal are normal. Hearing is normal. Eyes : PERRLA, Sclera and injection are normal. No conjunctival discharge. Nose : Mucous membranes are without erythema. Throat : buccal mucosa is normal, gums are without significant recession or hypertrophy. Lungs : Equal chest rise bilaterally, no use of accessory muscles, trachea is midline. Cor : Rate and rhythm are normal. Abdomen : Soft, mild distention, appropriately tender no g/r/m Incisions intact without erythema or exudate Extremities : No edema, no cyanosis or clubbing, dorsalis pedis pulses are present bilaterally, non-tender to palpation of calves. Upper extremities are normal bilaterally. Back : non-tender to palpation, no CVA tenderness. Neuro : CN II - XII intact, Upper and lower extremities have equal and full strength Urinary Catheter Management: Dubose: Cath Placed During This Visit: yes, but has since been removed by the nurse Reason for Continuing Indwelling Catheter: Decision to DC Catheter Date Urinary Catheter Removed: 10/25/22 Time Urinary Catheter Discontinued: 18:15 Discharge Data Studies Completed and Pending Completed Studies During Hospitalization Category Date Time Status CT abdomen pelvis w con* [id number] Stat Cat Scan 10/24/22 14:45 Completed XR abdomen 1V* [id number] Routine Exams 10/24/22 20:22 Completed XR acute abdomen series [id number] Routine Exams 10/27/22 07:51 Completed Pending at discharge Category Date Time Status BMP [Basic Metabolic Panel] AM LABS Lab 10/28/22 04:00 Ordered CBC Auto Diff [Complete Blood Count w/Auto] AM LABS Lab 10/28/22 04:00 Ordered Magnesium AM LABS Lab 10/28/22 04:00 Ordered Radiology Impressions Abdomen/Pelvis CT 10/24/22 14:45 IMPRESSION: Small bowel is dilated with collapsed small bowel loops in the right pelvis. Definite transition point not seen. Findings are suggestive of at least partial small bowel obstruction. Pneumoperitoneum representing postoperative changes. COMMENTS: Consistent with the [employer]'s Incidental Findings Committee white paper (J Am Kirk Radiol 2018): Any incidental renal lesion less than 1 cm or classified as too small to characterize, or any incidental cystic renal lesion characterized as simple-appearing, is likely benign. No follow-up imaging is recommended for these lesions per consensus recommendations based on imaging criteria. ADDENDUM: 10/24/22 1728 THIS REPORT CONTAINS FINDINGS THAT MAY BE CRITICAL TO PATIENT CARE. The findings were verbally communicated via telephone conference with ERNESTO LOWERY at 5:26 PM CDT on 10/24/2022. The findings were acknowledged and understood. Abdomen X-Ray 10/24/22 20:22 IMPRESSION: Dilated air-filled small bowel loops. Findings suggestive of at least partial small-bowel obstruction. Chest/Abdomen X-ray 10/27/22 07:51 IMPRESSION: 1. No acute cardiopulmonary finding. 2. Mild subcutaneous emphysema along the left lower lateral rib cage. Flat and erect abdomen. Comparison 10/24/2022. Significantly improved small bowel dilatation since the prior study. There are still several mildly dilated small bowel loops in the left abdomen. There is gas in the colon. No sign of organ enlargement. No free air. Subcutaneous emphysema along the upper lateral left abdominal wall and lower left chest wall. Bony structures are intact. IMPRESSION: 1. Significantly less small bowel dilatation is noted on prior study. There is still a small amount of small bowel gas the left abdomen. There is scattered gas in the colon. This most likely represents adynamic ileus. 2. Subcutaneous emphysema along the lateral left abdominal wall and lower left chest wall. Laboratory Results WBC 5.3 10^3/uL (4.0-10.0) 10/27/22 04:44 RBC 4.49 10^6/uL (4.1-5.3) 10/27/22 04:44 Hgb 13.1 g/dL (11.7-16.6) 10/27/22 04:44 Hct 40.3 % (42.0-52.0) L 10/27/22 04:44 MCV 89.8 fl (80-94) 10/27/22 04:44 MCH 29.2 pg (28.0-34.0) 10/27/22 04:44 MCHC 32.5 g/dL (30.0-36.0) 10/27/22 04:44 RDW 13.3 % (12.1-15.1) 10/27/22 04:44 Plt Count 116 10^3/cmm (130-400) L 10/27/22 04:44 MPV 8.8 fL (7.4-10.4) 10/27/22 04:44 Neut % (Auto) 69.0 % 10/27/22 04:44 Lymph % (Auto) 18.7 % 10/27/22 04:44 [place] % (Auto) 6.8 % 10/27/22 04:44 Eos % (Auto) 4.9 % 10/27/22 04:44 Baso % (Auto) 0.4 % 10/27/22 04:44 Neut # (Auto) 3.66 10^3/uL (1.8-7.7) 10/27/22 04:44 Lymph # (Auto) 1.0 10^3/uL (0.8-4.8) 10/27/22 04:44 [place] # (Auto) 0.4 10^3/uL (0.2-0.9) 10/27/22 04:44 Eos # (Auto) 0.3 10^3/uL (0.0-0.8) 10/27/22 04:44 Baso # (Auto) 0.0 10^3/uL (0.0-0.1) 10/27/22 04:44 Nucleated RBC % (auto) 0 % 10/27/22 04:44 Nucleated RBCs # 0.0 /100WBC 10/27/22 04:44 Sodium 143 mmol/L (136-145) 10/27/22 04:44 Potassium 4.1 mmol/L (3.5-5.1) 10/27/22 04:44 Chloride 113 mmol/L (98-107) H 10/27/22 04:44 Carbon Dioxide 23 mmol/L (22-29) 10/27/22 04:44 Anion Gap 11.1 (5-19) 10/27/22 04:44 BUN 8 mg/dL (8-23) 10/27/22 04:44 Creatinine 0.8 mg/dL (0.7-1.2) 10/27/22 04:44 GFR Calculation 97.0 mL/min (90-130) 10/27/22 04:44 Glucose 86 mg/dL (65-115) 10/27/22 04:44 Calculated Osmolality 294 mOsm/kg (285-295) 10/27/22 04:44 Calcium 8.2 mg/dL (8.5-10.5) L 10/27/22 04:44 Magnesium 2.1 mg/dL (1.7-2.3) 10/27/22 04:44 Total Bilirubin 2.8 mg/dL (0.15-1.2) H 10/24/22 15:00 AST 20 U/L (0-40) 10/24/22 15:00 ALT 24 U/L (0-41) 10/24/22 15:00 Alkaline Phosphatase 52 U/L (40-130) 10/24/22 15:00 Total Protein 7.4 g/dL (6.6-8.7) 10/24/22 15:00 Albumin 4.4 g/dL (3.5-5.2) 10/24/22 15:00 Globulin 3.0 g/dL (1.3-4.6) 10/24/22 15:00 Procedures Performed None Vitals Last Vital Signs Temp 98.4 F 10/27/22 16:00 Pulse 59 L 10/27/22 16:00 Resp 16 10/27/22 16:00 BP 130/65 10/27/22 16:00 Pulse Ox 92 10/27/22 16:00 O2 Del Method 10/27/22 16:00 Discharge Plan Discharge Patient Disposition: Home Condition: Stable Prescriptions: Continued isosorbide mononitrate 30 mg tablet extended release 24 hr 30 mg PO DAILY Qty: 30 11RF nitroglycerin 0.4 mg tablet, sublingual 0.4 mg sublingual Q5M PRN (Reason: chest pain) 30 Days Qty: 30 3RF Rx Instructions: until response; do not exceed 3 doses per episode metoprolol tartrate 25 mg tablet 25 mg PO BID Qty: 180 3RF alprazolam 0.25 mg tablet 0.25 mg PO TID PRN (Reason: Anxiety) clopidogrel [Plavix] 75 mg tablet 75 mg PO QAM Hold Instructions: Resume on 10/26/22. multivitamin [Daily Multi-Vitamin] Tablet 1 tab PO QAM rosuvastatin 40 mg tablet 40 mg PO DAILY aspirin 81 mg tablet,delayed release (DR/EC) 81 mg PO DAILY tramadol 50 mg tablet 100 mg PO Q6H PRN (Reason: pain) Qty: 40 0RF Rx Instructions: May take one tab at a time ondansetron 4 mg tablet,disintegrating 4 mg PO Q8H PRN (Reason: nausea and vomiting) Qty: 14 0RF Discharge Orders: Discharge Order (Routine); Ordered 10/27/22 Ordered By: Maico Hinds Referrals: Sony Swift MD [Primary Care Provider] - 4-7 days Discharge Diet: Advance as tolerated Discharge Activity: Resume usual activity Patient Instructions: Opioid Safety Activity Restrictions/Additional Instructions: No lifting, pushing or pulling over 15 pounds for 6 weeks. Do not soak incisions underwater for 2 weeks. Shower daily. Let the glue fall off on its own. Discharge Attestations Time Spent in Discharge Care*: less than 30 min Status at Discharge: Cognitive status at discharge: cognitively intact , Behavioral status at discharge: cooperative , Quality Metrics Clinical Quality Measures [ No reported AMI, CVA or VTE this stay] Coding Level of Care Code Acute Code for Chg Fwd Diagnoses Partial small bowel obstruction K56.600 Acute urinary retention R33.8
--- NOTE | 2022-10-27 17:42 | PC.NURSE ---
Discharge education reviewed with patient and at bedside. Verbally acknowledges discharge plan of care. All questions and concerns addressed.
[2022-10-27 17:43] VITALS: BP 130/65; PULSE 62; RESP 16; TEMP 36.9; O2SAT 92
== END 2022-10-27 17:45 | disposition home or self-care (01) | DRG 390 ==
LOC: ER 17:28 → MEDSURG 18:14
PROVIDERS: Admitting Provider Surgery; Emergency Provider Emergency Medicine; PCP Family Medicine; Visit Provider Surgery
DX: K56.600 Partial intestinal obstruction, unspecified as to cause (principal); R33.9 Retention of urine, unspecified; Z79.02 Long term (current) use of antithrombotics/antiplatelets; Z79.82 Long term (current) use of aspirin; Z79.891 Long term (current) use of opiate analgesic; F41.9 Anxiety disorder, unspecified; I25.10 Atherosclerotic heart disease of native coronary artery without angina pectoris; Z95.5 Presence of coronary angioplasty implant and graft; G89.29 Other chronic pain; M54.9 Dorsalgia, unspecified; F32.A Depression, unspecified; K21.9 Gastro-esophageal reflux disease without esophagitis; E78.5 Hyperlipidemia, unspecified; I10 Essential (primary) hypertension
CPT/HCPCS: 36415; 51702; 51798; 74018; 74022; 74177; 80048; 80053; 83735; 85025; 96361; 96372; 96374; 96375; 96376; 99284; 99285; A4216; C1781; G0378; J0690; J1100; J1170; J1644; J1885; J2060; J2250; J2370; J2405; J2704; J2710; J2765; J3010; J3490; J7030; J7040; Q9967

== ENCOUNTER 2022-10-30 14:51 | Outpatient (CLI) | payer MEDICARE, OTHER, SELFPAY ==
--- NOTE | 2022-10-30 15:44 | XRR_ITS ---
PROCEDURE INFORMATION: Exam: XR Abdomen Exam date and time: 10/30/2022 3:46 PM Age: 67 years old Clinical indication: Condition or disease; Other: Sbo; Prior surgery; Surgery date: 3-7 days post-operative; Surgery type: Hernia repair 10/23; Patient HX: Had hernia surgery 10/23/22. Having bowel issues since then TECHNIQUE: Imaging protocol: Radiologic exam of the abdomen. Views: Frontal supine view of the abdomen. 1 View. COMPARISON: CR XR acute abdomen series [id number] 10/27/2022 7:14 AM FINDINGS: Gastrointestinal tract: No bowel dilation. No significant stool burden Bones/joints: Unremarkable. Other findings: No suspicous calcifications. XR/XR KUB [id number] IMPRESSION: No acute findings.
== END 2022-10-30 14:52 | disposition home or self-care (01) ==
LOC: RAD 14:55
PROVIDERS: PCP Family Medicine; Visit Provider Family Medicine
DX: R06.02 Shortness of breath (principal)
CPT/HCPCS: 74018

== ENCOUNTER → 2022-11-07 09:31 | Outpatient (BNVA) | payer MEDICARE, OTHER, SELFPAY | PROVIDERS: PCP Family Medicine; Visit Provider Surgery | DX: Z98.890 Other specified postprocedural states (principal); Z87.19 Personal history of other diseases of the digestive system | CPT/HCPCS: 99024 ==

== ENCOUNTER → 2023-01-02 09:03 | Outpatient (BNVA) | payer MEDICARE, OTHER, SELFPAY | PROVIDERS: PCP Family Medicine; Visit Provider Family Medicine | DX: R10.9 Unspecified abdominal pain (principal) | CPT/HCPCS: 80053; 83690; 85025 ==

== ENCOUNTER → 2023-05-08 12:25 | Outpatient (BNVA) | payer MEDICARE, OTHER, SELFPAY | PROVIDERS: PCP Family Medicine; Visit Provider Emergency Medicine | DX: J06.9 Acute upper respiratory infection, unspecified (principal); J02.0 Streptococcal pharyngitis | CPT/HCPCS: 87071; 87426; 87880 ==

== ENCOUNTER → 2023-06-18 18:07 | Outpatient (BNVA) | payer MEDICARE, OTHER, SELFPAY | PROVIDERS: PCP Family Medicine; Visit Provider Family Medicine | DX: M54.9 Dorsalgia, unspecified (principal) | CPT/HCPCS: 81000 ==

== ENCOUNTER → 2023-10-26 17:04 | Outpatient (BNVA) | payer MEDICARE, OTHER, SELFPAY | PROVIDERS: PCP Family Medicine; Visit Provider Registered Nurse Neonatal Intensive Care | DX: R50.9 Fever, unspecified (principal) | CPT/HCPCS: 87400; 87426 ==

== ENCOUNTER 2024-01-07 06:34 | Inpatient (IN) | payer MEDICARE, OTHER, SELFPAY ==
[2024-01-07] VITALS (55 sets, daily range): BP systolic 119–168; BP diastolic 62–92; PULSE 86–113; RESP 15–27; TEMP 36.8–37.5; O2SAT 90–95; BMI 25.0
--- NOTE | 2024-01-07 06:43 | XRR_ITS ---
PROCEDURE INFORMATION: Exam: XR Chest Exam date and time: 01/07/2024 6:48 AM Age: 68 years old Clinical indication: Cough and dyspnea; Additional info: Dyspnea/cough TECHNIQUE: Imaging protocol: Radiologic exam of the chest. Views: 1 view. COMPARISON: Chest x-ray of 06/02/2020 FINDINGS: Lungs: Clear. Pleural spaces: No pleural effusion identified. Heart/Mediastinum: Cardiomediastinal silhouette is stable.. Bones/joints: No acute osseous abnormality identified. XR/XR chest 1V portable [id number] IMPRESSION: No acute cardiopulmonary abnormality identified.
--- NOTE | 2024-01-07 06:44 | W.ED.CHESTPA ---
HPI - Chest Pain General: Chief Complaint: Chest Pain Stated Complaint: Chest Pain Time Seen by Provider: 01/07/24 06:38 Source: patient Mode of arrival: ambulatory History of Present Illness: 68-year-old male with a known history of coronary artery disease presents emergency room with complaint of chest pain. Patient states pain woke him up in the middle of the night no radiation of the pain jeep was diaphoretic and short of breath he still reports having pain in about of 4 or 5 out of 6 substernal. He has not taken any nitro for it. Patient has a known history of coronary disease see the most recent angiogram we have on our records from 2019 at that time he had a fourth stent placed in his proximal LAD. He states that after that about 2 years ago he had another heart cath done at [facility] in [place] in which the fifth coronary artery stent was placed. We do not have records of that at this time. Patient is diabetic he does not take any medications were controlled with diet and exercise he does not smoke. Angiogram June 03, 2020 Diagnostic Cath Status: Urgent Diagnostic Findings * LM has luminal irregularities. * CX has luminal irregularities. Gives rise to an OM branch which has a prior stent which is patent.. * RCA has a proximal stent which is patent. It has 10 to 20% in-stent restenosis in proximal segment. RCA has diffuse luminal irregularities however no significant stenosis is present.. * Proximal Left Anterior Descending Coronary Artery: Severe 90% stenosis, DENILSON: 3 flow. There is a patent stent in mid LAD. LAD gives rise to the medium sized diagonal branch which is free of significant disease.. * Coronary angiography shows right dominance. PCI Status: Urgent PCI Indication: New Onset Angina <= 2 months Interventional Findings * We engaged left main artery with XB 3.0 guide catheter. A run-through guidewire was used to cross the lesion and was placed in distal LAD. We used a 2.5 x 12 mm semicompliant balloon to predilate the proximal LAD stenosis. This was followed by placement of a 3.0 x 15 mm resolute Aida drug-eluting stent. At this time final angiogram was performed that showed excellent stent expansion, DENILSON-3 flow and no residual stenosis. Guidewire and guide catheter was removed. Radial sheath was removed and TR band was placed. Patient left the [employer] Of Ge[employer] in a stable condition. * Proximal Left Anterior Descending Coronary Artery: 90% stenosis treated with AB TREK 2.50X12 RX BALLOON and MDT R AIDA 3.0X15 REYMUNDO. 0% residual stenosis, DENILSON: 3 flow. MD complaint: chest pain Pertinent past history: coronary artery disease and [employer] Onset (ago): hour(s) Timing of current episode: episodic Prior episodes: Yes Onset: during rest Pain location: substernal Severity: moderate Pain scale (0-10): 4 Quality: aching and heaviness Relieving factors: nothing Exacerbating factors: exertion Associated symptoms: Reports diaphoresis, dyspnea and nausea; Deny abdominal pain, fever(s), leg edema, palpitations, sense of impending doom, syncope, vomiting or other Treatment prior to arrival: none Risk Factors: Coronary artery disease risk factors: diabetes Review of Systems Const: Reports: diaphoresis; Denies: fever(s) or chills Card: Reports: chest pain; Denies: palpitations or syncope Resp: Reports: dyspnea GI: Reports: nausea; Denies: abdominal pain or vomiting : Denies: dysuria, urinary frequency or urinary urgency Musc: Denies: neck pain or back pain Skin/Breast: Denies: rash PFSH ED PFSH: Medical History Depression Chronic back pain Urolithiasis Atherosclerotic heart disease of [place] coronary artery with other forms of angina pectoris EKG from 07/05/2020 EKG revealed bradycardia with a rate of [address]-T change Atypical chest pain Atherosclerotic heart disease of [place] coronary artery with unstable angina pectoris CAD (coronary artery disease) Hypertension Hyperlipidemia Arrhythmia Anxiety GERD (gastroesophageal reflux disease) Chronic prostatitis Surgical History Status post right inguinal hernia repair Hx of colonoscopy History of esophagogastroduodenoscopy (EGD) H/O laminectomy H/O shoulder surgery H/O heart artery stent total of 5 stents Family History Mother , 62 CAD (coronary artery disease) Father , at age 91 No problems noted. Social History Smoking and tobacco/nicotine status: never used tobacco/nicotine Alcohol intake: never Substance/Drug Use: never Adopted: No Caregiver/support person: No Lives independently: No Household members: spouse Marital status: Current occupational status: retired Current gender identity: Male Physical Exam Const: COMMON NORMALS: no acute distress GENERAL APPEARANCE: cooperative and comfortable ORIENTATION/CONSCIOUSNESS: Yes awake, Yes oriented to person, Yes oriented to place and Yes oriented to time HENMT: COMMON NORMALS: normocephalic, atraumatic and hearing grossly normal bilaterally HEAD & SCALP: normocephalic and atraumatic Resp: COMMON NORMALS: normal respiratory effort, No retractions, No use of accessory muscles and clear to auscultation bilaterally AUSCULTATION: clear to auscultation bilaterally Cardio: COMMON NORMALS: regular rate, regular rhythm and No murmurs present (Cardio) RATE: regular rate RHYTHM: regular rhythm GI: COMMON NORMALS: Soft to palpation and No hepatosplenomegaly present AUSCULTATION: Yes normoactive bowel sounds PALPATION: Yes Soft to palpation, No Tenderness to palpation present (GI), No Guarding due to palpation present (GI) and Yes No hepatosplenomegaly present Extremity: COMMON NORMALS: normal to inspection, capillary refill normal, no clubbing, cyanosis or edema, no calf tenderness and no pedal edema Neuro: SENSORIUM/ORIENTATION: Yes oriented to person, Yes oriented to place and Yes oriented to time Skin: COMMON NORMALS: no rashes or lesions noted GENERAL SKIN EXAM: no rashes or lesions noted Course Vital Signs: Vital signs: Vital Signs Temperature 98.9 F 01/07/24 12:00 Pulse Rate 99 01/07/24 12:00 Respiratory Rate 21 H 01/07/24 12:00 Blood Pressure 151/88 01/07/24 12:00 Pulse Oximetry 91 01/07/24 12:00 Oxygen Delivery Me thod Room Air 01/07/24 06:36 MDM - Chest Pain Medical Decision Making For a time patient will requested that the nitro be taken off we are able to convince him to allow us to reapply it at half an inch he is having a headache from it he is feeling some chest discomfort. Repeat EKG did not show any acute changes. Initial troponin is less than 6. Will start the patient on IV nitro and heparinized. Patient has pretty significant coronary artery disease his current symptoms are very concerning for unstable angina. Will admit to consult cardiology were trying to get his old records. Given his unstable angina and his history of coronary artery disease we will start the patient on heparin and switch him to an IV nitro drip. The given his statin and clopidogrel. Discussed with hospitalist and with Dr. Dietrich for cardiology Dr. Dietrich is seen the patient because of his persistent discomfort as recommended proceeding directly to the [employer] Of [employer]. Orders written for admission Differential Diagnosis Likely acute myocardial infarction Medical Records I reviewed the patient's medical records. Lab Data I reviewed the patient's lab results. 01/07/24 06:45 01/07/24 06:45 Radiology Impressions Chest X-Ray 01/07/24 06:43 IMPRESSION: No acute cardiopulmonary abnormality identified. Gallbladder Ultrasound 01/07/24 10:26 IMPRESSION: 1. Cholelithiasis without acute cholecystitis. 2. Long-term stability RIGHT renal cyst. 3. Poorly visualized liver. 4. Nonvisualization of the pancreas. Laboratory Results WBC 8.07 10^3/uL (3.29-11.43) 01/07/24 06:45 RBC 5.34 10^6/uL (3.85-5.65) 01/07/24 06:45 Hgb 15.60 g/dL (11.27-16.99) 01/07/24 06:45 Hct 47.6 % (37-53) 01/07/24 06:45 MCV 89.1 fl (82-101) 01/07/24 06:45 MCH 29.2 pg (27-33) 01/07/24 06:45 MCHC 32.8 g/dL (30-55) 01/07/24 06:45 RDW 13.5 % (12.1-15.1) 01/07/24 06:45 Plt Count 118 10^3/cmm (157-399) L 01/07/24 06:45 MPV 9.2 fL (7.4-10.4) 01/07/24 06:45 Neut % (Auto) 86.8 % 01/07/24 06:45 Lymph % (Auto) 5.9 % 01/07/24 06:45 [place] % (Auto) 5.7 % 01/07/24 06:45 Eos % (Auto) 1.0 % 01/07/24 06:45 Baso % (Auto) 0.2 % 01/07/24 06:45 Neut # (Auto) 7.00 10^3/uL (1.8-7.7) 01/07/24 06:45 Lymph # (Auto) 0.5 10^3/uL (0.8-4.8) L 01/07/24 06:45 [place] # (Auto) 0.5 10^3/uL (0.2-0.9) 01/07/24 06:45 Eos # (Auto) 0.1 10^3/uL (0.0-0.8) 01/07/24 06:45 Baso # (Auto) 0.0 10^3/uL (0.0-0.1) 01/07/24 06:45 Nucleated RBC % (auto) 0 % 01/07/24 06:45 Nucleated RBCs # 0.0 /100WBC 01/07/24 06:45 Sodium 142 mmol/L (136-145) 01/07/24 06:45 Potassium 4.1 mmol/L (3.5-5.1) 01/07/24 06:45 Chloride 106 mmol/L (98-107) 01/07/24 06:45 Carbon Dioxide 21 mmol/L (22-29) L 01/07/24 06:45 Anion Gap 19.1 (5-19) H 01/07/24 06:45 BUN 15 mg/dL (8-23) 01/07/24 06:45 Creatinine 0.9 mg/dL (0.7-1.2) 01/07/24 06:45 GFR Calculation 84.4 mL/min (90-130) L 01/07/24 06:45 Glucose 133 mg/dL (65-115) H 01/07/24 06:45 Estimat Average Glucose 120 01/07/24 06:48 Hemoglobin A1c 5.8 % (4.0-6.0) 01/07/24 06:48 Calculated Osmolality 297 mOsm/kg (285-295) H 01/07/24 06:45 Calcium 9.0 mg/dL (8.5-10.5) 01/07/24 06:45 Total Bilirubin 1.7 mg/dL (0.15-1.2) H 01/07/24 06:45 AST 30 U/L (0-40) 01/07/24 06:45 ALT 43 U/L (0-41) H 01/07/24 06:45 Alkaline Phosphatase 77 U/L (40-130) 01/07/24 06:45 Troponin T Baseline < 6 ng/L (0-15) 01/07/24 06:45 Total Protein 7.8 g/dL (6.6-8.7) 01/07/24 06:45 Albumin 4.4 g/dL (3.5-5.2) 01/07/24 06:45 Globulin 3.4 g/dL (1.3-4.6) 01/07/24 06:45 Lipase 113 U/L (13-60) H 01/07/24 06:48 TSH 1.94 uIU/mL (0.27-4.20) 01/07/24 06:48 All radiology interpretation(s) finalized by discharge Discharge Plan Discharge Patient Disposition: Admitted As Inpatient Admit Provider: Price Acharya Clinical Impression: Unstable angina pectoris, CAD (coronary artery disease) Condition: Stable Coding Level of Care Code ED [employer] Dist[employer] Operator for Levi Daniel
[2024-01-07 07:00] LABS: Basophils % 0.2 %; Eosinophils # 0.1 10^3/uL (0.0-0.8); Hematocrit 47.6 % (37-53); Lymphocytes # 0.5 10^3/uL (0.8-4.8); Lymphocytes % 5.9 %; Mean Corpuscular HGB Conc 32.8 g/dL (30-55); Mean Corpuscular Hemoglobin 29.2 pg (27-33); Mean Corpuscular Volume 89.1 fl (82-101); Mean Platelet Volume 9.2 fL (7.4-10.4); Monocytes # 0.5 10^3/uL (0.2-0.9); Monocytes % 5.7 %; Neutrophils % 86.8 %; Nucleated Red Blood Cells % 0 %; Platelet Count 118 10^3/cmm (157-399); Red Blood Count 5.34 10^6/uL (3.85-5.65); Red Cell Distribution Width 13.5 % (12.1-15.1); White Blood Count 8.07 10^3/uL (3.29-11.43)
[2024-01-07] MEDS: nitroglycerin 1 gm/inch oint Pkt 1 INCH TOPICAL (07:01)
--- NOTE | 2024-01-07 07:02 | ECG_ITS ---
[facility] Test Date: 2024-01-07 Pat Name: Tom Peguero Department: Room: Gender: Male Collection Supervisor: : 1955 Requested By: Luis Kelley Order Number: [id number] Kiley MD: Spencer Blakely M.D. Measurements Intervals [place] Rate: 85 P: 24 CT: 155 QRS: 15 QRSD: 136 T: 35 QT: 387 QTc: 462 Interpretive Statements SINUS RHYTHM RIGHT BUNDLE BRANCH BLOCK [120+ ms QRS DURATION, UPRIGHT V1, 40+ ms S IN I/aVL/V4/V5/V6] Compared to ECG 06/03/2020 08:37:44 No significant changes Electronically Signed On 01-07-2024 19:00:18 CDT by Spencer Blakely M.D. [id number]
[2024-01-07] MEDS: aspirin 81 mg Chew Tablet 324 MG PO (07:03)
[2024-01-07 07:15] LABS: Alanine Aminotransferase 43 U/L (0-41); Albumin Level 4.4 g/dL (3.5-5.2); Alkaline Phosphatase 77 U/L (40-130); Aspartate Amino Transferase 30 U/L (0-40); Blood Urea Nitrogen 15 mg/dL (8-23); Carbon Dioxide 21 mmol/L (22-29); Chloride 106 mmol/L (98-107); Creatinine Clr Calc Pharmacy 81.0542; Globulin 3.4 g/dL (1.3-4.6); Glomerular Filtration Rate 84.4 mL/min (90-130); Glucose 133 mg/dL (65-115); Osmolality Calculated 297 mOsm/kg (285-295); Sodium 142 mmol/L (136-145); Total Bilirubin 1.7 mg/dL (0.15-1.2); Total Protein 7.8 g/dL (6.6-8.7)
[2024-01-07 07:16] LABS: Troponin(5th) Baseline < 6 ng/L (0-15)
[2024-01-07 07:22] LABS: Anion Gap 19.1 (5-19); Potassium 4.1 mmol/L (3.5-5.1)
[2024-01-07] MEDS: ondansetron 2 mg/ML SDV 2 mL 4 MG IVP ×3 (07:26→10:33)
--- NOTE | 2024-01-07 08:08 | P.HP_ITS ---
Providers/Chief Complaint 2 Admitting Physician: Price Acharya MD, hospitalist Primary Care Provider: Sony Swift MD Chief Complaint: Chest Pain History of Present Illness Tom Peguero is a 68 year old male with prior history of 5 stents presents with chest discomfort awakening from sleep, substernal pressure associated with nausea and diaphoresis. No shortness of breath or radiation of discomfort. He reports the pain is similar to what he had previously. Nitroglycerin ointment was placed, and he has had partial relief of discomfort but still has some pain. He also relates he has a headache. No vomiting. Does not really have any focal abdominal discomfort. No recent illness although did have COVID in September. Believes last intervention was [facility] distal LAD 2 years ago. No blood in stool or black or tarry stools. He is compliant with his medication. Denies tobacco use. Review of Systems 2 General: Reports: 10 or more systems reviewed and unremarkable except in HPI and below Card: Reports: chest pain Resp: Denies: dyspnea GI: Reports: nausea; Denies: abdominal pain, hematochezia or melena Medications/Allergies Home Medications Medication Instructions Recorded Confirmed Last Taken Type multivitamin (Daily Multi-Vitamin 1 tab PO QAM 06/02/20 01/07/24 01/06/24 History tablet) nitroglycerin 0.4 mg sublingual 0.4 mg sublingual Q5M PRN chest 11/02/20 01/07/24 Unknown Rx tablet pain 30 days #30 tabs aspirin 81 mg tablet,delayed 81 mg PO DAILY 10/19/21 01/07/24 01/07/24 History release rosuvastatin 40 mg tablet 40 mg PO DAILY 10/19/21 01/07/24 01/06/24 History omeprazole 40 mg capsule,delayed 40 mg PO DAILY #30 caps 11/27/23 01/07/24 01/06/24 Rx release clopidogrel 75 mg tablet 75 mg PO QAM 01/07/24 01/07/24 01/06/24 History isosorbide mononitrate 30 mg 30 mg PO DAILY 01/07/24 01/07/24 01/06/24 History tablet,extended release 24 hr metoprolol tartrate 25 mg tablet 25 mg PO BID 01/07/24 01/07/24 01/06/24 History olopatadine 0.1 % eye drops 1 drp ophthalmic (eye) BID PRN 01/07/24 01/07/24 Unknown History (Pataday Twice Daily Relief) allergies Allergies Allergy/AdvReac Type Severity Reaction Status Date / Time atorvastatin Allergy NA Verified 10/26/23 16:56 morphine Allergy ADR-Nausea Verified 10/26/23 16:56 simvastatin Allergy NA Verified 10/26/23 16:56 PFSH Acute 2 PFSH: Medical History Depression Chronic back pain Urolithiasis Atherosclerotic heart disease of [place] coronary artery with other forms of angina pectoris EKG from 07/05/2020 EKG revealed bradycardia with a rate of [address]. [address]-T change Atypical chest pain Atherosclerotic heart disease of [place] coronary artery with unstable angina pectoris CAD (coronary artery disease) Hypertension Hyperlipidemia Arrhythmia Anxiety GERD (gastroesophageal reflux disease) Chronic prostatitis Surgical History Status post right inguinal hernia repair Hx of colonoscopy History of esophagogastroduodenoscopy (EGD) H/O laminectomy H/O shoulder surgery H/O heart artery stent total of 5 stents Family History Mother , 62 CAD (coronary artery disease) Father , at age 91 No problems noted. Social History Smoking and tobacco/nicotine status: never used tobacco/nicotine Alcohol intake: never Substance/Drug Use: never Adopted: No Caregiver/support person: No Lives independently: No Household members: spouse Marital status: Current occupational status: retired Current gender identity: Male Vitals/I&O/Wt Last Vital Signs Temp 98.2 F 01/07/24 06:36 Pulse 89 01/07/24 07:26 Resp 16 01/07/24 07:26 BP 144/84 01/07/24 07:26 Pulse Ox 93 01/07/24 07:26 O2 Del Method Room Air 01/07/24 06:36 Weight last 48 hrs Weight 74.843 kg Physical Exam 2 Narrative: General exam is a white male, reporting chest discomfort HEENT: Atraumatic normocephalic. Oropharynx clear Neck is supple no lymphadenopathy thyromegaly Cardiovascular regular rate and rhythm, no murmur. No S3 or S4. Lungs clear no wheezing or crackles Abdomen is soft with positive bowel sounds. No obvious organomegaly exam is deferred Extremities no sinus clubbing edema, cap refill brisk Skin no rash Neuro no obvious focal deficits. Data 01/07/24 06:45 01/07/24 06:45 Other Labs: Bilirubin 1.7, ALT 43. Rest of LFTs are normal. Calcium and albumin are normal Chest x-ray by my read no infiltrate EKG demonstrates sinus rhythm, normal axis, right bundle branch block. Nonspecific ST-T wave changes. First cardiac enzyme negative A&P Assessment and plan (1) Chest pain: Concern this is unstable angina even though initial cardiac enzyme negative. Anticoagulate with heparin Continue Plavix and aspirin Continue beta-connor, statin Cardiology consult Admission to cardiac stepdown unit N.p.o. for now Serial troponins and EKGs Nitroglycerin drip, titrate for no chest discomfort Dilaudid for breakthrough pain Qualifiers: Chest pain type: precordial pain Qualified Code(s): R07.2 - Precordial pain (2) Hyperglycemia: Check hemoglobin A1c, TSH (3) Elevated bilirubin: Check gallbladder ultrasound Plan History of reflux. Continue Protonix Multiple other medical problems, continue current medications Full code Heparin will suffice for DVT prophylaxis Attestations 2 Medical Necessity Statement*: Will require greater than 2 midnight stay secondary to discomfort, ongoing, with concern of unstable angina. Depending on next enzyme, possibility of non-ST elevation myocardial infarction exist. Diagnoses Chest pain R07.2 Chest pain type: precordial pain Hyperglycemia R73.9 Elevated bilirubin R17 Time Spent (min) 58
[2024-01-07] MEDS: clopidogrel 75 mg Tablet PO (08:10)
[2024-01-07] MEDS: heparin 5,000 unit/mL INJ 1 mL IV (08:10)
[2024-01-07] MEDS: pantoprazole DR 40 mg Tablet PO (08:10)
[2024-01-07] MEDS: heparin drip 25,000 UNIT/500 ML PREMIX 20.9600000000000009 UNIT IV (08:12)
--- NOTE | 2024-01-07 08:15 | PM.CONSULT ---
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 According to patient he woke up with significant substernal chest discomfort associated with diaphoresis at around 1 AM. No radiation. Multiple episodes since. Still having about 4-5/10. Also was having nausea. EKG shows right bundle branch block. Review of Systems General: Reports: 10 or more systems reviewed and unremarkable except in HPI and below Card: Reports: chest pain Resp: Denies: dyspnea GI: Reports: nausea; Denies: abdominal pain, hematochezia or melena Medications/Allergies Home Medications Medication Instructions Recorded Confirmed Last Taken Type multivitamin (Daily Multi-Vitamin 1 tab PO QAM 06/02/20 01/07/24 01/06/24 History tablet) nitroglycerin 0.4 mg sublingual 0.4 mg sublingual Q5M PRN chest 11/02/20 01/07/24 Unknown Rx tablet pain 30 days #30 tabs aspirin 81 mg tablet,delayed 81 mg PO DAILY 10/19/21 01/07/24 01/07/24 History release rosuvastatin 40 mg tablet 40 mg PO DAILY 10/19/21 01/07/24 01/06/24 History omeprazole 40 mg capsule,delayed 40 mg PO DAILY #30 caps 11/27/23 01/07/24 01/06/24 Rx release clopidogrel 75 mg tablet 75 mg PO QAM 01/07/24 01/07/24 01/06/24 History isosorbide mononitrate 30 mg 30 mg PO DAILY 01/07/24 01/07/24 01/06/24 History tablet,extended release 24 hr metoprolol tartrate 25 mg tablet 25 mg PO BID 01/07/24 01/07/24 01/06/24 History olopatadine 0.1 % eye drops 1 drp ophthalmic (eye) BID PRN 01/07/24 01/07/24 Unknown History (Pat[place] Twice Daily Relief) allergies Allergies Allergy/AdvReac Type Severity Reaction Status Date / Time atorvastatin Allergy NA Verified 10/26/23 16:56 morphine Allergy ADR-Nausea Verified 10/26/23 16:56 simvastatin Allergy NA Verified 10/26/23 16:56 Current Medications Generic Name Dose Route Start Last Admin Trade Name Freq PRN Reason Stop Dose Admin Heparin Sodium (Porcine) 0 unit 01/07/24 07:32 01/07/24 08:10 Heparin 5,000 Unit/Ml Inj 1 Ml IV 3,700 unit PRN PRN Administration Heparin weight-base protocol Protocol Heparin Sodium/Sodium Chloride 25,000 unit in 500 mls @ 0 mls/hr 01/07/24 07:45 01/07/24 08:12 Heparin Drip IV 14 unit/kg/hr .Q0M ALEJANDRA 20.96 mls/hr Administration Protocol Per Protocol PFSH Acute PFSH: Medical History Depression Chronic back pain Urolithiasis Atherosclerotic heart disease of [place] coronary artery with other forms of angina pectoris EKG from 07/05/2020 EKG revealed bradycardia with a rate of [address]. [address]-T change Atypical chest pain Atherosclerotic heart disease of [place] coronary artery with unstable angina pectoris CAD (coronary artery disease) Hypertension Hyperlipidemia Arrhythmia Anxiety GERD (gastroesophageal reflux disease) Chronic prostatitis Surgical History Status post right inguinal hernia repair Hx of colonoscopy History of esophagogastroduodenoscopy (EGD) H/O laminectomy H/O shoulder surgery H/O heart artery stent total of 5 stents Family History Mother , 62 CAD (coronary artery disease) Father , at age 91 No problems noted. Social History Smoking and tobacco/nicotine status: never used tobacco/nicotine Alcohol intake: never Substance/Drug Use: never Adopted: No Caregiver/support person: No Lives independently: No Household members: spouse Marital status: Current occupational status: retired Current gender identity: Male Vitals/I&O/Wt Last Vital Signs Temp 98.2 F 01/07/24 06:36 Pulse 89 01/07/24 07:26 Resp 16 01/07/24 07:26 BP 144/84 01/07/24 07:26 Pulse Ox 93 01/07/24 07:26 O2 Del Method Room Air 01/07/24 06:36 Weight last 48 hrs Weight 165 lb Physical Exam Narrative: GENERAL: Patient is alert, awake and oriented x3. [] NECK: No jugular vein distension. [] HEENT: No cyanosis. No icterus. No pallor. [] HEART: Regular S1 and S2. No murmur, rub or gallop. [] LUNGS: Clear to auscultate bilaterally. [] CENTRAL NERVOUS SYSTEM: Grossly nonfocal. [] EXTREMITIES: Lower extremities with no edema bilaterally. Data 01/07/24 06:45 01/07/24 06:45 A&P Assessment and plan (1) Chest pain: Qualifiers: Chest pain type: precordial pain Qualified Code(s): R07.2 - Precordial pain (2) CAD (coronary artery disease): Qualifiers: Coronary Disease-Associated Artery/Lesion type: [place] artery [place] vs. transplanted heart: [place] heart Associated angina: with stable angina Qualified Code(s): I25.118 - Atherosclerotic heart disease of [place] coronary artery with other forms of angina pectoris (3) Hypertension: Qualifiers: Hypertension type: essential hypertension Qualified Code(s): I10 - Essential (primary) hypertension (4) Hyperlipidemia: Qualifiers: Hyperlipidemia type: mixed hyperlipidemia Qualified Code(s): E78.2 - Mixed hyperlipidemia (5) Elevated bilirubin: Plan Patient has presented with chest pain symptoms that are concerning for unstable angina. Still having ongoing chest pain. Has a significant CAD history with multiple stents in the past. Will proceed with coronary angiogram with possible PCI. Risks and benefits of the procedure been discussed. He understands the risks and benefits and wants to proceed. NPO Continue aspirin and plavix Anticoagulation started. Initial troponin is negative. Continue to trend. Order echocardiogram Thank you for involving us with care of this patient. We will continue to follow. Please call with questions. Consult Attestations Medical Necessity Statement: Care expected to cross 2 midnights. Coding Level of Care Code Acute Code for [facility] Fwd Diagnoses Chest pain R07.2 Chest pain type: precordial pain Coronary artery disease of [place] artery of [place] heart with stable angina pectoris I25.118 Coronary Disease-Associated Artery/Lesion type: [place] artery [place] vs. transplanted heart: [place] heart Associated angina: with stable angina Essential hypertension I10 Hypertension type: essential hypertension Mixed hyperlipidemia E78.2 Hyperlipidemia type: mixed hyperlipidemia Elevated bilirubin R17
--- NOTE | 2024-01-07 08:21 | XACV_ITS ---
Exam Room: [facility] Ht: 173 cm Wt: 75 kg BSA: 1.90 m2 Gender: Male : 1955 Any Known Allergies: Other Exam Priority: Routine Procedure(s): Procedure Description: Diagnostic procedure Procedure Description: Left Heart Catheterization Procedure Description: Left ventriculography Procedure Description: Miscellaneous Procedure Description: ACT Procedure Description: Coronary Angiography Procedure Description: Pressure Wire Diagnostic Cath Status: Urgent Diagnostic Findings * Left Main has no significant disease. * Left Anterior Descending has patent prior stents in proximal and mid segment. No significant stenosis. * Right Coronary Artery has patent prior stent in proximal segment. Mild to moderate luminal irregularities are seen in the distal RCA. * Distal Circumflex: moderate 50% stenosis, DENILSON: 3 flow. OM 1 has a patent prior stent. * Coronary angiography shows right dominance. Interventional Findings * PROCEDURE DETAIL: We engaged left main artery with XB 3.5 guide catheter. IV heparin was administered to maintain anticoagulation. After normalization, IFR wire was placed in distal vessel. iFR value of 0.96 was obtained. As this was nonischemic, medical therapy was decided. iFR wire and guide catheter were removed. 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 . Conclusions 1. There is moderate left circumflex artery stenosis s/p iFR that is negative for ischemia. 2. Normal left ventricular systolic function. Ejection fraction of 55%. Recommendations * Aggressive risk factor modification. * Outpatient cardiology follow up in 2-4 weeks. Interventional RX Recommendation: medical therapy and/or counseling Anticoagulation: Heparin Ventriculography Ejection Fraction: 55.0 % Pressures Phase:Rest AO : 106 / 77 ( 92 ) @ 10:14:00 AM 107 / 79 ( 93 ) @ 10:18:00 AM 135 / 63 ( 92 ) @ 10:23:00 AM 134 / 64 ( 92 ) @ 10:23:00 AM 125 / 66 ( 91 ) @ 10:26:00 AM 108 / 65 ( 86 ) @ 10:27:00 AM 102 / 66 ( 84 ) @ 10:33:00 AM LV : 141 / -18 / 7 @ 10:22:00 AM 140 / -18 / 6 @ 10:22:00 AM 141 / -10 / 8 @ 10:23:00 AM 146 / -15 / 10 @ 10:23:00 AM Valves Phase:DefaultPhase AV : 12.0 @ 9:45:02 AM AV Mean Gradient: 8.0 @ 9:45:02 AM 8.0 @ 9:45:02 AM Clinical Evaluation EBL: 5mL-10mL Procedural Details Pre-Procedure Time Out. Identified patient by full name and date of as verbalized by the patient/guarantor. Does the consent match the physician's order: Yes. Accurate & Complete Informed Consent: Yes. Inpatient/Outpatient History & Physical on Chart: Yes. If H&P is completed, is and addenduem needed: No; If yes, is the addendum complete: N/A. Visualize and Verify Site with Patient/Guarantor: N/A. Relevant Radiology Images available: Yes. Pre-op teaching completed and patient verbalized understanding. The risks, benefits, and alternatives of sedation and/or procedure were discussed by physician. The patient agrees to continue. The risks, benefits, and alternatives of sedation and/or procedure were discussed by physician. The patient agrees to continue. Procedure started. A 18 gauge IV was started in the right anticubital using aseptic technique. IV Fluids: 0.9% NaCl at KVO. 0 mL infused prior to lab clerk. [facility] Clinical Fraility Score: 3: Managing Well. A 18 gauge IV was started in the right forearm using aseptic technique. 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 Chest Pain Symptom Assessment: Typical Angina Symptoms. Correct patient, site and procedure confirmed by cath team. Current diagnosis: NSTEMI. PERRLA. 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 Lungs clear x 5 lobes. Oxygen started at 2liters/min via nasal canula. bilateral groins was prepped with chloroprep then draped in the usual sterile fashion. Physician notified. Baseline sample Acquired. HR: 93 BPM. Current Diagnosis : NSTEMI. Physician arrived. Physician scrubbed in. Immediate Pre-Procedure Time Out. Correct Patient: Yes; Correct Procedure: Yes; Correct Site: Yes; Correct Patient Position: Yes; Correct Supplies: Yes; Dried Flammable Prep: Yes; Blood Products Available: N/A;. Lidocaine 1% infiltrated to the right groin. Arterial access obtained with micropuncture set. A 5 rwandan JL4 catheter in over wire. Catheter removed over the standard wire. A 5 rwandan JR4 catheter in over wire. Multiple views taken of right coronary artery. Multiple views taken of left coronary artery. Catheter removed over the standard wire. A 5 rwandan Angled Pig catheter in over wire. EDP Sample taken: LV 140/-19,6; HR: 99 BPM; SpO2: 97%. LV gram performed in CHOI @ 10 mL/second for a total of 30 mL. EDP Sample taken: LV 141/-11,8; HR: 98 BPM; SpO2: 96%. Pullback taken: LV 146/-16,10; AO 135/63(92); Mean: 8mmHg, Peak to Peak: 12mmHg, SEP: 21sec/min; HR: 99 BPM; SpO2: 96%. Catheter removed over the standard wire. ACT drawn. Results 229 seconds. Therapeutic limits - pre-heparin administration 90-150 seconds and monitoring heparin during a vascular procedure >250 seconds. 6 rwandan XB 3.5 guide catheter was inserted over the wire. IFR guidewire was advanced through the guide catheter to lesion in the distal Circ. IFR Result: 0.96. Wire out. Results checked. Guide catheter out. A Right femoral angiogram was performed to determine safe placement of closure device. ACT drawn. Results 301 seconds. Therapeutic limits - pre-heparin administration 90-150 seconds and monitoring heparin during a vascular procedure >250 seconds. Lidocaine 1% infiltrated to the right groin. A Angio-Seal VIP (St. Tristen) was successful obtaining hemostatsis at the Right Femoral artery insertion site. Post Procedure: Pulses reassessed and unchanged. PERRLA. 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 No VTE prophylaxis required. Medication's Wasted: Other = Fentanyl 50mcg Versed 1 mg. Total IV fluids: 50 mL. Complications: None. Estimated blood loss: 5mL-10mL. Responsiveness - Normal response to verbal stimuli; alert and oriented, PERRLA. Airway - Unaffected, no intervention required; spontaneous ventilation. Circulation: W/N/L, pulses unchanged. Nausea/Vomiting: No. Procedure completed. Patient transferred by bed to CPRU. Vital chart was stopped. Access Site Site: Right Femoral artery Sheath Size: 6 Fr Hemostasis Method: Angio-Seal VIP (St. Tristen) Hemostasis Success: Successful Procedure Medications Start: 9:03 AM Stop: 9:03 AM Medication: Versed Amount: 1 mg Route: I.V. Start: 9:07 AM Stop: 9:07 AM Medication: Fentanyl Amount: 25 mcg Route: I.V. Start: 9:09 AM Stop: 9:09 AM Medication: Versed Amount: 1 mg Route: I.V. Start: 9:10 AM Stop: 9:10 AM Medication: Fentanyl Amount: 25 mcg Route: I.V. Start: 9:18 AM Stop: 9:18 AM Medication: Versed Amount: 1 mg Route: I.V. Start: 9:25 AM Stop: 9:25 AM Medication: Heparin Amount: 3000 units Route: I.V. I, the attending physician, have reviewed and verified all procedure medications. Yes, all medications given per verbal order History/Risk Factors Hypertension: Yes Dyslipidemia: Yes Peripheral Arterial Disease (PAD): No Myocardial Infarction (KS): Yes Obesity: No Renal Disease: No Tobacco Use: Never Prior Interventions PCI: Yes CABG: No Valve Surgery: No Date of PCI: 06/03/2020 Report Signatures Finalized by Anders Dietrich MD on 01/07/2024 10:16 AM
[2024-01-07] MEDS: nitroglycerin drip 50 MG/250 ML PREMIX IV (08:27)
--- NOTE | 2024-01-07 08:27 | PC.NURSE ---
EKG was given to Dr. Desai in his office.
[2024-01-07 08:43] LABS: Thyroid Stimulating Hormone 1.94 uIU/mL (0.27-4.20)
--- NOTE | 2024-01-07 08:43 | ECG_ITS ---
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 Measurements Intervals [place] Rate: 87 P: 26 [place]: 154 QRS: 8 QRSD: 135 T: 33 QT: 392 QTc: 472 Interpretive Statements SINUS RHYTHM RIGHT BUNDLE BRANCH BLOCK [120+ ms QRS DURATION, UPRIGHT V1, 40+ ms S IN I/aVL/V4/V5/V6] Compared to ECG 06/03/2020 08:37:44 No significant changes Electronically Signed On 01-07-2024 19:06:39 CDT by Spencer Blakely M.D. [id number]
[2024-01-07 09:01] LABS: Estmated Average Glucose 120; Hemoglobin A1C 5.8 % (4.0-6.0)
--- NOTE | 2024-01-07 09:03 | W.PM.OPSUD ---
Surgery/Procedure H&P Update DATE OF PROCEDURE: January 07, 2024 DATE H&P PERFORMED: 01/06/24 H&P UPDATE INFORMATION: I have reviewed H&P completed within last 30 days, I have examined patient prior to procedure and No changes to prior documentation PREOP DIAGNOSIS: Unstable angina PRIMARY INDICATION FOR PROCEDURE: Unstable angina PLANNED PROCEDURE: Left heart cath with possible percutaneous coronary intervention PATIENT REASSESSED PRIOR TO SEDATION, WITH NO CHANGE NOTED: Yes PHYSICAL EXAM: alert, oriented x 3, clear to auscultation bilaterally and regular rate & rhythm AIRWAY EVAL/ANESTHESIA PLAN: normal airway, ASA III, Local Anesthesia, Risks, benefits & alternatives of sedation and/or procedure discussed and Patient agrees to continue as planned ADDITIONAL INFORMATION: Moderate sedation
--- NOTE | 2024-01-07 10:26 | US_ITS ---
WS: [id number] RIGHT UPPER QUADRANT ULTRASOUND HISTORY: elevated bili COMPARISON: Gallbladder ultrasound 01/02/2014 Liver: 15.2 cm in length. Poorly visualized liver. The entire liver is not well visualized. Portal Vein: Normal hepatopetal flow with monophasic waveform. Gallbladder: Normally distended with cholelithiasis. Several stones are noted in the gallbladder. No gallbladder wall thickening. CBD: 0.4 cm Pancreas: Not visualized. Right kidney: 10.7 cm in length. Normal size kidney. Simple cyst upper pole 6.6 x 6.5 x 6.2 cm. No hy dronephrosis. Aorta and IVC: Unremarkable abdominal aorta and IVC. No ascites. US/US gall bladder [id number] IMPRESSION: 1. Cholelithiasis without acute cholecystitis. 2. Long-term stability RIGHT renal cyst. 3. Poorly visualized liver. 4. Nonvisualization of the pancreas.
--- NOTE | 2024-01-07 10:26 | USCV_ITS ---
Tom Peguero Age: 68 Gender: M : 1955 Exam Date: 01/07/2024 20:26 Ordering Phys: Price Acharya MD Technologist: BERNARDA Exam Location: [facility] [place] Indication: chest pain, hx CAD s/p stents. BP: 137 / 76 HR: 92 Rhythm: Sinus Technical Quality: Adequate MEASUREMENTS (Male / Female) Normal Values 2D ECHO LV Diastolic Diameter PLAX 3.5 cm 4.2 - 5.9 / 3.9 - 5.3 cm IVS Diastolic Thickness 1.6 cm 0.6 - 1.0 / 0.6 - 0.9 cm IVS Systolic Thickness 1.7 cm LVPW Diastolic Thickness 2.1 cm 0.6 - 1.0 / 0.6 - 0.9 cm LVPW Systolic Thickness 1.6 cm LVOT Diameter 1.9 cm LV Ejection Fraction 2D Teich 63.1 % LV Ejection Fraction MOD 2C 75.8 % LV Ejection Fraction 2C AL 78.3 % LA Diameter 4.1 cm Aorta at Sinotubular Diameter 3.1 cm IVC Diameter 1.5 cm M-MODE LA Ao Ratio MM 1.3 AV Cusp Separation MM 2.2 cm DOPPLER AV Peak Velocity 92.0 cm/s LVOT Peak Velocity 78.0 cm/s AV Area Cont Eq vti 2.1 cm squared AV Area Cont Eq pk 2.4 cm squared MV Peak Velocity 122.0 cm/s MV Area PHT 4.2 cm squared Mitral E to A Ratio 0.7 TV Peak Velocity 266.0 cm/s TR Peak Velocity 280.0 cm/s TR Peak Gradient 31.4 mmHg TV Peak E Velocity 38.0 cm/s Right Atrial Pressure 3.0 mmHg Pulmonary Artery Systolic Pressu 34.4 mmHg PV Peak Velocity 111.0 cm/s FINDINGS Left Ventricle Navicular is normal in size. LV systolic function is normal with EF of 55 to 60%. No regional wall motion abnormalities are seen. Grade 1 diastolic dysfunction Right Ventricle Normal in size and function Right Atrium Normal in size Left Atrium Normal in size Mitral Valve Structurally normal mitral valve. Trace mitral regurgitation Aortic Valve Structurally normal aortic valve. No significant stenosis or regurgitation Tricuspid Valve Insufficient TR jet to calculate RVSP Pulmonic Valve Trace pulmonic regurgitation. Pericardium Normal Aorta Normal in size IVC Appears to be normal CONCLUSIONS LV systolic function is normal with EF of 55 to 60%. Grade 1 diastolic dysfunction. Trace mitral regurgitation. Trace pulmonic regurgitation. Anders Dietrich MD (Electronically Signed) Final Date: 08 January 2024 12:30 S
[2024-01-07] MEDS: sodium chloride 0.9% 1,000 ML 75 ML IV (10:34)
--- NOTE | 2024-01-07 11:30 | PC.NURSE ---
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 dressing dry and intact on right groin. angioseal vascular closure device used. no hematoma, swelling or bleeding. instructed and educated pt and on bedrest for 4 hrs and no bending and lifting right leg and hip. call light and urinal provided.
[2024-01-07 11:53] LABS: Lipase 113 U/L (13-60)
[2024-01-07] MEDS: metoclopramide 5 mg/mL SDV 2 mL 10 MG IVP (12:06)
--- NOTE | 2024-01-07 12:43 | ECG_ITS ---
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 Measurements Intervals [place] Rate: 109 P: 33 MD: 161 QRS: 31 QRSD: 135 T: 29 QT: 349 QTc: 470 Interpretive Statements SINUS TACHYCARDIA INDETERMINATE AXIS RIGHT BUNDLE BRANCH BLOCK [120+ ms QRS DURATION, UPRIGHT V1, 40+ ms S IN I/aVL/V4/V5/V6] Compared to ECG 01/07/2024 07:02:20 Indeterminate axis now present Sinus rhythm no longer present Electronically Signed On 01-07-2024 19:07:56 CDT by Spencer Blakely M.D. [id number]
[2024-01-07 12:47] LABS: Troponin 5 2HR Delta 0.00001 ABS# (0-10)
--- NOTE | 2024-01-07 13:12 | W.ED.CHESTPA ---
HPI - Chest Pain General: Chief Complaint: Chest Pain Stated Complaint: Chest Pain Time Seen by Provider: 01/07/24 06:38 Source: patient Mode of arrival: ambulatory History of Present Illness: 68-year-old male presents emergency room complaining of chest pain that woke him up around 1 AM this morning is a known history of coronary disease 3 and half years ago patient had a angiogram done here had a fourth stent placed about 2 years later he had another angiogram done in [place] a stent was placed at that time as well. He has had some diaphoresis and dyspnea with this this morning. He still complaining of chest comfort which she rates at a 6 out of 10. MD complaint: chest pain Pertinent past history: coronary artery disease Onset (ago): hour(s) Timing of current episode: episodic Onset: during rest Pain location: substernal Pain radiation: left shoulder Severity: moderate Quality: aching and heaviness Relieving factors: nothing Exacerbating factors: exertion Associated symptoms: Deny abdominal pain, dyspnea or fever(s) Review of Systems Const: Denies: fever(s) or chills Card: Denies: chest pain Resp: Denies: dyspnea GI: Denies: abdominal pain : Denies: dysuria, urinary frequency or urinary urgency Musc: Denies: neck pain or back pain Skin/Breast: Denies: rash PFSH ED PFSH: Medical History Depression Chronic back pain Urolithiasis Atherosclerotic heart disease of [place] coronary artery with other forms of angina pectoris EKG from 07/05/2020 EKG revealed bradycardia with a rate of [address]. [address]-T change Atypical chest pain Atherosclerotic heart disease of [place] coronary artery with unstable angina pectoris CAD (coronary artery disease) Hypertension Hyperlipidemia Arrhythmia Anxiety GERD (gastroesophageal reflux disease) Chronic prostatitis Surgical History Status post right inguinal hernia repair Hx of colonoscopy History of esophagogastroduodenoscopy (EGD) H/O laminectomy H/O shoulder surgery H/O heart artery stent total of 5 stents Family History Mother , 62 CAD (coronary artery disease) Father , at age 91 No problems noted. Social History Smoking and tobacco/nicotine status: never used tobacco/nicotine Alcohol intake: never Substance/Drug Use: never Adopted: No Caregiver/support person: No Lives independently: No Household members: spouse Marital status: Current occupational status: retired Current gender identity: Male Physical Exam Const: COMMON NORMALS: no acute distress GENERAL APPEARANCE: cooperative and comfortable ORIENTATION/CONSCIOUSNESS: Yes awake, Yes oriented to person, Yes oriented to place and Yes oriented to time HENMT: COMMON NORMALS: normocephalic, atraumatic and hearing grossly normal bilaterally HEAD & SCALP: normocephalic and atraumatic Resp: COMMON NORMALS: normal respiratory effort, No retractions, No use of accessory muscles and clear to auscultation bilaterally AUSCULTATION: clear to auscultation bilaterally Cardio: COMMON NORMALS: regular rate, regular rhythm and No murmurs present (Cardio) RATE: regular rate RHYTHM: regular rhythm GI: COMMON NORMALS: Soft to palpation and No hepatosplenomegaly present AUSCULTATION: Yes normoactive bowel sounds PALPATION: Yes Soft to palpation, No Tenderness to palpation present (GI), No Guarding due to palpation present (GI) and Yes No hepatosplenomegaly present Extremity: COMMON NORMALS: normal to inspection, capillary refill normal, no clubbing, cyanosis or edema, no calf tenderness and no pedal edema Neuro: SENSORIUM/ORIENTATION: Yes oriented to person, Yes oriented to place and Yes oriented to time Skin: COMMON NORMALS: no rashes or lesions noted GENERAL SKIN EXAM: no rashes or lesions noted Course Vital Signs: Vital signs: Vital Signs Temperature 98.9 F 01/07/24 12:00 Pulse Rate 99 01/07/24 12:00 Respiratory Rate 21 H 01/07/24 12:00 Blood Pressure 151/88 01/07/24 12:00 Pulse Oximetry 91 01/07/24 12:00 Oxygen Delivery Me thod Room Air 01/07/24 09:45 MDM - Chest Pain Medical Decision Making Patient continues to have chest discomfort. His history is quite concerning start him on heparin also switched him from topical nitro to IV nitro. Admit to hospitalist consult cardiology. Dr. Dietrich has seen the patient emergency room is taking him directly to the [facility] as he is continuing to have pain. EKG did not show any acute changes initial troponin less than 6 Medical Records I reviewed the patient's medical records. Lab Data I reviewed the patient's lab results. 01/07/24 06:45 01/07/24 06:45 Radiology Impressions Chest X-Ray 01/07/24 06:43 IMPRESSION: No acute cardiopulmonary abnormality identified. Gallbladder Ultrasound 01/07/24 10:26 IMPRESSION: 1. Cholelithiasis without acute cholecystitis. 2. Long-term stability RIGHT renal cyst. 3. Poorly visualized liver. 4. Nonvisualization of the pancreas. Laboratory Results WBC 8.07 10^3/uL (3.29-11.43) 01/07/24 06:45 RBC 5.34 10^6/uL (3.85-5.65) 01/07/24 06:45 Hgb 15.60 g/dL (11.27-16.99) 01/07/24 06:45 Hct 47.6 % (37-53) 01/07/24 06:45 MCV 89.1 fl (82-101) 01/07/24 06:45 MCH 29.2 pg (27-33) 01/07/24 06:45 MCHC 32.8 g/dL (30-55) 01/07/24 06:45 RDW 13.5 % (12.1-15.1) 01/07/24 06:45 Plt Count 118 10^3/cmm (157-399) L 01/07/24 06:45 MPV 9.2 fL (7.4-10.4) 01/07/24 06:45 Neut % (Auto) 86.8 % 01/07/24 06:45 Lymph % (Auto) 5.9 % 01/07/24 06:45 [place] % (Auto) 5.7 % 01/07/24 06:45 Eos % (Auto) 1.0 % 01/07/24 06:45 Baso % (Auto) 0.2 % 01/07/24 06:45 Neut # (Auto) 7.00 10^3/uL (1.8-7.7) 01/07/24 06:45 Lymph # (Auto) 0.5 10^3/uL (0.8-4.8) L 01/07/24 06:45 [place] # (Auto) 0.5 10^3/uL (0.2-0.9) 01/07/24 06:45 Eos # (Auto) 0.1 10^3/uL (0.0-0.8) 01/07/24 06:45 Baso # (Auto) 0.0 10^3/uL (0.0-0.1) 01/07/24 06:45 Nucleated RBC % (auto) 0 % 01/07/24 06:45 Nucleated RBCs # 0.0 /100WBC 01/07/24 06:45 Sodium 142 mmol/L (136-145) 01/07/24 06:45 Potassium 4.1 mmol/L (3.5-5.1) 01/07/24 06:45 Chloride 106 mmol/L (98-107) 01/07/24 06:45 Carbon Dioxide 21 mmol/L (22-29) L 01/07/24 06:45 Anion Gap 19.1 (5-19) H 01/07/24 06:45 BUN 15 mg/dL (8-23) 01/07/24 06:45 Creatinine 0.9 mg/dL (0.7-1.2) 01/07/24 06:45 GFR Calculation 84.4 mL/min (90-130) L 01/07/24 06:45 Glucose 133 mg/dL (65-115) H 01/07/24 06:45 Estimat Average Glucose 120 01/07/24 06:48 Hemoglobin A1c 5.8 % (4.0-6.0) 01/07/24 06:48 Calculated Osmolality 297 mOsm/kg (285-295) H 01/07/24 06:45 Calcium 9.0 mg/dL (8.5-10.5) 01/07/24 06:45 Total Bilirubin 1.7 mg/dL (0.15-1.2) H 01/07/24 06:45 AST 30 U/L (0-40) 01/07/24 06:45 ALT 43 U/L (0-41) H 01/07/24 06:45 Alkaline Phosphatase 77 U/L (40-130) 01/07/24 06:45 Troponin T Baseline < 6 ng/L (0-15) 01/07/24 06:45 Total Protein 7.8 g/dL (6.6-8.7) 01/07/24 06:45 Albumin 4.4 g/dL (3.5-5.2) 01/07/24 06:45 Globulin 3.4 g/dL (1.3-4.6) 01/07/24 06:45 Lipase 113 U/L (13-60) H 01/07/24 06:48 TSH 1.94 uIU/mL (0.27-4.20) 01/07/24 06:48 All radiology interpretation(s) finalized by discharge Discharge Plan Discharge Patient Disposition: Admitted As Inpatient Admit Provider: Price Acharya Clinical Impression: Unstable angina pectoris CAD (coronary artery disease) Qualifiers: Coronary Disease-Associated Artery/Lesion type: [place] artery [place] vs. transplanted heart: [place] heart Associated angina: with stable angina Qualified Code(s): I25.118 - Atherosclerotic heart disease of [place] coronary artery with other forms of angina pectoris Condition: Stable Coding Level of Care Code ED Polisher Numeral for Levi Daniel
[2024-01-07] MEDS: LORazepam 2 mg/mL INJ 1 mL 0.5 MG IVP ×2 (13:46→19:23)
[2024-01-07] MEDS: sodium chloride 0.9% 1,000 ML 125 ML IV ×2 (13:48→19:35)
[2024-01-07 15:33] LABS: Troponin 5 6HR Delta 0.00001 ng/L (0-12)
--- NOTE | 2024-01-07 16:02 | PC.NURSE ---
check on pt if nausea and dizziness are still on going He stated, no nausea or dizziness for the past hour. Just groggy.
--- NOTE | 2024-01-07 18:48 | PC.NURSE ---
echocardiogram staff informed me that pt is starting to get sick again, went to his room and pt reported he feels nauseated. i offered him the PRN ZOfran as standing order but pt refused, he said Ativan is the med that worked awhile ago. called hospitalist to notify him and get further order via cellphone and voalte. no response yet.
--- NOTE | 2024-01-07 18:59 | PC.NURSE ---
received call back from Hospitalist Received telephone order read back on Ativan 0.5 mg IVP PRN q4H PRN for Anxiety or Nausea.
[2024-01-07] MEDS: pantoprazole 40 mg SDV IVP (19:22)
[2024-01-07] MEDS: metoprolol tartrate 25 mg Tablet PO (19:23)
[2024-01-08] VITALS (8 sets, daily range): BP systolic 103–141; BP diastolic 61–82; PULSE 61–96; RESP 16–21; TEMP 36.6–37.4; O2SAT 93–96
[2024-01-08] MEDS: sodium chloride 0.9% 1,000 ML 125 ML IV (03:39)
[2024-01-08 04:33] LABS: Basophils % 0.2 %; Eosinophils % 0.2 %; Lymphocytes # 0.7 10^3/uL (0.8-4.8); Lymphocytes % 12.3 %; Mean Corpuscular HGB Conc 32.3 g/dL (30-55); Mean Corpuscular Hemoglobin 29.4 pg (27-33); Mean Corpuscular Volume 91.1 fl (82-101); Mean Platelet Volume 9.2 fL (7.4-10.4); Monocytes # 0.5 10^3/uL (0.2-0.9); Monocytes % 8.7 %; Neutrophils # 4.59 10^3/uL (1.8-7.7); Neutrophils % 78.4 %; Nucleated Red Blood Cells % 0 %; Platelet Count 104 10^3/cmm (157-399); Red Blood Count 4.83 10^6/uL (3.85-5.65); Red Cell Distribution Width 13.8 % (12.1-15.1); White Blood Count 5.85 10^3/uL (3.29-11.43)
[2024-01-08 04:45] LABS: Alanine Aminotransferase 28 U/L (0-41); Alkaline Phosphatase 57 U/L (40-130); Anion Gap 14.3 (5-19); Aspartate Amino Transferase 17 U/L (0-40); Blood Urea Nitrogen 18 mg/dL (8-23); Calcium 8.1 mg/dL (8.5-10.5); Carbon Dioxide 22 mmol/L (22-29); Chloride 106 mmol/L (98-107); Creatinine Clr Calc Pharmacy 81.0542; Globulin 2.6 g/dL (1.3-4.6); Glomerular Filtration Rate 84.4 mL/min (90-130); Glucose 119 mg/dL (65-115); Magnesium 2.1 mg/dL (1.7-2.3); Osmolality Calculated 291 mOsm/kg (285-295); Potassium 3.3 mmol/L (3.5-5.1); Sodium 139 mmol/L (136-145); Total Bilirubin 2.1 mg/dL (0.15-1.2); Total Protein 6.6 g/dL (6.6-8.7)
[2024-01-08 04:54] LABS: Lipase 21 U/L (13-60)
[2024-01-08] MEDS: pantoprazole 40 mg SDV IVP ×2 (05:26→18:31)
[2024-01-08] MEDS: clopidogrel 75 mg Tablet PO (05:27)
[2024-01-08] MEDS: LORazepam 2 mg/mL INJ 1 mL 0.5 MG IVP (06:11)
[2024-01-08] MEDS: potassium chloride ER 20 mEq Tablet PO (06:43)
[2024-01-08 06:47] LABS: Bilirubin Urine Neg (Negative); Blood Urine Neg (Negative); Glucose Urine UA Norm (Normal); Ketones Urine 1+ (Negative); Nitrate Urine Negative (Negative); Protein Urine Neg (Negative); Urine Appearance Clear (CLEAR); Urine Color Yellow (Yellow); pH Urine 5 (5-7)
[2024-01-08 06:48] LABS: Add Urine Culture? No; Bacteria Urine TRACE /hpf; Leukocyte Esterase Urine Negative (Negative); Mucus Urine 2+ /hpf; RBC Urine 0-4 /hpf (0-2); Squamous Epithelial Cell Urine 0-4 /hpf (0-5); Urobilinogen Urine 1 mg/dL (Negative)
--- NOTE | 2024-01-08 07:20 | CT_ITS ---
WS: [id number] CT ABDOMEN PELVIS TECHNIQUE: Contrast-enhanced CT of the abdomen and pelvis with coronal and sagittal reformatted image s. CLINICAL INFORMATION: increased LFT's COMPARISON: None. DLP: 610.[address] scans at [facility] use at least one of these dose optimization techniques: automated e xposure control; mA and/or kV adjustment per patient size (includes targeted exams where dose is matc hed to clinical indication); or iterative reconstruction. FINDINGS: Diffuse fluid dilatation of the colon with air-fluid levels. Normal appendix. Fluid distended small b owel loops with air-fluid levels in the mid abdomen and RIGHT lower quadrant. No visualized transitio n point. Findings suspicious for adynamic ileus. Enhancing small bowel loops in the RIGHT lower quadr ant can be seen with small bowel enteritis. Subsegmental atelectasis LEFT lower lobe. Diffuse fatty infiltration of the liver. Multiple small hep atic cysts some are too small to characterize. Cholelithiasis. No gallbladder wall thickening or kasi cholecystic fluid. Normal portal vein and splenic vein. Fluid distention of the stomach with air-flui d level. Splenic granulomas. Hepatomegaly and splenomegaly. Mild pancreatic parenchymal enhancement. Celiac an d SMA are patent. Aortic calcification. Markedly enlarged heterogeneously enhancing nodular prostate measuring 6.5 x 4.6 cm. Adrenal glands a re normal. No hydronephrosis in either kidney. Large bilateral renal cysts measuring 9.9 x 7.6 on the LEFT and 7.2 x 6[address]/CT abdomen pelvis w con* [id number] IMPRESSION: 1. Suspect small bowel and colon adynamic ileus. Enhancing distal small bowel loops can be seen with small bowel enteritis. 2. Markedly distended stomach with air-fluid level and small esophageal hernia . 3. Cholelithiasis. No gallbladder wall thickening. 4. Markedly enlarged prostate suspicious for neoplasia measuring 6.4 x 4.6 cm. Recommend correlation PSA.
--- NOTE | 2024-01-08 07:49 | PM.PN ---
Subjective Subjective: Patient having diarrhea today. Coronary angiogram yesterday did not reveal any significant CAD. Moderate left circumflex artery stenosis was confirmed to be nonischemic by IFR. Vitals/I&O/Wt Last Vital Signs Temp 99.3 F 01/08/24 00:00 Pulse 88 01/08/24 04:00 Resp 17 01/08/24 04:00 BP 115/67 01/08/24 04:00 Pulse Ox 94 01/08/24 04:00 O2 Del Method Room Air 01/07/24 09:45 01/07/24 01/08/24 01/08/24 22:59 06:59 14:59 Intake Total 1832.917 / 2075.417 1000 / 3075.417 Balance 1832.917 / 2075.417 1000 / 3075.417 Weight last 48 hrs Weight 165 lb Physical Exam Narrative: GENERAL: Patient is alert, awake and oriented x3. [] NECK: No jugular vein distension. [] HEENT: No cyanosis. No icterus. No pallor. [] HEART: Regular S1 and S2. No murmur, rub or gallop. [] LUNGS: Clear to auscultate bilaterally. [] CENTRAL NERVOUS SYSTEM: Grossly nonfocal. [] EXTREMITIES: Lower extremities with no edema bilaterally. Data 01/09/24 03:03 01/09/24 03:03 A&P Assessment and plan (1) Chest pain: Qualifiers: Chest pain type: precordial pain Qualified Code(s): R07.2 - Precordial pain (2) CAD (coronary artery disease): Qualifiers: Coronary Disease-Associated Artery/Lesion type: [place] artery [place] vs. transplanted heart: [place] heart Associated angina: with stable angina Qualified Code(s): I25.118 - Atherosclerotic heart disease of [place] coronary artery with other forms of angina pectoris (3) Hypertension: Qualifiers: Hypertension type: essential hypertension Qualified Code(s): I10 - Essential (primary) hypertension (4) Hyperlipidemia: Qualifiers: Hyperlipidemia type: mixed hyperlipidemia Qualified Code(s): E78.2 - Mixed hyperlipidemia (5) Elevated bilirubin: Plan Coronary angiogram did not reveal severe CAD. Medical management. Continue aspirin and Plavix. He is having diarrhea and nausea. Management per primary team. Echo shows normal LV systolic function. Thank you for involving us with care of this patient. We will continue to follow. Please call with questions. Attestations Medical Necessity Statement*: Care expected to cross 2 midnights. Coding Level of Care Code Acute Code for Levi Fwd Diagnoses Chest pain R07.2 Chest pain type: precordial pain Coronary artery disease of [place] artery of [place] heart with stable angina pectoris I25.118 Coronary Disease-Associated Artery/Lesion type: [place] artery [place] vs. transplanted heart: [place] heart Associated angina: with stable angina Essential hypertension I10 Hypertension type: essential hypertension Mixed hyperlipidemia E78.2 Hyperlipidemia type: mixed hyperlipidemia Elevated bilirubin R17
[2024-01-08] MEDS: isosorbide mononitrate ER 30 mg Tablet PO (09:50)
[2024-01-08] MEDS: metoprolol tartrate 25 mg Tablet PO ×2 (09:50→18:30)
[2024-01-08] MEDS: sertraline 50 mg Tablet 25 MG PO (09:51)
[2024-01-08] MEDS: aspirin 81 mg EC Tablet PO (09:51)
[2024-01-08] MEDS: iohexol 350 mg/mL 500 mL Btl (per mL) IV (10:25)
--- NOTE | 2024-01-08 10:27 | PC.CHAP ---
Pastoral Care Encounter/Spiritual Assessment Type of Contact [] Declined soda tester visit [] Patient/Family/Request visit [] Outpatient visit [] Follow-up visit [] Physician referral [] Code/Alert [x] Routine visit [] Staff referral [] Actively dying [] Patient sleeping [x] Family support [] [] Out of room [] Palliative care [] [] Receiving care in room [] Pre-surgical visit [] Trauma [] Long length of stay [] ICU visit [] Other: Relational/Emotional Strength [] Patient feels connected with others/family/visitors/staff [] Distress [] Loneliness/isolation [] Abandonment Spirituality of Patient [x] Person of Christin [] Attends Restorationist of their Christin [] Believes in Prayer [] Reads Bible or Hinduism materials [] There are Spiritual issues to be addressed Emt Driver Interventions [x] Prayer [x] Active listening [x [] Spiritual counseling [] Bereavement support [] Provided bereavement packet [] Provided Bible/devotional materials [] Provided toy/stuffed animal, coloring book to patient or family member [] Provided Communion [] Anointing/[place] [] Salvationx[x] Completed spiritual assessment [] Other: Impact on Illness or Injury [] Angry [] Fearful [] Anxious [] Often cries [] Exhaustion [] Unable to work [] Unable to attend lutheran [] Unable to walk/stand [] Unable to read [] Unable to drive [] Unable to eat/drink [] Unable to sleep [] Unable to be with family [] Patient intubated [] Other: Summary Time spent with patient 15 min
--- NOTE | 2024-01-08 13:06 | P.PN_ITS ---
Subjective 2 Subjective: Saw earlier today, as well as his afternoon. Started having significant diarrhea early this morning. Nausea is better but still present. No further vomiting. Low-grade temperatures noted last night. No obvious blood in stool. No significant abdominal pain. Unable to drink enough to keep up with loose stool. Medications: Reviewed: Yes Vitals/I&O/Wt Last Vital Signs Temp 97.9 F 01/08/24 11:46 Pulse 78 01/08/24 11:46 Resp 18 01/08/24 11:46 BP 141/79 01/08/24 11:46 Pulse Ox 93 01/08/24 11:46 O2 Del Method Room Air 01/08/24 11:46 01/07/24 01/08/24 01/08/24 22:59 06:59 14:59 Intake Total 1832.917 / 2075.417 1000 / 3075.417 1222 / 1222 Balance 1832.917 / 2075.417 1000 / 3075.417 1222 / 1222 Weight last 48 hrs Weight 74.843 kg Physical Exam 2 Narrative: General no distress Neck is supple no lymphadenopathy thyromegaly Cardiovascular regular rate and rhythm, no murmur. No S3 or S4. Lungs clear no wheezing or crackles Abdomen is soft with positive bowel sounds. No obvious organomegaly Extremities no sinus clubbing edema, cap refill brisk Angiogram site without significant hematoma Data 01/08/24 03:15 01/08/24 03:15 A&P Assessment and plan (1) Chest pain: Concern this is unstable angina even though initial cardiac enzyme negative. Initially anticoagulated with heparin. With no positive findings of flow- limiting lesions on angiogram heparin drip has been discontinued Will continue other treatment as he was on previously for his coronary artery disease Continue Plavix and aspirin Continue beta-connor, statin Appreciate cardiology consult Qualifiers: Chest pain type: precordial pain Qualified Code(s): R07.2 - Precordial pain (2) Hyperglycemia: A1c not elevated, TSH normal (3) Elevated bilirubin: Gallbladder ultrasound with gallstones. No evidence of obstruction. CT done secondary to elevated lipase, and poor visualization of liver and pancreas on ultrasound. This demonstrated enteritis, small hiatal hernia, enlarged prostate. Plan Enteritis, consistent with gastroenteritis. Stool studies ordered. No indication for antibiotics currently. Continue to follow closely. At this point he is having 6 significant loose stool and unable to take significant fluid quantity and he is at high risk for dehydration. Continue nausea medication, supportive care. Await stool studies. Changed to regular admission as he will be here until tomorrow for his supportive care. Hopefully discharge at that time. Continue IV fluids and recheck lab in the morning. Continue IV Protonix Mild hypokalemia, supplement History of reflux. Continue Protonix Depression. I had an extensive discussion with the patient this morning regarding this as well as anxiety. After this discussion, he would like to start on Zoloft 25 mg daily. I informed his primary care provider, who will continue to follow-up regarding this condition. Multiple other medical problems, continue current medications Old records from [place] were reviewed. We did receive an MRI, CTA head and neck there at a recent ER visit with no significant or concerning findings in relation to his dizziness. Full code Lovenox for DVT prophylaxis Attestations 2 Medical Necessity Statement*: Needs continued hospital stay secondary to development of significant enteritis with diarrhea at risk for significant dehydration following angiogram. Changed to regular admission. Diagnoses Chest pain R07.2 Chest pain type: precordial pain Hyperglycemia R73.9 Elevated bilirubin R17 Time Spent (min) 42
[2024-01-08] MEDS: enoxaparin 40 mg/0.4 mL Syringe SUBCUT (14:16)
[2024-01-08] MEDS: sodium chloride 0.9% 1,000 ML 100 ML IV ×2 (14:19→20:24)
[2024-01-09 02:59] LABS: C.Diff PCR (Lab) POSITIVE (Negative)
[2024-01-09 03:47] LABS: Clostridioides Difficile Toxin NEGATIVE (Negative)
[2024-01-09 03:51] VITALS: BP 115/60; PULSE 68; RESP 19; TEMP 36.3; O2SAT 94
[2024-01-09 03:53] LABS: Basophils % 0.2 %; Eosinophils # 0.3 10^3/uL (0.0-0.8); Eosinophils % 7.1 %; Hematocrit 37.1 % (37-53); Lymphocytes # 1.3 10^3/uL (0.8-4.8); Lymphocytes % 27.9 %; Mean Corpuscular HGB Conc 32.1 g/dL (30-55); Mean Corpuscular Hemoglobin 29.6 pg (27-33); Mean Corpuscular Volume 92.3 fl (82-101); Mean Platelet Volume 9.3 fL (7.4-10.4); Monocytes # 0.5 10^3/uL (0.2-0.9); Monocytes % 10.9 %; Neutrophils % 53.7 %; Nucleated Red Blood Cells % 0 %; Platelet Count 95 10^3/cmm (157-399); Red Blood Count 4.02 10^6/uL (3.85-5.65); White Blood Count 4.66 10^3/uL (3.29-11.43)
[2024-01-09 04:11] LABS: Alanine Aminotransferase 18 U/L (0-41); Albumin Level 3.3 g/dL (3.5-5.2); Alkaline Phosphatase 47 U/L (40-130); Anion Gap 10.4 (5-19); Aspartate Amino Transferase 15 U/L (0-40); Blood Urea Nitrogen 14 mg/dL (8-23); Calcium 7.8 mg/dL (8.5-10.5); Carbon Dioxide 22 mmol/L (22-29); Chloride 109 mmol/L (98-107); Creatinine Clr Calc Pharmacy 81.0542; Globulin 2.1 g/dL (1.3-4.6); Glomerular Filtration Rate 84.4 mL/min (90-130); Glucose 94 mg/dL (65-115); Magnesium 2.1 mg/dL (1.7-2.3); Osmolality Calculated 286 mOsm/kg (285-295); Potassium 3.4 mmol/L (3.5-5.1); Sodium 138 mmol/L (136-145); Total Bilirubin 1.7 mg/dL (0.15-1.2); Total Protein 5.4 g/dL (6.6-8.7)
[2024-01-09 06:00] VITALS: PULSE 62
[2024-01-09] MEDS: clopidogrel 75 mg Tablet PO (06:05)
[2024-01-09] MEDS: sodium chloride 0.9% 1,000 ML 100 ML IV (06:05)
[2024-01-09] MEDS: pantoprazole 40 mg SDV IVP (06:05)
[2024-01-09 07:09] VITALS: BP 142/79; PULSE 64; RESP 25; TEMP 36.7; O2SAT 95
--- NOTE | 2024-01-09 07:44 | PM.PN ---
Vitals/I&O/Wt Last Vital Signs Temp 98.0 F 01/09/24 07:09 Pulse 64 01/09/24 07:09 Resp 25 H 01/09/24 07:09 BP 142/79 01/09/24 07:09 Pulse Ox 95 01/09/24 07:09 O2 Del Method Room Air 01/09/24 07:09 01/08/24 01/09/24 01/09/24 22:59 06:59 14:59 Intake Total 1048.333 / 2270.333 968.333 / 3238.666 Balance 1048.333 / 2270.333 968.333 / 3238.666 Weight last 48 hrs Weight 170 lb 8 oz Data 01/09/24 03:03 01/09/24 03:03 Coding Level of Care Code Acute Code for Chg Fwd
--- NOTE | 2024-01-09 09:03 | PM.DCS ---
Discharge Providers Date of Admission: 01/08/24 13:11 Date of Discharge: January 09, 2024 Attending Provider at Admission: Price Acharya MD Attending Provider at Discharge: Price Acharya MD Primary Care Provider: Sony Swift MD Diagnoses at Discharge Discharge Diagnosis (1) Chest pain: Status: Acute Qualifiers: Chest pain type: precordial pain Qualified Code(s): R07.2 - Precordial pain (2) CAD (coronary artery disease): Status: Acute Qualifiers: Associated angina: with stable angina Coronary Disease-Associated Artery/Lesion type: [place] artery [place] vs. transplanted heart: [place] heart Qualified Code(s): I25.118 - Atherosclerotic heart disease of [place] coronary artery with other forms of angina pectoris (3) Hypertension: Status: Acute Qualifiers: Hypertension type: essential hypertension Qualified Code(s): I10 - Essential (primary) hypertension (4) Hyperlipidemia: Status: Acute Qualifiers: Hyperlipidemia type: mixed hyperlipidemia Qualified Code(s): E78.2 - Mixed hyperlipidemia (5) Elevated bilirubin: Status: Acute Reason for Visit Reason for Visit: Chest Pain Hospital Course Hospital Course Is a 68-year-old white male who presented to the emergency department on January 06 with chest discomfort and nausea. There was concern regarding unstable angina. He was anticoagulated, continued on his medications for his chronic coronary disease of Plavix aspirin and beta-connor as well as statin. Cardiology was consulted and angiogram was performed same day secondary to persistent discomfort. This demonstrated no significant flow-limiting lesions. He returned to the floor and had continued nausea. Gallbladder ultrasound was done which demonstrated cholelithiasis with no evidence of cholecystitis. CT scan was done the second day after his angiogram. This was done with radiological dye. It demonstrated some enteritis, and an enlarged prostate. At this point he started having diarrhea. Stool studies were obtained, he was hydrated, and continue to follow closely. Vomiting abated as well as nausea, and by January 08 diarrhea had significantly improved. C. difficile PCR was positive but toxin confirmation test was negative. He was put on vancomycin orally nonetheless. Other stool studies were pending but with his clinical improvement it was thought he could go home and follow-up with his primary care provider. I also discussed all abnormalities on CT scan including enlarged prostate which she will discuss with his primary. He will finish up a 10-day course of vancomycin. He was given opportunity to ask questions and agreed with the plan. Echocardiogram was also performed which was largely normal. During his course of hospital stay he discussed significant anxiety regarding his coronary disease and depression. He was placed on Zoloft. I discussed this with his primary care provider who will continue to follow it. Risks and benefits were discussed. Physical Exam Narrative: General exam no distress Neck is supple Cardiovascular regular rate and rhythm Lungs clear Abdomen soft Extremities no cyanosis clubbing edema Discharge Data Studies Completed and Pending Completed Studies During Hospitalization Category Date Time Status CT abdomen pelvis w con* [id number] Routine Cat Scan 01/08/24 07:20 Completed SKIN DIVER request for service Routine Exams 01/07/24 08:21 Completed XR chest 1V portable [id number] Stat Exams 01/07/24 06:43 Completed CV. echo complete* [id number] Routine Ultrasound 01/07/24 10:26 Completed US gall bladder [id number] Routine Ultrasound 01/07/24 10:26 Completed Pending at discharge Category Date Time Status Platelet Count Q2D Lab 01/11/24 04:00 Ordered Rota Virus AG Stool Routine Lab 01/08/24 09:00 Received Stool Culture - Enteric [Salmonella / Shigella / Campy] Lab 01/08/24 09:00 Received Routine Radiology Impressions Chest X-Ray 01/07/24 06:43 IMPRESSION: No acute cardiopulmonary abnormality identified. Gallbladder Ultrasound 01/07/24 10:26 IMPRESSION: 1. Cholelithiasis without acute cholecystitis. 2. Long-term stability RIGHT renal cyst. 3. Poorly visualized liver. 4. Nonvisualization of the pancreas. Abdomen/Pelvis CT 01/08/24 07:20 IMPRESSION: 1. Suspect small bowel and colon adynamic ileus. Enhancing distal small bowel loops can be seen with small bowel enteritis. 2. Markedly distended stomach with air-fluid level and small esophageal hernia. 3. Cholelithiasis. No gallbladder wall thickening. 4. Markedly enlarged prostate suspicious for neoplasia measuring 6.4 x 4.6 cm. Recommend correlation PSA. Laboratory Results WBC 4.66 10^3/uL (3.29-11.43) 01/09/24 03:03 RBC 4.02 10^6/uL (3.85-5.65) 01/09/24 03:03 Hgb 11.90 g/dL (11.27-16.99) 01/09/24 03:03 Hct 37.1 % (37-53) 01/09/24 03:03 MCV 92.3 fl (82-101) 01/09/24 03:03 MCH 29.6 pg (27-33) 01/09/24 03:03 MCHC 32.1 g/dL (30-55) 01/09/24 03:03 RDW 14.0 % (12.1-15.1) 01/09/24 03:03 Plt Count 95 10^3/cmm (157-399) L 01/09/24 03:03 MPV 9.3 fL (7.4-10.4) 01/09/24 03:03 Neut % (Auto) 53.7 % 01/09/24 03:03 Lymph % (Auto) 27.9 % 01/09/24 03:03 [place] % (Auto) 10.9 % 01/09/24 03:03 Eos % (Auto) 7.1 % 01/09/24 03:03 Baso % (Auto) 0.2 % 01/09/24 03:03 Neut # (Auto) 2.50 10^3/uL (1.8-7.7) 01/09/24 03:03 Lymph # (Auto) 1.3 10^3/uL (0.8-4.8) 01/09/24 03:03 [place] # (Auto) 0.5 10^3/uL (0.2-0.9) 01/09/24 03:03 Eos # (Auto) 0.3 10^3/uL (0.0-0.8) 01/09/24 03:03 Baso # (Auto) 0.0 10^3/uL (0.0-0.1) 01/09/24 03:03 Nucleated RBC % (auto) 0 % 01/09/24 03:03 Nucleated RBCs # 0.0 /100WBC 01/09/24 03:03 Sodium 138 mmol/L (136-145) 01/09/24 03:03 Potassium 3.4 mmol/L (3.5-5.1) L 01/09/24 03:03 Chloride 109 mmol/L (98-107) H 01/09/24 03:03 Carbon Dioxide 22 mmol/L (22-29) 01/09/24 03:03 Anion Gap 10.4 (5-19) 01/09/24 03:03 BUN 14 mg/dL (8-23) 01/09/24 03:03 Creatinine 0.9 mg/dL (0.7-1.2) 01/09/24 03:03 GFR Calculation 84.4 mL/min (90-130) L 01/09/24 03:03 Glucose 94 mg/dL (65-115) 01/09/24 03:03 Estimat Average Glucose 120 01/07/24 06:48 Hemoglobin A1c 5.8 % (4.0-6.0) 01/07/24 06:48 Calculated Osmolality 286 mOsm/kg (285-295) 01/09/24 03:03 Calcium 7.8 mg/dL (8.5-10.5) L 01/09/24 03:03 Magnesium 2.1 mg/dL (1.7-2.3) 01/09/24 03:03 Total Bilirubin 1.7 mg/dL (0.15-1.2) H 01/09/24 03:03 AST 15 U/L (0-40) 01/09/24 03:03 ALT 18 U/L (0-41) 01/09/24 03:03 Alkaline Phosphatase 47 U/L (40-130) 01/09/24 03:03 Troponin T Baseline < 6 ng/L (0-15) 01/07/24 06:45 Troponin T 120 Minute 6.00 ng/L (0-15) 01/07/24 12:05 Delta Troponin T 0.22138 ABS# (0-10) 01/07/24 12:05 Troponin T Hi Sens 6Hr 6.00 ng/L (0-15) 01/07/24 14:50 Troponin T Hi Sens 6Hr Delta 0.09641 ng/L (0-12) 01/07/24 14:50 Total Protein 5.4 g/dL (6.6-8.7) L 01/09/24 03:03 Albumin 3.3 g/dL (3.5-5.2) L 01/09/24 03:03 Globulin 2.1 g/dL (1.3-4.6) 01/09/24 03:03 Lipase 21 U/L (13-60) 01/08/24 03:15 TSH 1.94 uIU/mL (0.27-4.20) 01/07/24 06:48 Urine Color Yellow (Yellow) 01/08/24 06:00 Urine Appearance Clear (CLEAR) 01/08/24 06:00 Urine pH 5 (5-7) 01/08/24 06:00 Ur Specific [place] 1.020 (1.005-1.030) 01/08/24 06:00 Urine Protein Neg (Negative) 01/08/24 06:00 Urine Glucose (UA) Norm (Normal) 01/08/24 06:00 Urine Ketones 1+ (Negative) H 01/08/24 06:00 Urine Blood Neg (Negative) 01/08/24 06:00 Urine Nitrate Negative (Negative) 01/08/24 06:00 Urine Bilirubin Neg (Negative) 01/08/24 06:00 Urine Urobilinogen 1 mg/dL (Negative) H 01/08/24 06:00 Ur Leukocyte Esterase Negative (Negative) 01/08/24 06:00 Urine RBC 0-4 /hpf (0-2) H 01/08/24 06:00 Urine WBC 5-10 /hpf (0-5) H 01/08/24 06:00 Ur Squamous Epith Cells 0-4 /hpf (0-5) H 01/08/24 06:00 Amorphous Sediment Not Reportable 01/08/24 06:00 Urine Bacteria Trace /hpf (NONE) 01/08/24 06:00 Urine Mucus 2+ /hpf 01/08/24 06:00 C. difficile (PCR) Positive (Negative) H 01/08/24 23:30 C.difficile Tox Confrm Negative (Negative) 01/08/24 23:30 Vitals Last Vital Signs Temp 98.0 F 01/09/24 07:09 Pulse 64 01/09/24 07:09 Resp 25 H 01/09/24 07:09 BP 142/79 01/09/24 07:09 Pulse Ox 95 01/09/24 07:09 O2 Del Method Room Air 01/09/24 07:09 Discharge Plan Discharge Patient Disposition: Home Condition: Stable Prescriptions: New vancomycin 125 mg Capsule 125 mg PO Q6H Qty: 40 0RF sertraline 50 mg Tablet 25 mg PO DAILY Qty: 30 0RF Continued nitroglycerin 0.4 mg tablet, sublingual 0.4 mg sublingual Q5M PRN (Reason: chest pain) 30 Days Qty: 30 3RF Rx Instructions: until response; do not exceed 3 doses per episode omeprazole 40 mg capsule,delayed release(DR/EC) 40 mg PO DAILY Qty: 30 11RF multivitamin [Daily Multi-Vitamin] Tablet 1 tab PO QAM isosorbide mononitrate 30 mg tablet extended release 24 hr 30 mg PO DAILY clopidogrel 75 mg tablet 75 mg PO QAM [place] Twice Daily Relief 0.1 % drops 1 drp ophthalmic (eye) BID PRN (Reason: allergies) Rx Instructions: separate doses by at least 6-8 hours metoprolol tartrate 25 mg tablet 25 mg PO BID rosuvastatin 40 mg tablet 40 mg PO DAILY aspirin 81 mg tablet,delayed release (DR/EC) 81 mg PO DAILY Discharge Orders: Discharge Order (Routine); Ordered 01/09/24 Ordered By: Price Acharya Referrals: Mehnaz Porter FNP [Nurse Practitioner] - 02/04/24 3:30 pm Sony Swift MD [Primary Care Provider] - 01/16/24 12:20 pm Discharge Diet: Low Fat Discharge Activity: Increase activity as tolerated Patient Instructions: Sertraline (By mouth) (Zoloft), Vancomycin (By mouth), Hyperglycemia, Angina (DC), Low Fat Diet (GEN), Heart Healthy Diet (ED), Hypokalemia (DC), Gastroenteritis (DC), C. Diff (Clostridioides Difficile) Infection (DC), Chest Pain Stoplight, Opioid Safety Activity Restrictions/Additional Instructions: Low-fat diet Take all medicine as prescribed Follow-up with your primary care provider 3 to 5 days. They will be following up sertraline as well as enlarged prostate in addition to your hospital stay. Return for any concerns Discharge Attestations Time Spent in Discharge Care*: greater than 30 min Status at Discharge: Cognitive status at discharge: cognitively intact, Behavioral status at discharge: cooperative, Quality Metrics Clinical Quality Measures [ No reported AMI, CVA or VTE this stay] Coding Level of Care Code 55206 Total time (in minutes) for Discharge: 36 Diagnoses Chest pain R07.2 Chest pain type: precordial pain Coronary artery disease of [place] artery of [place] heart with stable angina pectoris I25.118 Associated angina: with stable angina Coronary Disease-Associated Artery/Lesion type: [place] artery [place] vs. transplanted heart: [place] heart Essential hypertension I10 Hypertension type: essential hypertension Mixed hyperlipidemia E78.2 Hyperlipidemia type: mixed hyperlipidemia Elevated bilirubin R17
[2024-01-09] MEDS: isosorbide mononitrate ER 30 mg Tablet PO (09:23)
[2024-01-09] MEDS: potassium chloride ER 20 mEq Tablet 40 MEQ PO (09:23)
[2024-01-09] MEDS: vancomycin 125 mg Capsule PO (09:24)
[2024-01-09] MEDS: aspirin 81 mg EC Tablet PO (09:24)
[2024-01-09] MEDS: sertraline 50 mg Tablet 25 MG PO (09:24)
[2024-01-09] MEDS: metoprolol tartrate 25 mg Tablet PO (09:24)
--- NOTE | 2024-01-09 10:22 | PC.NURSE ---
called [facility] pharmacy to transfer the new Rx to [facility] pharmacy due to his preferred of choice.
--- NOTE | 2024-01-09 11:56 | PC.NURSE ---
pt is alert, oriented w/person,time, place and situation her eyes are still mildy itchy and burning but the redness are getting better. Dubose catheter is removed, cath tip is intact. as ordered. PT in room for therapy.
== END 2024-01-09 11:16 | disposition home or self-care (01) | DRG 287 ==
LOC: ER 07:37 → CSU 10:58
PROVIDERS: Internal Medicine; Admitting Provider Internal Medicine; Emergency Provider Family Medicine; PCP Family Medicine; Visit Provider Internal Medicine
PROC: 4A023N7 Measurement of Cardiac Sampling and Pressure, Left Heart, Percutaneous Approach (ICD-10-PCS; principal; 2024-01-07 09:00)
DX: I25.118 Atherosclerotic heart disease of native coronary artery with other forms of angina pectoris (principal); I10 Essential (primary) hypertension; E78.5 Hyperlipidemia, unspecified; E11.65 Type 2 diabetes mellitus with hyperglycemia; E87.6 Hypokalemia; Z79.02 Long term (current) use of antithrombotics/antiplatelets; Z79.82 Long term (current) use of aspirin; K80.20 Calculus of gallbladder without cholecystitis without obstruction; K52.9 Noninfective gastroenteritis and colitis, unspecified; N40.0 Benign prostatic hyperplasia without lower urinary tract symptoms; B96.89 Other specified bacterial agents as the cause of diseases classified elsewhere; Z95.5 Presence of coronary angioplasty implant and graft; F41.9 Anxiety disorder, unspecified; F32.A Depression, unspecified; K21.9 Gastro-esophageal reflux disease without esophagitis
CPT/HCPCS: 36415; 71045; 74177; 76705; 80053; 81001; 83036; 83690; 83735; 84443; 84484; 85025; 85347; 87045; 87324; 87425; 87427; 87449; 87493; 93005; 93306; 93458; 93571; 96365; 96366; 96367; 96372; 96374; 96375; 99152; 99153; 99291; C1760; C1769; C1887; C1894; C9113; G0269; G0378; J1644; J1650; J2060; J2250; J2405; J2765; J3010; J3490; J7030; Q9967

== ENCOUNTER → 2024-01-16 12:41 | Outpatient (BNVA) | payer MEDICARE, OTHER, SELFPAY | PROVIDERS: PCP Family Medicine; Visit Provider Family Medicine | DX: N40.0 Benign prostatic hyperplasia without lower urinary tract symptoms (principal) | CPT/HCPCS: 84153 ==

== ENCOUNTER 2024-01-21 18:24 | Emergency (ER) | payer MEDICARE, OTHER, SELFPAY ==
[2024-01-21] VITALS (7 sets, daily range): BP systolic 140–157; BP diastolic 82–97; PULSE 64–76; RESP 16; TEMP 37; O2SAT 95–98; BMI 24.3
--- NOTE | 2024-01-21 19:21 | CTR_ITS ---
PROCEDURE INFORMATION: Exam: CTA Head With Contrast, Arteriography Exam date and time: 01/21/2024 8:30 PM Age: 68 years old Clinical indication: Numbness; Additional info: Numbness tingling right 1,2,3 fingers, right gums lips face TECHNIQUE: Imaging protocol: Computed tomographic angiography of the head with contrast. Exam focused on the arteries. 3D rendering (Not supervised by radiologist): MIP and/or 3D reconstructed images were created by the technologist. Radiation optimization: All CT scans at this facility use at least one of these dose optimization techniques: automated exposure control; mA and/or kV adjustment per patient size (includes targeted exams where dose is matched to clinical indication); or iterative reconstruction. Contrast material: OMNI 350; Contrast volume: 85 ml; Contrast route: INTRAVENOUS (IV); COMPARISON: CT head wo con* [id number] 01/21/2024 7:41 PM RADIATION DOSE METRICS: Total DLP (mGy-cm): 451.7 FINDINGS: ANTERIOR CIRCULATION: Right internal carotid artery: Intracranial segment is patent with no significant stenosis. No aneurysm. Right middle cerebral artery: No occlusion or significant stenosis. No aneurysm. Right anterior cerebral artery: No occlusion or significant stenosis. No aneurysm. Mild hypoplasia. Left internal carotid artery: Intracranial segment is patent with no significant stenosis. No aneurysm. Left middle cerebral artery: No occlusion or significant stenosis. No aneurysm. Left anterior cerebral artery: No occlusion or significant stenosis. No aneurysm. POSTERIOR CIRCULATION: Right vertebral artery: No occlusion or significant stenosis. No aneurysm. 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 Left vertebral artery: No occlusion or significant stenosis. No aneurysm. Basilar artery: No occlusion or significant stenosis. No aneurysm. Right posterior cerebral artery: No occlusion or significant stenosis. No aneurysm. Left posterior cerebral artery: No occlusion or significant stenosis. No aneurysm. Brain: No focal hemorrhage or midline shift identified. Mild age-related change, see same-day head CT. Cerebral ventricles: No evidence of ventriculomegaly or hydrocephalus. The ventricles seem age-appropriate. Bones/joints: Unremarkable. No acute fracture. Soft tissues: Unremarkable. PROCEDURE INFORMATION: Exam: CTA Neck With Contrast Exam date and time: 01/21/2024 8:30 PM Age: 68 years old Clinical indication: Numbness; Additional info: Numbness tingling right 1,2,3 fingers, right gums lips face TECHNIQUE: Imaging protocol: Computed tomographic angiography of the neck with contrast. Exam focused on the cervical segments of the vasculature. 3D rendering (Not supervised by radiologist): MIP and/or 3D reconstructed images were created by the technologist. Radiation optimization: All CT scans at this facility use at least one of these dose optimization techniques: automated exposure control; mA and/or kV adjustment per patient size (includes targeted exams where dose is matched to clinical indication); or iterative reconstruction. Contrast material: OMNI 350; Contrast volume: 85 ml; Contrast route: INTRAVENOUS (IV); COMPARISON: CT head wo con* [id number] 01/21/2024 7:41 PM RADIATION DOSE METRICS: Total DLP (mGy-cm): 451.7 FINDINGS: Right common carotid artery: No stenosis. No dissection or occlusion. Right internal carotid artery: No stenosis of the extracranial segment. No dissection or occlusion. Right external carotid artery: No occlusion or high-grade stenosis identififed. Left common carotid artery: No stenosis. No dissection or occlusion. Left internal carotid artery: No stenosis of the extracranial segment. No dissection or occlusion. Left external carotid artery: No occlusion or high-grade stenosis identififed. Right vertebral artery: No stenosis. No dissection or occlusion. 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 Left vertebral artery: No stenosis. No dissection or occlusion. Soft tissues: No significant soft tissue swelling or other acute finding noted. Bones/joints: No acute fracture. CT/CT angio headneck* [id number] IMPRESSION: No large vessel stenosis or occlusion. IMPRESSION: No stenosis or occlusion. REFERENCES: NASCET CRITERIA. The degree of stenosis in the cervical segment of the internal carotid artery is based on NASCET criteria. Normal is no stenosis. Mild is less than 50% stenosis. Moderate is 50-69% stenosis. Severe is 70% to 99% stenosis. Total occlusion is no detectable patent lumen.
--- NOTE | 2024-01-21 19:21 | CTR_ITS ---
PROCEDURE INFORMATION: Exam: CT Head Without Contrast Exam date and time: 01/21/2024 7:41 PM Age: 68 years old Clinical indication: Stroke-like symptoms; Right upper extremity numbness/paresthesia; Additional info: Numbness tingling R 1,2,3 finger, right face lips gums TECHNIQUE: Imaging protocol: Computed tomography of the head without contrast. Radiation optimization: All CT scans at this facility use at least one of these dose optimization techniques: automated exposure control; mA and/or kV adjustment per patient size (includes targeted exams where dose is matched to clinical indication); or iterative reconstruction. Other technique: STROKE PROTOCOL was implemented. COMPARISON: CT head wo/w con [id number] 05/15/2018 11:13 AM RADIATION DOSE METRICS: Total DLP (mGy-cm): 1026.6 FINDINGS: Brain: No focal hemorrhage or midline shift is identified. The ventricles and parenchyma show mild atrophy and chronic bicerebral white matter ischemic change. Cerebral ventricles: No ventriculomegaly or evidence of hydrocephalus. Paranasal sinuses: The partially assessed sinuses are grossly clear. Mastoid air cells: Visualized mastoid air cells are well aerated. Bones: No displaced skull fracture is noted. Soft tissues: Unremarkable. Vasculature: Diffuse vascular calcifications are present. CT/CT head wo con* [id number] IMPRESSION: 1. No acute intracranial abnormality. 2. Mild age-related changes. ASSESSMENT: ASPECTS ([place] Stroke Program Early CT Score) is 10.
--- NOTE | 2024-01-21 19:24 | ED_ITS ---
HPI - Neuro Symptoms/Deficit 2 General: Chief Complaint: Neuro Symptoms/Deficit Stated Complaint: Facial and hand numbness Time Seen by Provider: 01/21/24 19:11 History of Present Illness: Patient presents to the ER with sudden onset numbness tingling of his first second third fourth fingers on his right hand, right side of face lips gums and tongue. Patient is never had this before. Patient is on Plavix and baby aspirin. Patient does have a history of 5 cardiac stents with the last being approximately 2 years ago. Patient had a negative angiogram approximately 2 weeks ago for chest pain. Patient takes his medicine every day and has not missed any doses. Review of Systems 2 General: Reports: 10 or more systems reviewed and unremarkable except in HPI and below PFSH ED 2 PFSH: Medical History Depression Chronic back pain Urolithiasis Atherosclerotic heart disease of [place] coronary artery with other forms of angina pectoris EKG from 07/05/2020 EKG revealed bradycardia with a rate of [address]. [address]-T change Atypical chest pain Atherosclerotic heart disease of gray[place] coronary artery with unstable angina pectoris CAD (coronary artery disease) Hypertension Hyperlipidemia Arrhythmia Anxiety GERD (gastroesophageal reflux disease) Chronic prostatitis Surgical History Status post right inguinal hernia repair Hx of colonoscopy History of esophagogastroduodenoscopy (EGD) H/O laminectomy H/O shoulder surgery H/O heart artery stent total of 5 stents Family History Mother , 62 CAD (coronary artery disease) Father , at age 91 No problems noted. Social History Smoking and tobacco/nicotine status: never used tobacco/nicotine Alcohol intake: never Substance/Drug Use: never Adopted: No Caregiver/support person: No Lives independently: No Household members: spouse Marital status: Current occupational status: retired Current gender identity: Male NIH stroke score 2 NIHSS: Level Of Consciousness - 1a: 0 Level Of Consciousness Questions - 1b: Both Correct Level Of Consciousness Commands - 1c: Both Correct Best Gaze - 2: Normal Visual Talavera - 3: No Visual Loss Facial Palsy - 4: N ormal Motor Arm Right - 5: No Drift Motor Arm Left - 5: No Drift Motor Leg Right - 6: No Drift Motor Leg Left - 6: No Drift Limb Ataxia - 7: A bsent Sensory - 8: Normal Best Language - 9: No Aphasia Dysarthia - 10: Normal Extinction And Inattention - 11: 0 Score: Total Score: 0 Physical Exam 2 Const: COMMON NORMALS: no acute distress, average body habitus, patient oriented x3, no limitations, healthy appearing, alert and well nourished HENMT: COMMON NORMALS: normocephalic, atraumatic, hearing grossly normal bilaterally, external ears normal, Normal external nose present, Normal nasal mucous membranes and turbinates present, moist oral mucous membranes, oropharynx normal, dentition normal and gingiva normal HEAD & SCALP: normocephalic and atraumatic NOSE: Normal external nose present and Normal nasal mucous membranes and turbinates present EXTERNAL EAR: Yes external ears normal Eye: COMMON NORMALS: Equal, round and reactive pupils present, EOMs intact bilaterally, conjunctivae normal and no scleral icterus CONJUNCTIVA: Yes conjunctivae normal PUPIL: Yes Equal, round and reactive pupils present Neck/C-Spine: COMMON NORMALS: full ROM, no lymphadenopathy, supple, no meningeal signs, no JVD and Thyroid normal THYROID: Thyroid normal Chest: COMMONS NORMALS: normal inspection of the chest and normal palpation of entire chest wall Resp: COMMON NORMALS: normal respiratory effort, No retractions, No use of accessory muscles and clear to auscultation bilaterally AUSCULTATION: clear to auscultation bilaterally Cardio: COMMON NORMALS: no JVD, regular rate, regular rhythm, S1 normal heart sound present, S2 normal heart sound present, No gallops present (Cardio), No clicks present (Cardio), No murmurs present (Cardio) and No rub (Cardio) R ATE: regular rate RHYTHM: regular rhythm HEART SOUNDS: S1 normal heart sound present and S2 normal heart sound present GI: COMMON NORMALS: Normal to inspection, nondistended, normoactive bowel sounds present, Soft to palpation, non-tender, No hepatosplenomegaly present and no masses PALPATION: Yes Soft to palpation and Yes No hepatosplenomegaly present Neuro: COMMON NORMALS: patient oriented x3 SENSORIUM/ORIENTATION: Yes alert MENINGEAL SIGNS: Yes no meningeal signs Course 2 Vital Signs: Vital signs: Vital Signs Temperature 98.6 F 06/24/24 18:36 Pulse Rate 67 01/21/24 18:36 Respiratory Rate 16 01/21/24 18:36 Blood Pressure 153/88 01/21/24 18:36 Pulse Oximetry 98 01/21/24 18:36 Oxygen Delivery Me thod Room Air 01/21/24 18:36 MDM - Neuro Symptoms/Deficit Medical Decision Making Patient lab work included CBC CMP troponin, imaging included head CT and head and neck CTA all of which was essentially negative. Patient did state his symptoms are improving during his stay here. These results was discussed with the patient and suggest that he follow-up with his family practice doctor for further evaluation and treatment that may include neurology. Differential Diagnosis Unlikely carpal tunnel syndrome, convulsions, delirium, subarachnoid hemorrhage, peripheral neuropathy, cerebrovascular accident, multiple sclerosis or transient cerebral ischemia Medical Records I reviewed the patient's medical records. Lab Data I reviewed the patient's lab results. 01/21/24 19:33 01/21/24 19:[address] 01/21/24 19:21 IMPRESSION: 1. No acute intracranial abnormality. 2. Mild age-related changes. ASSESSMENT: ASPECTS ([place] Stroke Program Early CT Score) is 10. Head/Neck CTA 01/21/24 19:21 IMPRESSION: No large vessel stenosis or occlusion. IMPRESSION: No stenosis or occlusion. REFERENCES: NASCET CRITERIA. The degree of stenosis in the cervical segment of the internal carotid artery is based on NASCET criteria. Normal is no stenosis. Mild is less than 50% stenosis. Moderate is 50-69% stenosis. Severe is 70% to 99% stenosis. Total occlusion is no detectable patent lumen. Laboratory Results WBC 7.15 10^3/uL (3.29-11.43) 01/21/24 19:33 RBC 4.84 10^6/uL (3.85-5.65) 01/21/24 19:33 Hgb 14.40 g/dL (11.27-16.99) 01/21/24 19:33 Hct 43.5 % (37-53) 01/21/24 19:33 MCV 89.9 fl (82-101) 01/21/24 19:33 MCH 29.8 pg (27-33) 01/21/24 19: MCHC 33.1 g/dL (30-55) 01/21/24 19:33 RDW 13.8 % (12.1-15.1) 01/21/24 19: Plt Count 131 10^3/cmm (157-399) L 01/21/24 19:33 MPV 9.2 fL (7.4-10.4) 01/21/24 19:33 Neut % (Auto) 74.5 % 01/21/24 19:33 Lymph % (Auto) 15.0 % 01/21/24 19:33 Mayes % (Auto) 6.9 % 01/21/24 19:33 Eos % (Auto) 3.1 % 01/21/24:33 Baso % (Auto) 0.4 % 01/21/24: Neut # (Auto) 5.33 10^3/uL (1.8-7.7) 01/21/24: Lymph # (Auto) 1.1 10^3/uL (0.8-4.8) 01/21/24 19:33 Mayes # (Auto) 0.5 10^3/uL (0.2-0.9) 01/21/24: Eos # (Auto) 0.2 10^3/uL (0.0-0.8) 01/21/24: Baso # (Auto) 0.0 10^3/uL (0.0-0.1) 01/21/24: Nucleated RBC % (auto) 0 % 01/21/24: Nucleated RBCs # 0.0 /100WBC 01/21/24 19:33 PT 13.10 SECONDS (12.1-14.9) 01/21/24 19: INR 0.96 (0.8-1.2) 01/21/24 19:33 Sodium 142 mmol/L (136-145) 01/21/24 19:33 Potassium 4.3 mmol/L (3.5-5.1) 01/21/24:33 Chloride 107 mmol/L (98-107) 01/21/24:33 Carbon Dioxide 26 mmol/L (22-29) 01/21/24 19:33 Anion Gap 13.3 (5-19) 01/21/24 19:33 BUN 14 mg/dL (8-23) 01/21/24 19:33 Creatinine 0.9 mg/dL (0.7-1.2) 01/21/24 19: GFR Calculation 84.4 mL/min (90-130) L 01/21/24 19:33 Glucose 116 mg/dL (65-115) H 01/21/24 19: Calculated Osmolality 295 mOsm/kg (285-295) 01/21/24 19:33 Calcium 9.5 mg/dL (8.5-10.5) 01/21/24 19:33 Magnesium 2.4 mg/dL (1.7-2.3) H 01/21/24 19: Total Bilirubin 2.1 mg/dL (0.15-1.2) H 01/21/24 19: AST 20 U/L (0-40) 01/21/24 19: ALT 27 U/L (0-41) 01/21/24 19: Alkaline Phosphatase 78 U/L (40-130) 01/21/24 19: C-Reactive Protein 3.0 mg/L (0.0-4.9) 01/21/24 19: Total Protein 7.4 g/dL (6.6-8.7) 01/21/24 19: Albumin 4.7 g/dL (3.5-5.2) 01/21/24 19: Globulin 2.7 g/dL (1.3-4.6) 01/21/24 19: TSH 2.04 uIU/mL (0.27-4.20) 01/21/24 19: Urine Color Yellow (Yellow) 01/21/24 20:25 Urine Appearance Clear (CLEAR) 01/21/24 20: Urine pH 6 (5-7) 01/21/24 20: Ur Specific [place] 1.015 (1.005-1.030) 01/21/24 20: Urine Protein Neg (Negative) 01/21/24 20: Urine Glucose (UA) Norm (Normal) 01/21/24 20:25 Urine Ketones Negative (Negative) 01/21/24 20:25 Urine Blood Neg (Negative) 01/21/24 20: Urine Nitrate Negative (Negative) 01/21/24 20:25 Urine Bilirubin Neg (Negative) 01/21/24 20:25 Urine Urobilinogen Neg mg/dL (Negative) 01/21/24 20:25 Ur Leukocyte Esterase Negative (Negative) 01/21/24 20:25 All radiology interpretation(s) finalized by discharge Discharge Plan Discharge Patient Disposition: Home Clinical Impression: Numbness and tingling Condition: Stable Prescriptions: No Action nitroglycerin 0.4 mg tablet, sublingual 0.4 mg sublingual Q5M PRN (Reason: chest pain) 30 Days Qty: 30 3RF Rx Instructions: until response; do not exceed 3 doses per episode omeprazole 40 mg capsule,delayed release(DR/EC) 40 mg PO DAILY Qty: 30 11RF multivitamin [Daily Multi-Vitamin] Tablet 1 tab PO QAM isosorbide mononitrate 30 mg tablet extended release 24 hr 30 mg PO DAILY clopidogrel 75 mg tablet 75 mg PO QAM [place] Twice Daily Relief 0.1 % drops 1 drp ophthalmic (eye) BID PRN (Reason: allergies) Rx Instructions: separate doses by at least 6-8 hours metoprolol tartrate 25 mg tablet 25 mg PO BID vancomycin 125 mg Capsule 125 mg PO Q6H Qty: 40 0RF rosuvastatin 40 mg tablet 40 mg PO DAILY aspirin 81 mg tablet,delayed release (DR/EC) 81 mg PO DAILY Discharge Orders: Discharge ED (Routine); Ordered 01/21/24 Ordered By: Enoch Rm Referrals: Sony Swift MD [Primary Care Provider] - 1 week Patient Instructions: Numbness and Tingling Activity Restrictions/Additional Instructions: Your evaluation in the ER to include physical exam, lab work and imaging did not reveal any acute causes of your symptoms. Please follow-up with your family practice physician for further evaluation testing this may include Coding Level of Care Code ED [employer] for [employer] Daniel
[2024-01-21 19:42] LABS: Basophils % 0.4 %; Eosinophils # 0.2 10^3/uL (0.0-0.8); Eosinophils % 3.1 %; Hematocrit 43.5 % (37-53); Lymphocytes # 1.1 10^3/uL (0.8-4.8); Mean Corpuscular HGB Conc 33.1 g/dL (30-55); Mean Corpuscular Hemoglobin 29.8 pg (27-33); Mean Corpuscular Volume 89.9 fl (82-101); Mean Platelet Volume 9.2 fL (7.4-10.4); Monocytes # 0.5 10^3/uL (0.2-0.9); Monocytes % 6.9 %; Neutrophils # 5.33 10^3/uL (1.8-7.7); Neutrophils % 74.5 %; Nucleated Red Blood Cells % 0 %; Platelet Count 131 10^3/cmm (157-399); Red Blood Count 4.84 10^6/uL (3.85-5.65); Red Cell Distribution Width 13.8 % (12.1-15.1); White Blood Count 7.15 10^3/uL (3.29-11.43)
--- NOTE | 2024-01-21 19:51 | ECG_ITS ---
[facility] Test Date: 2024-01-21 Pat Name: Tom Peguero Department: Room: Gender: Male Wrister: : 1955 Requested By: Enoch Rm Order Number: [id number] Kiley MD: Spencer Blakely M.D. Measurements Intervals Stuart Rate: 63 P: 40 KS: 157 QRS: 28 QRSD: 142 T: 15 QT: 419 QTc: 432 Interpretive Statements SINUS RHYTHM WITH SINUS ARRHYTHMIA RIGHT BUNDLE BRANCH BLOCK [120+ ms QRS DURATION, UPRIGHT V1, 40+ ms S IN I/aVL/V4/V5/V6] Compared to ECG 01/07/2024 12:51:59 Sinus tachycardia no longer present Indeterminate axis no longer present Electronically Signed On 01-22-2024 23:42:22 CDT by Spencer Blakely M.D. [email or web address]
[2024-01-21 20:00] LABS: INR 0.96 (0.8-1.2)
[2024-01-21 20:08] LABS: Alanine Aminotransferase 27 U/L (0-41); Albumin Level 4.7 g/dL (3.5-5.2); Alkaline Phosphatase 78 U/L (40-130); Anion Gap 13.3 (5-19); Aspartate Amino Transferase 20 U/L (0-40); Blood Urea Nitrogen 14 mg/dL (8-23); Calcium 9.5 mg/dL (8.5-10.5); Carbon Dioxide 26 mmol/L (22-29); Chloride 107 mmol/L (98-107); Creatinine Clr Calc Pharmacy 80.0182; Globulin 2.7 g/dL (1.3-4.6); Glomerular Filtration Rate 84.4 mL/min (90-130); Glucose 116 mg/dL (65-115); Magnesium 2.4 mg/dL (1.7-2.3); Osmolality Calculated 295 mOsm/kg (285-295); Potassium 4.3 mmol/L (3.5-5.1); Sodium 142 mmol/L (136-145); Thyroid Stimulating Hormone 2.04 uIU/mL (0.27-4.20); Total Bilirubin 2.1 mg/dL (0.15-1.2); Total Protein 7.4 g/dL (6.6-8.7)
[2024-01-21] MEDS: iohexol 350 mg/mL 500 mL Btl (per mL) IV (20:31)
[2024-01-21 20:40] LABS: Add Urine Microscopic? NO; Charge for UA Resulting for Rev
[2024-01-21 20:41] LABS: Bilirubin Urine Neg (Negative); Blood Urine Neg (Negative); Glucose Urine UA Norm (Normal); Ketones Urine Negative (Negative); Leukocyte Esterase Urine Negative (Negative); Nitrate Urine Negative (Negative); Protein Urine Neg (Negative); Specific Gravity, Urine 1.015 (1.005-1.030); Urine Appearance Clear (CLEAR); Urine Color Yellow (Yellow); Urobilinogen Urine Neg (Negative); pH Urine 6 (5-7)
== END 2024-01-21 22:25 | disposition home or self-care (01) ==
PROVIDERS: Emergency Provider Emergency Medicine; PCP Family Medicine
DX: R20.0 Anesthesia of skin (principal); Z79.02 Long term (current) use of antithrombotics/antiplatelets; Z79.82 Long term (current) use of aspirin; I25.10 Atherosclerotic heart disease of native coronary artery without angina pectoris; I10 Essential (primary) hypertension; E78.5 Hyperlipidemia, unspecified
CPT/HCPCS: 36415; 70450; 70496; 70498; 80053; 81003; 83735; 84443; 85025; 85610; 86140; 93005; 99285; Q9967

== ENCOUNTER 2024-01-23 13:56 | Outpatient (CLI) | payer MEDICARE, OTHER, SELFPAY ==
--- NOTE | 2024-01-23 14:00 | MR_ITS ---
WS: [id number] MRI BRAIN WITH AND WITHOUT CONTRAST HISTORY: rule out CVA, right face, arm and leg numbness and weakness COMPARISON: CT head 01/21/2024 TECHNIQUE: Multiplanar imaging performed through the brain with MultiHance 16 ml's IV. There is an acute lacunar infarct in the LEFT thalamus. The remaining diffusion imaging is normal. Ot herwise mild small vessel ischemic type changes in the white matter. No additional infarct. Mild atro phy. No hemorrhage. Ventricles and extra-axial spaces are normal. Clivus and pituitary gland are normal. Visualized posterior fossa and brainstem are also normal. Postcontrast images are negative for masses or vascular malformations. Small caliber distal RIGHT briseyda tebral artery. Dural venous sinuses are normal. Paranasal sinuses: Small bilateral mucous retention cysts in the maxillary sinus. No air-fluid levels . Mastoid air cells: Normal. Calvarium and scalp: Normal. MR/MR head wo/w con [id number] IMPRESSION: 1. LEFT thalamic acute, nonhemorrhagic lacunar infarct. 2. Additional mild small vessel chronic ischemic disease. 3. Minimal atrophy. 4. Notified Sony Swift MD at 01/23/2024 3:37 PM.
[2024-01-23] MEDS: gadobenate dimeglumine 20 mL vial IV (14:50)
== END 2024-01-23 13:57 | disposition home or self-care (01) ==
LOC: RAD 13:56
PROVIDERS: PCP Family Medicine; Visit Provider Family Medicine
DX: I63.81 Other cerebral infarction due to occlusion or stenosis of small artery (principal)
CPT/HCPCS: 70553; A9577

== ENCOUNTER 2024-01-29 08:11 | Outpatient (RCR) | payer MEDICARE, OTHER, SELFPAY | END 2024-02-27 23:59 | disposition home or self-care (01) | LOC: SPT 08:11 | PROVIDERS: PCP Family Medicine; Visit Provider Family Medicine | DX: I63.9 Cerebral infarction, unspecified (principal) | CPT/HCPCS: 97110; 97140; 97161 ==

== ENCOUNTER → 2024-02-25 13:09 | Outpatient (BNVA) | payer MEDICARE, OTHER, SELFPAY | PROVIDERS: PCP Family Medicine; Visit Provider Nurse Practitioner Family | DX: I25.10 Atherosclerotic heart disease of native coronary artery without angina pectoris (principal); I10 Essential (primary) hypertension | CPT/HCPCS: 99213 ==

== ENCOUNTER → 2024-03-12 12:46 | Outpatient (BNVA) | payer MEDICARE, OTHER, SELFPAY | PROVIDERS: PCP Family Medicine; Visit Provider Family Medicine | DX: N41.9 Inflammatory disease of prostate, unspecified (principal) | CPT/HCPCS: 87086 ==

== ENCOUNTER → 2024-05-15 12:44 | Outpatient (BNVA) | payer MEDICARE, OTHER, SELFPAY | PROVIDERS: PCP Family Medicine; Visit Provider Internal Medicine Cardiovascular Disease | DX: I25.10 Atherosclerotic heart disease of native coronary artery without angina pectoris (principal); I10 Essential (primary) hypertension; E78.2 Mixed hyperlipidemia; Z86.73 Personal history of transient ischemic attack (TIA), and cerebral infarction without residual deficits | CPT/HCPCS: 99213 ==

== ENCOUNTER 2024-08-12 12:47 | Outpatient (CLI) | payer MEDICARE, OTHER, SELFPAY ==
--- NOTE | 2024-08-12 13:00 | MR_ITS ---
WS: [id number] MRI LUMBAR SPINE NONCONTRAST HISTORY: worsening back pain COMPARISON: 06/18/2019 TECHNIQUE: Sagittal and axial multisequence imaging is submitted. Normal lumbar alignment with no compression fractures or marrow edema. Disc spaces and vertebral body heights are well-preserved. Conus terminates normally at L1. L1-L2: Normal. L2-L3: Normal. L3-L4: Mild annular disc bulging with a small central disc fissure. Mild facet arthritis. Shallow RIG HT foraminal disc protrusion. Mild bilateral foraminal stenosis, RIGHT greater than LEFT. L4-L5: Mild annular disc bulge bulge with effacement of ventral CSF. Thecal sac is deformed secondary to prior LEFT hemilaminectomy. Facet joint arthritis, RIGHT greater than LEFT. New since the prior s tudies of moderate size disc protrusion in the RIGHT foramen which does appear to be most significant ly contacting the RIGHT exiting L4 nerve root with mild encroachment upon the RIGHT L5 traversing ner ve root. Resulting in moderate to severe RIGHT foraminal stenosis. Mild LEFT foraminal stenosis. L5-S1: Diffuse annular disc bulging with osteophytic ridging. Bilateral facet joint arthritis. Modera te LEFT and mild RIGHT foraminal stenosis. Mild progression of LEFT foraminal stenosis compared to th e prior study. Large bilateral renal cysts. MR/MR lumbar spine wo con* [id number] IMPRESSION: 1. New moderate to severe RIGHT foraminal stenosis at L4-5 due to new foramina l disc protrusion with most significant contact on the exiting L4 nerve root. L arturo contact on the traversing L5 nerve root. Mild LEFT foraminal stenosis. 2. L5-S1: Moderate LEFT and mild RIGHT foraminal stenosis. Mild progression of LEFT foraminal stenosis. 3. Prior LEFT hemilaminectomy defect at L4-5. 4. L4-5: Bilateral foraminal stenosis, RIGHT greater than LEFT. Unchanged shal low RIGHT foraminal disc protrusion. 5. Incompletely visualized bilateral renal cysts.
== END 2024-08-12 12:48 | disposition home or self-care (01) ==
LOC: RAD 12:48
PROVIDERS: PCP Family Medicine; Visit Provider Family Medicine
DX: M48.061 Spinal stenosis, lumbar region without neurogenic claudication (principal); G89.29 Other chronic pain; M51.26 Other intervertebral disc displacement, lumbar region; Z98.890 Other specified postprocedural states; N28.1 Cyst of kidney, acquired; M51.369 Other intervertebral disc degeneration, lumbar region without mention of lumbar back pain or lower extremity pain; M47.816 Spondylosis without myelopathy or radiculopathy, lumbar region; M25.78 Osteophyte, vertebrae
CPT/HCPCS: 72148

== ENCOUNTER 2024-09-17 14:53 | Emergency (ER) | payer MEDICARE, OTHER, SELFPAY ==
[2024-09-17 14:55] VITALS: BP 165/87; PULSE 84; RESP 14; TEMP 36.4; O2SAT 98; BMI 24.3
--- NOTE | 2024-09-17 15:03 | W.ED.BACK ---
HPI - Back Pain/Injury General: Chief Complaint: Back Pain/Injury Stated Complaint: rt hip and leg pain Time Seen by Provider: 09/17/24 15:02 Source: patient Mode of arrival: ambulatory Limitations: no limitations History of Present Illness: Patient is a 69-year-old male who presents the emergency department complaining of right lower back pain since last . This patient reports a history of laminectomy and partial discectomy in the past, states that he was recently referred to Ortho/spine in [place] but they wanted him to try physical therapy before further intervention. States that on he followed up with physical therapy but this made it much worse and since then has had 10/10 pain to right lower back radiating down the right lower extremity all the way to the foot. States that he is still able to walk, though walking significantly increases the pain. States it is sharp and shooting, it has been constant and though it is somewhat relieved by immobilization he can still feel it. He is not reporting any bowel or bladder incontinence. No saddle anesthesia. Further, there is no calf tenderness or swelling, history of blood clots. He has taken ibuprofen for the pain, this has not really helped. Does not report any fevers, trauma, unexplained weight loss, neurological symptoms, IVDU, steroid use, or history of cancer. MD elicited complaint: back pain Pertinent past history: prior back pain and back surgery Onset (ago): day(s) Timing: constant Severity: severe Pain scale (0-10): 10 Similar Symptoms Previously: Yes Quality: sharp and other (shooting, constant) Location: right lower back Radiation: right leg below the knee Exacerbating factors: movement Relieving factors: immobilization Context: other (chronic, though worsened by recent PT) Associated symptoms: Deny abdominal pain, difficulty walking, fecal incontinence, fever(s) or syncope Treatments prior to arrival: NSAIDS Work related injury: No Related Data Home Medications ?Medication ?Instructions ?Recorded ?Confirmed multivitamin (Daily Multi-Vitamin 1 tab PO QAM 06/02/20 09/17/24 tablet) aspirin 81 mg tablet,delayed 81 mg PO DAILY 10/19/21 09/17/24 release rosuvastatin 40 mg tablet 40 mg PO DAILY 10/19/21 09/17/24 clopidogrel 75 mg tablet 75 mg PO QAM 01/07/24 09/17/24 olopatadine 0.1 % eye drops 1 drp ophthalmic (eye) BID PRN 01/07/24 09/17/24 (Pataday Twice Daily Relief) allergies Previous Rx's ?Medication ?Instructions ?Recorded losartan 25 mg tablet 25 mg PO DAILY #30 tabs 01/30/24 omeprazole 40 mg capsule,delayed See Rx Instructions .Route 03/21/24 release .COMPLEX #90 caps sertraline 50 mg tablet 25 mg (1/2 x 50 mg) PO DAILY #30 05/02/24 tabs metoprolol tartrate 25 mg tablet See Rx Instructions .Route 08/04/24 .COMPLEX #180 tabs isosorbide mononitrate 30 mg See Rx Instructions .Route 08/26/24 tablet,extended release 24 hr .COMPLEX #90 tabs prednisone 20 mg tablet 60 mg (3 x 20 mg) PO ONCE 5 days 09/17/24 #15 tabs Allergies Allergy/AdvReac Type Severity Reaction Status Date / Time atorvastatin Allergy NA Verified 09/17/24 15:00 morphine Allergy ADR-Nausea Verified 09/17/24 15:00 simvastatin Allergy NA Verified 09/17/24 15:00 Review of Systems General: Reports: 10 or more systems reviewed and unremarkable except in HPI and below Const: Reports: other (denies trauma); Denies: fever(s), change in weight or night sweats Card: Denies: chest pain, lightheadedness or syncope Resp: Denies: dyspnea GI: Denies: abdominal pain or fecal incontinence : Denies: urinary incontinence Musc: Reports: back pain, extremity pain (RLE) and limited range of motion; Denies: neck pain Skin/Breast: Denies: rash or skin pain Neuro: Denies: headache(s), numbness in extremities, weakness in extremities, sensory changes, lack of coordination, difficulty walking, frequent falls or involuntary movements PFS ED PFSH: Medical History CVA (cerebral vascular accident) right sided. 12/2023. mostly resolved Depression Chronic back pain Urolithiasis Atherosclerotic heart disease of [place] coronary artery with other forms of angina pectoris EKG from 07/05/2020 EKG revealed bradycardia with a rate of [address]-T change Atypical chest pain Atherosclerotic heart disease of [place] coronary artery with unstable angina pectoris CAD (coronary artery disease) Hypertension Hyperlipidemia Arrhythmia Anxiety GERD (gastroesophageal reflux disease) Chronic prostatitis Surgical History Status post right inguinal hernia repair Hx of colonoscopy History of esophagogastroduodenoscopy (EGD) H/O laminectomy H/O shoulder surgery H/O heart artery stent total of 5 stents Family History Mother , 62 CAD (coronary artery disease) Father , at age 91 No problems noted. Social History Smoking and tobacco/nicotine status: unknown if used tobacco/nicotine Alcohol intake: never Substance/Drug Use: never Adopted: No Caregiver/support person: No Lives independently: No Household members: spouse Marital status: Current occupational status: retired Current gender identity: Male Physical Exam Const: COMMON NORMALS: no acute distress, patient oriented x3, no limitations, healthy appearing and alert OTHER: appears uncomfortable Resp: COMMON NORMALS: normal respiratory effort, No retractions, No use of accessory muscles and clear to auscultation bilaterally AUSCULTATION: clear to auscultation bilaterally Cardio: COMMON NORMALS: regular rate, regular rhythm, S1 normal heart sound present and S2 normal heart sound present RATE: regular rate RHYTHM: regular rhythm HEART SOUNDS: S1 normal heart sound present and S2 normal heart sound present Back/Pelvis: OTHER: Straight leg raise testing positive on the right. Normal visual examination. No spinous process tenderness. There is reproducible tenderness to palpation to the right paralumbar muscles. No signs of trauma or bruising. Extremity: COMMON NORMALS: normal to inspection, full ROM and no calf tenderness NARRATIVE EXTREMITY EXAM: No calf edema or tenderness. 2+ DP/PT pulses. Neuro: COMMON NORMALS: patient oriented x3, moves all extremities, no focal motor deficits, no sensory deficits noted, deep tendon reflexes 2+ bilaterally and gait normal SENSORIUM/ORIENTATION: Yes alert OTHER: L3, L4, L5, and S1 nerve sensations intact. Normal knee jerk and ankle jerk reflexes. Skin: COMMON NORMALS: no rashes or lesions noted GENERAL SKIN EXAM: no rashes or lesions noted Course Vital Signs: Vital signs: Vital Signs Temperature 97.5 F L 09/17/24 14:55 Pulse Rate 82 09/17/24 15:04 Respiratory Rate 14 09/17/24 14:55 Blood Pressure 165/94 09/17/24 15:04 Pulse Oximetry 98 09/17/24 15:04 Oxygen Delivery Me thod Room Air 09/17/24 15:04 MDM - Back Pain/Injury Medical Decision Making Patient presenting with right lower back pain radiating down his right leg, history of degenerative disc disease and has had previous laminectomy with discectomy. Recently started PT as started by Ortho/spine surgeon in [place], states that this significantly made the pain worse. No red flag symptoms with the history nor red flag symptoms on exam. Initially tried treating just with medications as there was no trauma to report as well, he states pain remained a 10/10 despite Norflex, Toradol, and Decadron. Then obtained a CT that did not demonstrate any significant change from MRI obtained greater than a month ago. For this we will have patient treated with steroids at home continue taking ibuprofen and was also sent home with a [place] for breakthrough pain. Will have him return with any red flag symptoms and ultimately is encouraged to continue follow-up with orthopedist/spine. He agrees with this plan and verbalized understanding to return precautions. Labs Radiology Impressions Lumbar Spine CT 09/17/24 16:10 IMPRESSION: 1. Mild central canal stenosis with moderate to severe right-sided and mild left-sided neural foraminal compromise at L4-L5 secondary to posterior osteophytic spurring projecting into the right neural foramen, right foraminal disc protrusion, and bilateral facet joint arthropathy. There is impingement/compression of the exiting right L4 nerve root and possible mild impingement of the traversing right L5 nerve root. A left hemilaminectomy defect is noted at this level. Similar findings were seen on the MRI from August 12, 2024. 2. Mild degenerative changes at L3-L4 and L5-S1. 3. Large partially visualized renal cysts. COMMENTS: Consistent with the [employer]'s Incidental Findings Committee white paper (J Am Kirk Radiol 2018): Any incidental renal lesion less than 1 cm or classified as too small to characterize, or any incidental cystic renal lesion characterized as simple-appearing, is likely benign. No follow-up imaging is recommended for these lesions per consensus recommendations based on imaging criteria. All radiology interpretation(s) finalized by discharge Discharge Plan Discharge Patient Disposition: Home Clinical Impression: DDD (degenerative disc disease) Qualifiers: Spinal region: lumbar Disc-related pain type: discogenic back pain and lower extremity pain Qualified Code(s): M51.362 - Other intervertebral disc degeneration, lumbar region with discogenic back pain and lower extremity pain Condition: Stable Prescriptions: New prednisone 20 mg tablet 60 mg PO ONCE 5 Days Qty: 15 0RF No Action losartan 25 mg tablet 25 mg PO DAILY Qty: 30 11RF omeprazole 40 mg capsule,delayed release(DR/EC) See Rx Instructions .ROUTE .COMPLEX Qty: 90 3RF Dose Instruction: TAKE 1 CAPSULE BY MOUTH EVERY DAY Rx Instructions: TAKE 1 CAPSULE BY MOUTH EVERY DAY sertraline 50 mg tablet 25 mg PO DAILY Qty: 30 11RF metoprolol tartrate 25 mg tablet See Rx Instructions .ROUTE .COMPLEX Qty: 180 3RF Dose Instruction: TAKE 1 TABLET BY MOUTH TWICE A DAY Rx Instructions: TAKE 1 TABLET BY MOUTH TWICE A DAY isosorbide mononitrate 30 mg tablet extended release 24 hr See Rx Instructions .ROUTE .COMPLEX Qty: 90 2RF Dose Instruction: TAKE 1 TABLET BY MOUTH EVERY DAY FOR BLOOD PRESSURE Rx Instructions: TAKE 1 TABLET BY MOUTH EVERY DAY FOR BLOOD PRESSURE multivitamin [Daily Multi-Vitamin] Tablet 1 tab PO QAM clopidogrel 75 mg tablet 75 mg PO QAM olopatadine [Pataday Twice Daily Relief] 0.1 % drops 1 drp ophthalmic (eye) BID PRN (Reason: allergies) Rx Instructions: separate doses by at least 6-8 hours rosuvastatin 40 mg tablet 40 mg PO DAILY aspirin 81 mg tablet,delayed release (DR/EC) 81 mg PO DAILY Discharge Orders: Discharge ED (Routine); Ordered 09/17/24 Ordered By: Nick Collazo Referrals: Sony Swift MD [Primary Care Provider] - Patient Instructions: Degenerative Disc Disease (ED) Activity Restrictions/Additional Instructions: Take prednisone as prescribed. Continue taking ibuprofen at home. Please follow-up with your Ortho/spine doctor as we discussed. Please return with any loss of bowel or bladder function, numbness in the groin region, or any other major concerns you have. Gentle range of motion exercises as tolerated. Ice/heat. Print Language: Japanese Coding Level of Care Code ED Telephone Sales Representative for Levi Daniel
[2024-09-17 15:04] VITALS: BP 165/94; PULSE 82; O2SAT 98
[2024-09-17] MEDS: dexamethasone 10 mg/mL INJ IM (15:27)
[2024-09-17] MEDS: orphenadrine 30 mg/mL Inj 2 mL 60 MG IM (15:29)
[2024-09-17] MEDS: ketorolac 60 mg/2 mL INJ IM (15:29)
--- NOTE | 2024-09-17 16:10 | CTR_ITS ---
PROCEDURE INFORMATION: Exam: CT Lumbar Spine Without Contrast Exam date and time: 09/17/2024 4:17 PM Age: 69 years old Clinical indication: Pain; Lumbago with sciatica; Right; Prior surgery; Surgery date: 6+ months; Surgery type: Laminectomy; Additional info: Severe 10/10 pain to right lower back despite medicine TECHNIQUE: Imaging protocol: Computed tomography of the lumbar spine without contrast. Radiation optimization: All CT scans at this facility use at least one of these dose optimization techniques: automated exposure control; mA and/or kV adjustment per patient size (includes targeted exams where dose is matched to clinical indication); or iterative reconstruction. COMPARISON: MR lumbar spine wo con* [id number] 08/12/2024 1:27 PM RADIATION DOSE METRICS: Total DLP (mGy-cm): 637.45 FINDINGS: ALIGNMENT: There is mild levoscoliosis, apex at L4-L5. No significant subluxation. OSSEOUS STRUCTURES: Vertebral bodies are normal in height. No fracture is detected. There is a left hemilaminectomy defect at L4-L5. Look at it so 3 4 There is mild endplate sclerosis with small anterior and posterior spurs at L4-L5. No suspicious osseous lesion seen. OTHER: There is [id number] atherosclerotic calcification involving the abdominal aorta. No aneurysm seen. There is a large partially visualized simple right renal cyst measuring approximately 8 cm. A partially visualized simple appearing cyst is also seen in the lateral left kidney. T12-L1: Unremarkable. L1-2: Unremarkable. L2-3: Unremarkable. L3-4: Small posterior disc bulge. Mild bilateral facet joint arthropathy. No significant central canal or neural foraminal stenosis. L4-5: Status post left hemilaminectomy. [id number] decrease in disc height with endplate sclerosis and small posterior spurs, particularly on the right projecting into the right neural foramen. Small posterior disc bulge with superimposed right foraminal disc protrusion, better seen on the prior MRI. Bilateral facet joint arthropathy. Findings appear to result in mild central canal stenosis and moderate to severe right-sided neural foraminal compromise. There appears to be mild left-sided neural foraminal compromise. L5-S1: Small posterior spur and small broad-based disc bulge. Mild bilateral facet joint arthropathy. No significant central canal or neural foraminal stenosis. CT/CT lumbar spine wo con* [id number] IMPRESSION: 1. Mild central canal stenosis with moderate to severe right-sided and mild left-sided neural foraminal compromise at L4-L5 secondary to posterior osteophytic spurring projecting into the right neural foramen, right foraminal disc protrusion, and bilateral facet joint arthropathy. There is impingement/compression of the exiting right L4 nerve root and possible mild impingement of the traversing right L5 nerve root. A left hemilaminectomy defect is noted at this level. Similar findings were seen on the MRI from August 12, 2024. 2. Mild degenerative changes at L3-L4 and L5-S1. 3. Large partially visualized renal cysts. COMMENTS: Consistent with the [employer]'s Incidental Findings Committee white paper (J Am Kirk Radiol 2018): Any incidental renal lesion less than 1 cm or classified as too small to characterize, or any incidental cystic renal lesion characterized as simple-appearing, is likely benign. No follow-up imaging is recommended for these lesions per consensus recommendations based on imaging criteria.
--- NOTE | 2024-09-17 16:53 | PC.NURSE ---
spoke to Zay, will give georgette at later time.
[2024-09-17] MEDS: HYDROcodone-acetaminophen 7.5-325 mg Tablet 1 TAB PO (17:28)
[2024-09-17 17:36] VITALS: BP 122/72; PULSE 66; O2SAT 93
== END 2024-09-17 17:37 | disposition home or self-care (01) ==
PROVIDERS: Emergency Provider Physician Assistant; PCP Family Medicine
DX: M51.362 Other intervertebral disc degeneration, lumbar region with discogenic back pain and lower extremity pain (principal); Z79.02 Long term (current) use of antithrombotics/antiplatelets; Z79.82 Long term (current) use of aspirin; Z86.73 Personal history of transient ischemic attack (TIA), and cerebral infarction without residual deficits; E78.5 Hyperlipidemia, unspecified; I10 Essential (primary) hypertension; I25.10 Atherosclerotic heart disease of native coronary artery without angina pectoris
CPT/HCPCS: 72131; 96372; 99284; J1100; J1885; J2360

== ENCOUNTER 2024-10-02 18:14 | Emergency (ER) | payer MEDICARE, OTHER, SELFPAY ==
[2024-10-02 18:24] VITALS: BP 135/81; PULSE 112; RESP 16; TEMP 36.6; O2SAT 96; BMI 24.3
[2024-10-02 18:37] LABS: Glucose Point of Care 110 mg/dL (70-110)
--- NOTE | 2024-10-02 19:40 | XRR_ITS ---
PROCEDURE INFORMATION: Exam: XR Abdomen Exam date and time: 10/02/2024 8:07 PM Age: 69 years old Clinical indication: Abdominal pain; Additional info: Abdominal pain, constipation TECHNIQUE: Imaging protocol: Radiologic exam of the abdomen. Views: Frontal supine view of the abdomen. 1 View. COMPARISON: CR XR KUB [id number] 10/30/2022 3:46 PM FINDINGS: Gastrointestinal tract: Moderate gaseous distension small bowel with air seen in the ascending colon. There is prominent stool within the descending colon and rectum, suggesting constipation. Bones/joints: Unremarkable. XR/XR abdomen 1V* [id number] IMPRESSION: Probable constipation. Enteritis could also be considered given the appearance of numerous mildly dilated small bowel loops.
--- NOTE | 2024-10-02 19:41 | W.ED.ABDPA2 ---
HPI - Abdominal Pain General: Chief Complaint: Abdominal Pain Stated Complaint: severe abd pain n/ Time Seen by Provider: 10/02/24 19:30 History of Present Illness: Patient presents to the ER with complaints of abdominal pain acid reflux and nausea. Patient stated this all started about 6 AM this morning has been constant throughout the day. Patient was on some oxycodone for his back for several days. He felt he was getting backed up so he stopped it 3 to 4 days ago. But his back flared up again so had to started yesterday. Patient did have a bowel movement today. Patient says he feels like nothing can go down and then the acid reflux is Rolls up through his throat and is a burning sensation. Patient is on aspirin, Plavix and Prilosec along with other medicines. Related Data Home Medications ?Medication ?Instructions ?Recorded ?Confirmed multivitamin (Daily Multi-Vitamin 1 tab PO QAM 06/02/20 09/17/24 tablet) aspirin 81 mg tablet,delayed 81 mg PO DAILY 10/19/21 09/17/24 release rosuvastatin 40 mg tablet 40 mg PO DAILY 10/19/21 09/17/24 clopidogrel 75 mg tablet 75 mg PO QAM 01/07/24 09/17/24 olopatadine 0.1 % eye drops 1 drp ophthalmic (eye) BID PRN 01/07/24 09/17/24 (Pataday Twice Daily Relief) allergies Previous Rx's ?Medication ?Instructions ?Recorded losartan 25 mg tablet 25 mg PO DAILY #30 tabs 01/30/24 omeprazole 40 mg capsule,delayed See Rx Instructions .Route 03/21/24 release .COMPLEX #90 caps sertraline 50 mg tablet 25 mg (1/2 x 50 mg) PO DAILY #30 05/02/24 tabs metoprolol tartrate 25 mg tablet See Rx Instructions .Route 08/04/24 .COMPLEX #180 tabs isosorbide mononitrate 30 mg See Rx Instructions .Route 08/26/24 tablet,extended release 24 hr .COMPLEX #90 tabs Allergies Allergy/AdvReac Type Severity Reaction Status Date / Time atorvastatin Allergy NA Verified 10/02/24 18:35 morphine Allergy ADR-Nausea Verified 10/02/24 18:35 simvastatin Allergy NA Verified 10/02/24 18:35 Review of Systems General: Reports: 10 or more systems reviewed and unremarkable except in HPI and below PFSH ED PFSH: Medical History CVA (cerebral vascular accident) right sided. 12/2023. mostly resolved Depression Chronic back pain Urolithiasis Atherosclerotic heart disease of [place] coronary artery with other forms of angina pectoris EKG from 07/05/2020 EKG revealed bradycardia with a rate of [address]. [address]-T change Atypical chest pain Atherosclerotic heart disease of [place] coronary artery with unstable angina pectoris CAD (coronary artery disease) Hypertension Hyperlipidemia Arrhythmia Anxiety GERD (gastroesophageal reflux disease) Chronic prostatitis Surgical History Status post right inguinal hernia repair Hx of colonoscopy History of esophagogastroduodenoscopy (EGD) H/O laminectomy H/O shoulder surgery H/O heart artery stent total of 5 stents Family History Mother , 62 CAD (coronary artery disease) Father , at age 91 No problems noted. Social History Smoking and tobacco/nicotine status: unknown if used tobacco/nicotine Alcohol intake: never Substance/Drug Use: never Adopted: No Caregiver/support person: No Lives independently: No Household members: spouse Marital status: Current occupational status: retired Current gender identity: Male Physical Exam Const: COMMON NORMALS: no acute distress, average body habitus, patient oriented x3, no limitations, healthy appearing, alert and well nourished HENMT: COMMON NORMALS: normocephalic, atraumatic, hearing grossly normal bilaterally, external ears normal, Normal external nose present, moist oral mucous membranes and oropharynx normal HEAD & SCALP: normocephalic and atraumatic NOSE: Normal external nose present EXTERNAL EAR: Yes external ears normal Neck/C-Spine: COMMON NORMALS: no JVD Chest: COMMONS NORMALS: normal inspection of the chest and normal palpation of entire chest wall Resp: COMMON NORMALS: normal respiratory effort, No retractions, No use of accessory muscles and clear to auscultation bilaterally AUSCULTATION: clear to auscultation bilaterally Cardio: COMMON NORMALS: no JVD, regular rate, regular rhythm, S1 normal heart sound present, S2 normal heart sound present, No gallops present (Cardio), No clicks present (Cardio), No murmurs present (Cardio) and No rub (Cardio) RATE: regular rate RHYTHM: regular rhythm HEART SOUNDS: S1 normal heart sound present and S2 normal heart sound present GI: COMMON NORMALS: Normal to inspection, nondistended, normoactive bowel sounds present, Soft to palpation, No hepatosplenomegaly present and no masses; negative for non-tender (Mildly diffusely tender worst over the epigastric area) PALPATION: Yes Soft to palpation and Yes No hepatosplenomegaly present Neuro: COMMON NORMALS: patient oriented x3 SENSORIUM/ORIENTATION: Yes alert Course Vital Signs: Vital signs: Vital Signs Temperature 97.8 F 10/02/24 18:24 Pulse Rate 70 10/02/24 22:03 Respiratory Rate 16 10/02/24 18:24 Blood Pressure 102/71 10/02/24 22:03 Pulse Oximetry 92 10/02/24 22:03 Oxygen Delivery Me thod Room Air 10/02/24 22:03 MDM - Abdominal Pain Medical Decision Making Lab work was reviewed as well as abdomen x-ray which showed constipation and possible enteritis lab work was otherwise unremarkable, bilirubin was elevated but it has been elevated chronically in the past. These results were discussed with the patient. Patient be discharged home. Medical Records I reviewed the patient's medical records. Lab Data I reviewed the patient's lab results. 10/02/24 19:25 10/02/24 19:25 Labs/Radiology: Radiology Impressions Abdomen X-Ray 10/02/24 19:40 IMPRESSION: Probable constipation. Enteritis could also be considered given the appearance of numerous mildly dilated small bowel loops. Laboratory Results WBC 13.34 10^3/uL (3.29-11.43) H 10/02/24 19: RBC 6.20 10^6/uL (3.85-5.65) H 10/02/24 19: Hgb 18.20 g/dL (11.27-16.99) H 10/02/24 19: Hct 55.2 % (37-53) H 10/02/24 19: MCV 89.0 fl (82-101) 10/02/24 19: MCH 29.4 pg (27-33) 10/02/24 19: MCHC 33.0 g/dL (30-55) 10/02/24: RDW 13.3 % (12.1-15.1) 10/02/24: Plt Count 143 10^3/cmm (157-399) L 10/02/24 19: MPV 8.9 fL (7.4-10.4) 10/02/24 19: Neut % (Auto) 84.7 % 10/02/24:25 Lymph % (Auto) 8.0 % 10/02/24 19:25 [place] % (Auto) 6.3 % 10/02/24:25 Eos % (Auto) 0.3 % 10/02/24: Baso % (Auto) 0.3 % 10/02/24: Neut # (Auto) 11.30 10^3/uL (1.8-7.7) H 10/02/24: Lymph # (Auto) 1.1 10^3/uL (0.8-4.8) 10/02/24:25 [place] # (Auto) 0.8 10^3/uL (0.2-0.9) 10/02/24: Eos # (Auto) 0.0 10^3/uL (0.0-0.8) 10/02/24: Baso # (Auto) 0.0 10^3/uL (0.0-0.1) 10/02/24: Nucleated RBC % (auto) 0 % 10/02/24: Nucleated RBCs # 0.0 /100WBC 10/02/24 19:25 Sodium 140 mmol/L (136-145) 10/02/24 19:25 Potassium 4.4 mmol/L (3.5-5.1) 10/02/24:25 Chloride 101 mmol/L (98-107) 10/02/24:25 Carbon Dioxide 27 mmol/L (22-29) 10/02/24 19:25 Anion Gap 16.4 (5-19) 10/02/24 19:25 BUN 19 mg/dL (8-23) 10/02/24:25 Creatinine 1.0 mg/dL (0.7-1.2) 10/02/24 19:25 GFR Calculation 74.5 mL/min (90-130) L 10/02/24 19:25 Glucose 121 mg/dL (65-115) H 10/02/24 19:25 POC Glucose 110 mg/dL (70-110) 10/02/24 18:34 Calculated Osmolality 294 mOsm/kg (285-295) 10/02/24 19:25 Calcium 10.1 mg/dL (8.5-10.5) 10/02/24 19:25 Total Bilirubin 2.5 mg/dL (0.15-1.2) H 10/02/24 19:25 AST 21 U/L (0-40) 10/02/24 19:25 ALT 33 U/L (0-41) 10/02/24 19:25 Alkaline Phosphatase 76 U/L (40-130) 10/02/24 19:25 Total Protein 8.1 g/dL (6.6-8.7) 10/02/24 19:25 Albumin 5.1 g/dL (3.5-5.2) 10/02/24 19:25 Globulin 3.0 g/dL (1.3-4.6) 10/02/24 19:25 Lipase 41 U/L (13-60) 10/02/24 19:25 Urine Color Dark yellow (Yellow) A 10/02/24 19:59 Urine Appearance Clear (CLEAR) 10/02/24 19:59 Urine pH 6.0 (5-7) 10/02/24 19:59 Ur Specific [place] 1.021 (1.005-1.030) 10/02/24 19:59 Urine Protein 1+ (Negative) A 10/02/24 19:59 Urine Glucose (UA) Negative (Normal) 10/02/24 19:59 Urine Ketones Trace (Negative) 10/02/24 19:59 Urine Blood Negative (Negative) 10/02/24 19:59 Urine Nitrate Negative (Negative) 10/02/24 19:59 Urine Bilirubin Negative (Negative) 10/02/24 19:59 Urine Urobilinogen 0.2 mg/dL (Negative) 10/02/24 19:59 Ur Leukocyte Esterase Trace (Negative) A 10/02/24 19:59 Urine RBC None /hpf (0-2) 10/02/24 19:59 Urine WBC 0-4 /hpf (0-5) H 10/02/24 19:59 Ur Squamous Epith Cells None /hpf (0-5) 10/02/24 19:59 Amorphous Sediment Not Reportable 10/02/24 19:59 Urine Bacteria Trace /hpf (NONE) 10/02/24 19:59 All radiology interpretation(s) finalized by discharge Discharge Plan Discharge Patient Disposition: Home Clinical Impression: Constipation Qualifiers: Constipation type: drug induced constipation Qualified Code(s): K59.03 - Drug induced constipation Abdominal pain Qualifiers: Abdominal location: unspecified location Qualified Code(s): R10.9 - Unspecified abdominal pain Condition: Stable Prescriptions: No Action losartan 25 mg tablet 25 mg PO DAILY Qty: 30 11RF omeprazole 40 mg capsule,delayed release(DR/EC) See Rx Instructions .ROUTE .COMPLEX Qty: 90 3RF Dose Instruction: TAKE 1 CAPSULE BY MOUTH EVERY DAY Rx Instructions: TAKE 1 CAPSULE BY MOUTH EVERY DAY sertraline 50 mg tablet 25 mg PO DAILY Qty: 30 11RF metoprolol tartrate 25 mg tablet See Rx Instructions .ROUTE .COMPLEX Qty: 180 3RF Dose Instruction: TAKE 1 TABLET BY MOUTH TWICE A DAY Rx Instructions: TAKE 1 TABLET BY MOUTH TWICE A DAY isosorbide mononitrate 30 mg tablet extended release 24 hr See Rx Instructions .ROUTE .COMPLEX Qty: 90 2RF Dose Instruction: TAKE 1 TABLET BY MOUTH EVERY DAY FOR BLOOD PRESSURE Rx Instructions: TAKE 1 TABLET BY MOUTH EVERY DAY FOR BLOOD PRESSURE multivitamin [Daily Multi-Vitamin] Tablet 1 tab PO QAM clopidogrel 75 mg tablet 75 mg PO QAM olopatadine [Pataday Twice Daily Relief] 0.1 % drops 1 drp ophthalmic (eye) BID PRN (Reason: allergies) Rx Instructions: separate doses by at least 6-8 hours rosuvastatin 40 mg tablet 40 mg PO DAILY aspirin 81 mg tablet,delayed release (DR/EC) 81 mg PO DAILY Discharge Orders: Discharge ED (Routine); Ordered 10/02/24 Ordered By: Enoch Rm Referrals: Sony Swift MD [Primary Care Provider] - 1 week Patient Instructions: Abdominal Pain (ED), Constipation - Adult Activity Restrictions/Additional Instructions: Your evaluation ER that included lab work as well as abdominal x-ray showed you are pretty backed up with stool. Otherwise the findings were unremarkable. This may be due to your recent use of pain medicine for your back pain. Please start [id number] stool softeners and laxatives as needed for the next 2 to 3 days. Please make sure you have several good bowel movements a day for the next 2 or 3 days to help cleanse yourself out. Please follow-up with your family practice physician within the next 7 to 10 days for further evaluation treatment as needed. If your pain worsens please return to the ER. Thank you for choosing [facility] for your healthcare needs today. Please realize that you were seen in the emergency department and that we are providing you with an emergency medical screening exam and this may not be a complete and all exclusive of all testing and/or medical workup we may need to determine your element or severity of your illness. It is very important that you follow-up as instructed with your primary care provider or specialist for the additional evaluation and to discuss your medical treatment plan. You may return to the emergency department should you have concerns or if your condition changes or worsens in any way. Print Language: [place] Coding Level of Care Code ED Covering And Lining Supervisor for Levi Daniel
[2024-10-02 19:46] LABS: Basophils % 0.3 %; Eosinophils % 0.3 %; Hematocrit 55.2 % (37-53); Lymphocytes # 1.1 10^3/uL (0.8-4.8); Mean Corpuscular Hemoglobin 29.4 pg (27-33); Mean Platelet Volume 8.9 fL (7.4-10.4); Monocytes # 0.8 10^3/uL (0.2-0.9); Monocytes % 6.3 %; Neutrophils % 84.7 %; Nucleated Red Blood Cells % 0 %; Platelet Count 143 10^3/cmm (157-399); Red Cell Distribution Width 13.3 % (12.1-15.1); White Blood Count 13.34 10^3/uL (3.29-11.43)
[2024-10-02] MEDS: lidocaine 2% viscous 15 ML, aluminum-mag hydrox-simethicon 30 ML, sucralfate oral liq 1 GM PO (19:52)
[2024-10-02] MEDS: ondansetron hcl ODT 4 mg Tab PO (19:54)
[2024-10-02 19:57] VITALS: BP 148/100; PULSE 103; O2SAT 95
[2024-10-02 20:04] LABS: Alanine Aminotransferase 33 U/L (0-41); Albumin Level 5.1 g/dL (3.5-5.2); Alkaline Phosphatase 76 U/L (40-130); Anion Gap 16.4 (5-19); Aspartate Amino Transferase 21 U/L (0-40); Blood Urea Nitrogen 19 mg/dL (8-23); Calcium 10.1 mg/dL (8.5-10.5); Carbon Dioxide 27 mmol/L (22-29); Chloride 101 mmol/L (98-107); Creatinine Clr Calc Pharmacy 71.0432; Glomerular Filtration Rate 74.5 mL/min (90-130); Glucose 121 mg/dL (65-115); Lipase 41 U/L (13-60); Osmolality Calculated 294 mOsm/kg (285-295); Potassium 4.4 mmol/L (3.5-5.1); Sodium 140 mmol/L (136-145); Total Bilirubin 2.5 mg/dL (0.15-1.2); Total Protein 8.1 g/dL (6.6-8.7)
[2024-10-02 20:10] LABS: Bilirubin Urine Negative (Negative); Blood Urine Negative (Negative); Glucose Urine UA Negative (Normal); Ketones Urine Trace (Negative); Leukocyte Esterase Urine Trace (Negative); Nitrate Urine Negative (Negative); Protein Urine 1+ (Negative); Specific Gravity, Urine 1.021 (1.005-1.030); Urine Appearance Clear (CLEAR); Urine Color Dark Yellow (Yellow); Urobilinogen Urine 0.2 mg/dL (Negative)
[2024-10-02 20:59] LABS: Add Urine Microscopic? YES; Bacteria Urine TRACE /hpf; UA Manual Slide Review YES; UA Slide Review UA Slide Review Perf; WBC Urine 0-4 /hpf (0-5)
[2024-10-02] MEDS: dicyclomine 20 mg Tablet PO (21:31)
[2024-10-02 21:32] VITALS: BP 124/71; PULSE 78; O2SAT 94
[2024-10-02 22:03] VITALS: BP 102/71; PULSE 70; O2SAT 92
[2024-10-02] MEDS: magnesium citrate Btl 296 mL PO (22:25)
[2024-10-02 22:38] VITALS: BP 101/72; PULSE 72; O2SAT 95
== END 2024-10-02 22:35 | disposition home or self-care (01) ==
PROVIDERS: Physician Assistant; Emergency Provider Emergency Medicine; PCP Family Medicine
DX: K59.03 Drug induced constipation (principal); R10.9 Unspecified abdominal pain; Z79.02 Long term (current) use of antithrombotics/antiplatelets; Z79.82 Long term (current) use of aspirin; Z86.73 Personal history of transient ischemic attack (TIA), and cerebral infarction without residual deficits; E78.5 Hyperlipidemia, unspecified; I10 Essential (primary) hypertension; I25.118 Atherosclerotic heart disease of native coronary artery with other forms of angina pectoris
CPT/HCPCS: 36415; 36416; 74018; 80053; 81001; 82962; 83690; 85025; 99284; Q0162

== ENCOUNTER 2024-10-29 22:06 | Emergency (ER) | payer MEDICARE, OTHER, SELFPAY ==
[2024-10-29 22:16] VITALS: BP 125/74; PULSE 87; RESP 18; TEMP 36.6; O2SAT 99; BMI 23.6
[2024-10-29 22:24] VITALS: BP 174/112; PULSE 91; RESP 20; O2SAT 95
[2024-10-29 22:43] VITALS: BP 119/57
--- NOTE | 2024-10-29 22:43 | CTR_ITS ---
PROCEDURE INFORMATION: Exam: CT Lumbar Spine Without Contrast Exam date and time: 10/29/2024 10:52 PM Age: 69 years old Clinical indication: Other: Post op lumbar fusion; Prior surgery; Surgery date: 3-7 days post-operative; Additional info: Low back pain TECHNIQUE: Imaging protocol: Computed tomography of the lumbar spine without contrast. Radiation optimization: All CT scans at this facility use at least one of these dose optimization techniques: automated exposure control; mA and/or kV adjustment per patient size (includes targeted exams where dose is matched to clinical indication); or iterative reconstruction. COMPARISON: CT lumbar spine wo con* [id number] 09/17/2024 4:17 PM RADIATION DOSE METRICS: Total DLP (mGy-cm): 720.96 FINDINGS: Bones/joints: Posterior fusion at L4 and L5 without evidence of hardware failure or loosening. Gallbladder and biliary ducts: Multiple tiny stones in the gallbladder. Kidneys and ureters: Bilateral simple appearing renal cysts are present which do not need further follow-up. Soft tissues: Unremarkable. CT/CT lumbar spine wo con* [id number] IMPRESSION: Posterior fusion at L4 and L5 without evidence of hardware failure or loosening. COMMENTS: Consistent with the [place] [employer]'s Incidental Findings Committee white paper (J Am Kirk Radiol 2018): Any incidental renal lesion less than 1 cm or classified as too small to characterize, or any incidental cystic renal lesion characterized as simple-appearing, is likely benign. No follow-up imaging is recommended for these lesions per consensus recommendations based on imaging criteria.
--- NOTE | 2024-10-29 22:56 | ED_ITS ---
HPI - Extremity Problem General: Chief complaint: Extremity Injury, Lower Stated complaint: post surg severe hip/leg/foot numb burn pain Time Seen by Provider: 10/29/24 22:40 History of Present Illness: 69-year-old man with a history of CVA, d epression, coronary artery disease, hype rtension, hyperlipidemia, anxiety and chronic back pain with a recent low back procedure done in [place] who presents to the emergency room with worsening pain since the surgery. He says he has burning pain down his right hip and down his back leg. He says he cannot take any NSAIDs because they had done a bone graft. No saddle numbness, no urinary retention or incontinence, no focal motor deficit, no sensory deficit. no recent fever. no cough. no shortness of breath. no chest pain. no abdominal pain. no nausea or vomiting. no dysuria. no altered mental status. no edema. Related Data Home Medications ?Medication ?Instructions ?Recorded ?Confirmed multivitamin (Daily Multi-Vitamin 1 tab PO QAM 0 09/17/24 tablet) aspirin 81 mg tablet,delayed 81 mg PO DAILY 10/19/21 0 09/17/24 release rosuvastatin 40 mg tablet 40 mg PO DAILY 10/19/2108/30 olopatadine 0.1 % eye drops 1 drp ophthalmic (eye) BID PRN 01/07/24 09/17/24 (Pataday Twice Daily Relief) allergies Previous Rx's ?Medication ?Instructions ?Recorded losartan 25 mg tablet 25 mg PO DAILY #30 tabs 10/20 omeprazole 40 mg capsule,delayed See Rx Instructions . Route 03/21/24 release .COMPLEX #90 caps sertraline 50 mg tablet 25 mg (1/2 x 50 mg) PO DAILY #30 05/02/24 tabs metoprolol tartrate 25 mg tablet See Rx Instructions . Route 08/04/24 .COMPLEX #180 tabs isosorbide mononitrate 30 mg See Rx Instructions .Rout e 08/26/24 tablet,extended release 24 hr .COMPLEX #90 tabs clopidogrel 75 mg tablet See Rx Instructions .Route 0 10/27/24 .COMPLEX #90 tabs hydrocodone 5 mg-acetaminophen 325 1 tab PO Q6H PRN pa in #20 tabs 10/29/24 mg tablet ondansetron 4 mg disintegrating 4 mg PO Q8H PRN nausea and 10/29/24 tablet vomiting #10 tabs polyethylene glycol 3350 17 17 g PO DAILY #510 grams 0 10/29/24 gram/dose oral powder (Miralax) Allergies Allergy/AdvReac Type Severity Reaction Status Date / Time atorvastatin Allergy NA Verified 10/02/24 18:35 morphine Allergy ADR-Nausea Verified 10/02/24 18:35 simvastatin Allergy NA Verified 10/02/24 18:35 Review of Systems Narrative: Constitutional symptoms: Negative except as documented in HPI. Skin symptoms: Negative except as documented in HPI. Eye symptoms: Negative except as documented in HPI. ENMT symptoms: Negative except as documented in HPI. Respiratory symptoms: Negative except as documented in HPI. Cardiovascular symptoms: Negative except as documented in HPI. Gastrointestinal symptoms: Negative except as documented in HPI. Genitourinary symptoms: Negative except as documented in HPI. Musculoskeletal symptoms: Negative except as documented in HPI. Neurologic symptoms: Negative except as documented in HPI. Psychiatric symptoms: Negative except as documented in HPI. Endocrine symptoms: Negative except as documented in HPI. PFSH ED PFSH: Medical History CVA (cerebral vascular accident) right sided. 12/2023. mostly resolved Depression Chronic back pain Urolithiasis Atherosclerotic heart disease of [place] coronary artery with other forms of angina pectoris EKG from 07/05/2020 EKG revealed bradycardia with a rate of [address]. [address]-T change Atypical chest pain Atherosclerotic heart disease of [place] coronary artery with unstable angina pectoris CAD (coronary artery disease) Hypertension Hyperlipidemia Arrhythmia Anxiety GERD (gastroesophageal reflux disease) Chronic prostatitis Surgical History Status post right inguinal hernia repair Hx of colonoscopy History of esophagogastroduodenoscopy (EGD) H/O laminectomy H/O shoulder surgery H/O heart artery stent total of 5 stents Family History Mother , 62 CAD (coronary artery disease) Father , at age 91 No problems noted. Social History Smoking and tobacco/nicotine status: unknown if used tobacco/nicotine Alcohol intake: never Substance/Drug Use: never Adopted: No Caregiver/support person: No Lives independently: No Household members: spouse Marital status: Current occupational status: retired Current gender identity: Male Physical Exam Narrative: EXAM NARRATIVE: General: Alert, no acute distress. Head: Normocephalic Neck: Trachea midline Eye: Extraocular movements are intact. Ears, nose, mouth and throat: Oral mucosa moist Respiratory: Respirations are non-labored Musculoskeletal: Normal ROM Back: no step off, no focal tenderness, some paraspinal muscle tenderness Neurological: Alert and oriented, No focal neurological deficit observed. Psychiatric: Cooperative, appropriate mood & affect. Course Vital Signs: Vital signs: Vital Signs Temperature 97.9 F 10/29/24 22:16 Pulse Rate 72 10/29/24 23:30 Respiratory Rate 20 H 10/29/24 22:24 Blood Pressure 125/73 10/29/24 23:30 Pulse Oximetry 97 10/29/24 23:30 Oxygen Delivery Me thod Room Air 10/29/24 22:16 MDM - Extremity (Nontraumatic) Medical Decision Making CT of the lumbar spine: Posterior fusion L4 and L5 without evidence of hardware failure or loosening. This was reviewed and interpreted by myself the emergency room physician. I also reviewed the radiology report. Assessment and plan: Sciatic back pain ?Solu-Medrol, Dilaudid and Norflex in the emergency room. - Discharged home - Discussed plan with patient. Answered any questions. - Evaluation and treatment of this problem were appropriate in the emergency setting. Lab Data Radiology Impressions Lumbar Spine CT 10/29/24 22:43 IMPRESSION: Posterior fusion at L4 and L5 without evidence of hardware failure or loosening. COMMENTS: Consistent with the [employer]'s Incidental Findings Committee white paper (J Am Kirk Radiol 2018): Any incidental renal lesion less than 1 cm or classified as too small to characterize, or any incidental cystic renal lesion characterized as simple-appearing, is likely benign. No follow-up imaging is recommended for these lesions per consensus recommendations based on imaging criteria. All radiology interpretation(s) finalized by discharge Discharge Plan Discharge Patient Disposition: Home Clinical Impression: Sciatic pain Condition: Stable Prescriptions: New hydrocodone-acetaminophen 5-325 mg tablet 1 tab PO Q6H PRN (Reason: pain) Qty: 20 0RF polyethylene glycol 3350 [Miralax] 17 gram/dose powder 17 g PO DAILY Qty: 510 0RF Rx Instructions: Take 1 scoop daily while taking pain medications. ondansetron 4 mg tablet,disintegrating 4 mg PO Q8H PRN (Reason: nausea and vomiting) Qty: 10 0RF No Action losartan 25 mg tablet 25 mg PO DAILY Qty: 30 11RF omeprazole 40 mg capsule,delayed release(DR/EC) See Rx Instructions .ROUTE .COMPLEX Qty: 90 3RF Dose Instruction: TAKE 1 CAPSULE BY MOUTH EVERY DAY Rx Instructions: TAKE 1 CAPSULE BY MOUTH EVERY DAY sertraline 50 mg tablet 25 mg PO DAILY Qty: 30 11RF metoprolol tartrate 25 mg tablet See Rx Instructions .ROUTE .COMPLEX Qty: 180 3RF Dose Instruction: TAKE 1 TABLET BY MOUTH TWICE A DAY Rx Instructions: TAKE 1 TABLET BY MOUTH TWICE A DAY isosorbide mononitrate 30 mg tablet extended release 24 hr See Rx Instructions .ROUTE .COMPLEX Qty: 90 2RF Dose Instruction: TAKE 1 TABLET BY MOUTH EVERY DAY FOR BLOOD PRESSURE Rx Instructions: TAKE 1 TABLET BY MOUTH EVERY DAY FOR BLOOD PRESSURE clopidogrel 75 mg tablet See Rx Instructions .ROUTE .COMPLEX Qty: 90 3RF Dose Instruction: TAKE 1 TABLET BY MOUTH EVERY DAY IN THE MORNING Rx Instructions: TAKE 1 TABLET BY MOUTH EVERY DAY IN THE MORNING multivitamin [Daily Multi-Vitamin] Tablet 1 tab PO QAM olopatadine [Pat[place] Twice Daily Relief] 0.1 % drops 1 drp ophthalmic (eye) BID PRN (Reason: allergies) Rx Instructions: separate doses by at least 6-8 hours rosuvastatin 40 mg tablet 40 mg PO DAILY aspirin 81 mg tablet,delayed release (DR/EC) 81 mg PO DAILY Discharge Orders: Discharge ED (Routine); Ordered 10/29/24 Ordered By: Katy Mendez Referrals: Sony Swift MD [Primary Care Provider] - Discharge Diet: Usual diet Discharge Activity: Increase activity as tolerated Patient Instructions: Opioid Safety, Pain Management Activity Restrictions/Additional Instructions: Thank you for choosing [facility] for your healthcare needs today. Please realize this is an emergency room and that we are providing you with a medical screening exam and this may not be complete and all inclusive of all the testing and or work up that you may need to determine your ailment or severity of your illness. You have been screened and evaluated and felt safe for discharge. Health conditions do change or evolve sometimes and as such it is important that you follow up with your Primary Doctor to be re checked, 3-5 days is a general good time frame for follow up. You are always welcome to return to the ED for re assessment if your symptoms are worsening or you have new concerns Print Language: Martiniquais Coding Level of Care Code ED Auto Haulaway Driver for Levi Daniel
[2024-10-29] MEDS: ondansetron 2 mg/ML SDV 2 mL 4 MG IVP (23:18)
[2024-10-29] MEDS: orphenadrine 30 mg/mL Inj 2 mL 60 MG IVP (23:19)
[2024-10-29 23:25] VITALS: BP 132/74; PULSE 66; O2SAT 98
[2024-10-29 23:30] VITALS: BP 125/73; PULSE 72; O2SAT 97
[2024-10-29] MEDS: HYDROmorphone 0.5 MG/0.5 ML INJ IVP (23:48)
[2024-10-30] VITALS: PULSE 69; O2SAT 96
[2024-10-30 02:51] VITALS: BP 122/73; PULSE 56; O2SAT 95
== END 2024-10-30 01:00 | disposition home or self-care (01) ==
PROVIDERS: Emergency Provider Emergency Medicine; PCP Family Medicine
DX: M54.30 Sciatica, unspecified side (principal); Z79.02 Long term (current) use of antithrombotics/antiplatelets; Z79.82 Long term (current) use of aspirin; E78.5 Hyperlipidemia, unspecified; I10 Essential (primary) hypertension; I25.10 Atherosclerotic heart disease of native coronary artery without angina pectoris; Z86.73 Personal history of transient ischemic attack (TIA), and cerebral infarction without residual deficits; Z98.890 Other specified postprocedural states
CPT/HCPCS: 36415; 72131; 96374; 96375; 99285; J1171; J2360; J2405

== ENCOUNTER → 2024-12-24 11:47 | Outpatient (BNVA) | payer MEDICARE, OTHER, SELFPAY | PROVIDERS: PCP Family Medicine; Visit Provider Family Medicine | DX: R97.20 Elevated prostate specific antigen [PSA] (principal) | CPT/HCPCS: 84153 ==

== ENCOUNTER → 2025-02-24 13:21 | Outpatient (BNVA) | payer MEDICARE, OTHER, SELFPAY | PROVIDERS: PCP Family Medicine; Visit Provider Family Medicine | DX: R10.9 Unspecified abdominal pain (principal) | CPT/HCPCS: 80053; 83690; 85025 ==

== ENCOUNTER 2025-07-07 13:50 | Outpatient (CLI) | payer MEDICARE, OTHER, SELFPAY ==
--- NOTE | 2025-07-07 13:59 | XR_ITS ---
WS: [id number] XR lumbar spine 2-3V* [id number] REASON FOR EXAM: SPONDYLOSIS W/O MYEOPATHY OR RADCIULOPATHY,LUMBAR REGION FINDINGS: Posterior decompression with pedicle screws and interbody fusion devices L4-L5. Lateral bony fusion masses L4-L5. Surgical appliances are intact and in proper position and alignment unchanged compared to the CT scan of 09/17/2024. Remainder of the lumbar spine is unchanged compared to the previous study. XR/XR lumbar spine 2-3V* [id number] IMPRESSION: Stable posterior lumbar fusion.
== END 2025-07-07 13:51 | disposition home or self-care (01) ==
PROVIDERS: PCP Family Medicine; Visit Provider Neurological Surgery
DX: M47.816 Spondylosis without myelopathy or radiculopathy, lumbar region (principal); M43.26 Fusion of spine, lumbar region
CPT/HCPCS: 72100